=== PATIENT | female | born 1955 | race Caucasian/White ===

== ENCOUNTER 2020-09-22 14:51 | Inpatient (IN) | payer BC ==
[~2020-09-22] VITALS: Ht 162.6 cm; Wt 118.2 kg
[2020-09-22] MEDS ORDERED: LIPITOR (15:51)
[2020-09-22] MEDS ORDERED: OMEPRAZOLE (15:51)
[2020-09-22] MEDS ORDERED: LEVOTHYROXINE (15:51)
[2020-09-22] MEDS ORDERED: CELEBREX (15:51)
[2020-09-22] MEDS ORDERED: HYDROCHLOROTHIAZIDE (15:51)
[2020-09-22] MEDS ORDERED: LOTENSIN (15:51)
[2020-09-22] MEDS ORDERED: ZYLOPRIM (15:51)
[2020-09-22] MEDS ORDERED: TRAZODONE (15:51)
[2020-09-22 16:13] LABS: BASOPHILS % (AUTO) 0.3 % (0.0-2.0); HEMOGLOBIN 12.9 g/dL (10.9-14.3); LYMPHOCYTES # (AUTO) 0.4 K/uL (20.0-40.0); LYMPHOCYTES % (AUTO) 4.1 % (20.5-51.5); MEAN CORPUSCULAR HEMOGLOBIN 30.6 uug (24.7-32.8); MEAN CORPUSCULAR HGB CONC 34 g/dL (32.3-35.6); MEAN CORPUSCULAR VOLUME 90.5 fL (75.5-95.3); MONOCYTES # (AUTO) 0.4 K/uL (2.0-10.0); MONOCYTES % (AUTO) 3.8 % (0.0-11.0); NEUTROPHILS # (AUTO) 9.8 K/uL (1.8-8.9); NEUTROPHILS % (AUTO) 91.8 % (38.5-71.5); PLATELET COUNT (AUTO) 234 K/uL (179-408); WHITE BLOOD COUNT (AUTO) 10.7 K/uL (3.8-11.8)
[2020-09-22] MEDS ORDERED: AZITHROMYCIN IV 500 MG in IV DEXTROSE 5% 250 ML IV ONE (16:15)
[2020-09-22] MEDS ORDERED: DEXAMETHASONE SOD PHOSPHATE 4 MG INJ IV ONE (16:15)
[2020-09-22] MEDS ORDERED: CEFTRIAXONE 1 G in IV DEXTROSE 5% 50 ML IV ONE (16:15)
[2020-09-22] MEDS ORDERED: IV NS 1000 ML 1,000 ML IV ONE ×2 (16:15→18:45)
--- NOTE | 2020-09-22 16:22 | NUR ---
Dr Buchanan talked to patient's daughter in the ER waiting room.
[2020-09-22] MEDS ORDERED: DEXAMETHASONE SOD PHOSPHATE 10 MG INJ ONE (16:23)
[2020-09-22] MEDS ORDERED: CEFTRIAXONE /D5W 50ML IVPB **ER PYXIS IV ONE (16:23)
[2020-09-22] MEDS ORDERED: AZITHROMYCIN 500MG/ D5W 250ML IVPB **ER PYXIS ONLY IV ONE (16:23)
[2020-09-22 16:26] LABS: BILIRUBIN,DIRECT 0.1 mg/dL (0.0-0.2); BILIRUBIN,TOTAL 0.4 mg/dL (0.2-1.0); CREATININE 1.3 mg/dL (0.6-1.3); TOTAL PROTEIN, SERUM 7.9 g/dL (6.4-8.2)
[2020-09-22 16:31] LABS: FERRITIN 968 ng/mL (8-252); LACTATE DEHYDROGENASE 395 U/L (81-234)
[2020-09-22 16:40] LABS: POTASSIUM 3.7 mmol/L (3.5-5.1)
[2020-09-22] MEDS ORDERED: ENOXAPARIN SODIUM 30 MG/0.3 ML DISP.SYRIN SUBCUT ONE (17:30)
[2020-09-22] MEDS ORDERED: ENOXAPARIN SODIUM 40 MG/0.4 ML DISP.SYRIN SQ ONE (17:35)
--- NOTE | 2020-09-22 18:28 | NUR ---
Patient is resting comfortably on gurney with eyes closed, pending available ICU/CCU nurse & bed@this time. Patient is tolerating high flow oxygen (40 liters/min,FqF4=246%).
[2020-09-22] MEDS ORDERED: ONDANSETRON 4 MG/2 ML VIAL IV PRN (18:30)
[2020-09-22] MEDS ORDERED: INSULIN REGULAR, HUMAN 300 UNITS/3 ML VIAL SQ PRN (18:30)
[2020-09-22] MEDS ORDERED: INSULIN REGULAR, HUMAN 300 UNIT/3 ML VIAL SQ PRN (18:30)
[2020-09-22] MEDS ORDERED: ALBUTEROL SULFATE 8 GM HFA.AER.AD IH PRN (18:30)
[2020-09-22] MEDS ORDERED: DEXTROSE 50% 50 ML DISP.SYRIN IV PRN (18:30)
--- NOTE | 2020-09-22 19:06 | NUR ---
Hands off report given to NICOL Courtney : still for CCU/ICU admission, pending available bed & nurse, needs MRSA swab and a hospital bed (from [facility]) if patients stays longer in ER for more comfort.
--- NOTE | 2020-09-22 19:20 | NUR ---
Patient laying on gurny A/Ox3. On high flow O2 via N/C on 40 Liters of O2 at 100%. Patient denies SOB, CP, N/V at this time. Satting at 97%.
[2020-09-22] MEDS: BLOOD SUGAR DIAGNOSTIC 1 EACH STRIP VI SCH (20:22)
[2020-09-22] MEDS ORDERED: INSULIN REGULAR, HUMAN 300 UNIT/3 ML VIAL ONE (20:28)
[2020-09-22] MEDS ORDERED: NOREPINEPHRINE BITARTRATE 8 MG in IV NORMAL SALINE 242 ML IV PRN (21:30)
[2020-09-23] VITALS (8 sets, daily range): BP systolic 107–148; BP diastolic 60–78
--- NOTE | 2020-09-23 | NUR ---
Patient intermittenly sleeping with no distress noted. Patient tolerating high flow N/C with 40 Liters of O2 at 100%. Continue critical monitoring.
[2020-09-23 06:07] LABS: ABG HCO3 19.4 mmol/L; ABG PCO2 30.5 mmHg (35.0-45.0); ABG PH 7.421 (7.350-7.450); ABG PO2 56.8 mmHg (75.0-100.0); ABG SITE RIGHT RADIAL; ABG TOTAL HEMOGLOBIN 13.2 G/dL (12.0-16.0); MetHb 0.3 % (0.0-1.5); O2Hb 89.3 % (94.0-97.0); VENT MODE HF - Aquinox
[2020-09-23 07:27] LABS: BASOPHILS % (AUTO) 0.1 % (0.0-2.0); HEMOGLOBIN 12.9 g/dL (10.9-14.3); LYMPHOCYTES # (AUTO) 0.8 K/uL (20.0-40.0); LYMPHOCYTES % (AUTO) 7.9 % (20.5-51.5); MEAN CORPUSCULAR HEMOGLOBIN 31.1 uug (24.7-32.8); MEAN CORPUSCULAR HGB CONC 34 g/dL (32.3-35.6); MEAN CORPUSCULAR VOLUME 91.7 fL (75.5-95.3); MONOCYTES # (AUTO) 0.6 K/uL (2.0-10.0); MONOCYTES % (AUTO) 6.6 % (0.0-11.0); NEUTROPHILS # (AUTO) 8.4 K/uL (1.8-8.9); NEUTROPHILS % (AUTO) 85.4 % (38.5-71.5); PLATELET COUNT (AUTO) 235 K/uL (179-408); RED BLOOD CELL COUNT(AUTO) 4.15 MIL/uL (3.63-4.92); WHITE BLOOD COUNT (AUTO) 9.8 K/uL (3.8-11.8)
[2020-09-23] MEDS: BLOOD SUGAR DIAGNOSTIC 1 EACH STRIP VI SCH ×4 (07:35→21:00)
[2020-09-23 07:40] LABS: BILIRUBIN,TOTAL 0.5 mg/dL (0.2-1.0); CREATININE 1.1 mg/dL (0.6-1.3); MAGNESIUM 1.6 mg/dL (1.8-2.4); PHOSPHOROUS 2.6 mg/dL (2.5-4.9); POTASSIUM 4.1 mmol/L (3.5-5.1); TOTAL PROTEIN, SERUM 8.2 g/dL (6.4-8.2)
--- NOTE | 2020-09-23 08:21 | NUR ---
PT IS RESTING IN BED COMFORTABLY. CONTINUE TO MONITOR THE PT.
[2020-09-23] MEDS ORDERED: ENOXAPARIN SODIUM 40 MG/0.4 ML DISP.SYRIN SQ ONE (09:03)
[2020-09-23] MEDS ORDERED: DEXAMETHASONE SOD PHOSPHATE 10 MG INJ ONE (09:03)
[2020-09-23] MEDS ORDERED: ASPIRIN 81 MG TAB.CHEW ONE (09:03)
[2020-09-23] MEDS: DEXAMETHASONE SOD PHOSPHATE 4 MG INJ IV SCH (09:11)
[2020-09-23] MEDS: ENOXAPARIN SODIUM 40 MG/0.4 ML DISP.SYRIN SQ SCH (09:12)
[2020-09-23] MEDS: ASPIRIN EC 81 MG TABLET.DR PO SCH (09:12)
[2020-09-23] MEDS ORDERED: MAGNESIUM SULFATE/D5W 200 ML ONE (09:58)
[2020-09-23] MEDS: MAGNESIUM SULFATE/D5W 100 ML IV SCH ×2 (10:05→11:30)
[2020-09-23] MEDS ORDERED: DEXTROSE 50% 50 ML DISP.SYRIN IV PRN (10:30)
[2020-09-23] MEDS ORDERED: MAGNESIUM SULFATE/D5W 100 ML IV SCH (10:30)
[2020-09-23] MEDS ORDERED: HYDR25TA4 PO (10:52)
[2020-09-23] MEDS ORDERED: SITA100T PO (10:52)
[2020-09-23] MEDS ORDERED: OMEP20CA15 PO (10:52)
[2020-09-23] MEDS ORDERED: ALLO100T PO (10:52)
[2020-09-23] MEDS ORDERED: CELE200C PO (10:52)
[2020-09-23] MEDS ORDERED: INSU100V7 SQ (10:52)
[2020-09-23] MEDS ORDERED: TRAZ-257 PO (10:52)
[2020-09-23] MEDS ORDERED: GLIM1TAB18 PO (10:52)
[2020-09-23] MEDS ORDERED: METF-440 PO (10:52)
[2020-09-23] MEDS ORDERED: ATOR40TA PO (10:52)
[2020-09-23] MEDS ORDERED: CHOL10002 PO (10:52)
[2020-09-23] MEDS ORDERED: LEVO150T PO (10:52)
[2020-09-23] MEDS ORDERED: BENA40TA67 PO (10:52)
[2020-09-23] MEDS ORDERED: FERR325T28 PO (10:53)
[2020-09-23] MEDS ORDERED: AMLO10TA4 PO (10:54)
[2020-09-23] MEDS ORDERED: NPH,100V SQ ×2 (10:56)
[2020-09-23] MEDS ORDERED: INSU100V28 SQ (10:58)
[2020-09-23] MEDS: INSULIN REGULAR, HUMAN 300 UNITS/3 ML VIAL SQ PRN (11:55)
[2020-09-23 15:09] LABS: *BILIRUBIN,URIN NEGATIVE (NEGATIVE); *CLARITY,URINE CLEAR (CLEAR); *COLOR,URINE YELLOW (YELLOW); *CREATININE,URINE 89.7 mg/dL (30-125); *KETONES,URINE NEGATIVE (NEGATIVE); *URINE TOTAL PROTEIN RANDOM 89.7 mg/dL (<150/24HR); *UROBILINOGEN,URINE 0.2 E.U./dl (NORMAL); LEUKOCYTE ESTERASE ,URINE NEGATIVE (NEGATIVE); NITRITE, URINE NEGATIVE (NEGATIVE); UGLUCOSE 2+ (NEGATIVE)
[2020-09-23 15:13] LABS: *BLOOD, URINE TRACE LYSED (NEGATIVE)
--- NOTE | 2020-09-23 15:43 | NUR ---
DR TIJERINA EVALUATED THE PT.
--- NOTE | 2020-09-23 16:20 | NUR ---
REPORT WAS GIVEN TO CCU NICOL MEJIA PT WAS TRANSFERED TO ROOM CCU 4.
--- NOTE | 2020-09-23 16:52 | NUR ---
Patient in from E[facility] via [facility] transported by REFRIGERATION SPECIALISTEmilia Toney.. Patient AAOX4. vitals: hr 111, 133/78, saturation of 85% on High-flow 40L. patient desaturating to the mid-80's with minimal exacerbation. Iv line G20 to Right hand HL, patent. Over all skin c.d.i. Upon arrival pt. on the phone with family and period of desaturation sustained. Addendum: 09/23/20 at 1731 by JACKIE SHAIKH RN Temp of 100.8
[2020-09-23 17:05] LABS: RBC,URINE 0-3 /HPF (0-3); WBC,URINE 0-3 /HPF (0-3)
[2020-09-23 17:06] LABS: BACTERIA,URINE FEW /HPF (NONE SEEN); SQUAMOUS EPITHELIAL CELL,UR FEW /HPF (NONE SEEN)
[2020-09-23] MEDS: ACETAMINOPHEN 650 MG SUPP.RECT RC PRN (17:33)
[2020-09-23] MEDS: IV NS 1000 ML 1,000 ML IV PRN (17:35)
[2020-09-23] MEDS: AZITHROMYCIN IV 500 MG in IV DEXTROSE 5% 250 ML IV SCH (17:48)
[2020-09-23] MEDS: CEFTRIAXONE 1 G in IV DEXTROSE 5% 50 ML IV SCH (18:54)
--- NOTE | 2020-09-23 19:15 | NUR ---
received patient awake , oriented x 4 , able to follow command on high flow 100 % , saturating 90 % , hr 93 , bp of 143 /73 t of 99.0 iv ns at 75 ml , iv intact
[2020-09-23] MEDS ORDERED: REMDESIVIR (CHARGED) 200 MG in IV NORMAL SALINE 250 ML IV ONE (20:00)
--- NOTE | 2020-09-23 20:00 | NUR ---
talked to daughter , update given on the patient's condition , breathing and mental status
--- NOTE | 2020-09-23 22:00 | NUR ---
picc line is here to insert picc
--- NOTE | 2020-09-23 23:00 | NUR ---
cxr done , cody to use piccline
[2020-09-24] VITALS (23 sets, daily range): BP systolic 117–168; BP diastolic 35–91
--- NOTE | 2020-09-24 00:30 | NUR ---
patient was place on addtional 100 % nrb to a high flow on 100 % to keep saturation > 85% , due to patient oxygen saturation only low 80 's patient shows mild labored breating at rest
[2020-09-24] MEDS: INSULIN REGULAR, HUMAN 300 UNITS/3 ML VIAL SQ PRN ×2 (01:45→21:30)
[2020-09-24 05:08] LABS: BASOPHILS % (AUTO) 0.2 % (0.0-2.0); HEMATOCRIT 38.7 % (31.2-41.9); LYMPHOCYTES # (AUTO) 1.2 K/uL (20.0-40.0); LYMPHOCYTES % (AUTO) 10.6 % (20.5-51.5); MEAN CORPUSCULAR HEMOGLOBIN 30.9 uug (24.7-32.8); MEAN CORPUSCULAR HGB CONC 34 g/dL (32.3-35.6); MEAN CORPUSCULAR VOLUME 91.7 fL (75.5-95.3); MONOCYTES # (AUTO) 0.7 K/uL (2.0-10.0); MONOCYTES % (AUTO) 5.7 % (0.0-11.0); NEUTROPHILS # (AUTO) 9.7 K/uL (1.8-8.9); NEUTROPHILS % (AUTO) 83.5 % (38.5-71.5); PLATELET COUNT (AUTO) 306 K/uL (179-408); RED BLOOD CELL COUNT(AUTO) 4.22 MIL/uL (3.63-4.92); WHITE BLOOD COUNT (AUTO) 11.6 K/uL (3.8-11.8)
[2020-09-24 05:41] LABS: BILIRUBIN,DIRECT 0.2 mg/dL (0.0-0.2); BILIRUBIN,TOTAL 0.3 mg/dL (0.2-1.0); MAGNESIUM 2.1 mg/dL (1.8-2.4); PHOSPHOROUS 2.2 mg/dL (2.5-4.9); POTASSIUM 3.9 mmol/L (3.5-5.1); TOTAL PROTEIN, SERUM 8.1 g/dL (6.4-8.2)
[2020-09-24] MEDS: ACETAMINOPHEN 650 MG SUPP.RECT RC PRN (05:44)
[2020-09-24 05:48] LABS: THYROID STIMULATING HORMONE 0.963 mIU/mL (0.358-3.740)
--- NOTE | 2020-09-24 06:00 | NUR ---
instructed patient to either try to sleep on the side or prone positioning if can tolerate , verbalizes understanding , oxygen saturation only on high flow at100 % , on lateral positioning saturating 95% , hr 95 , bp of 161 / 73 rr 30 , bs of 267 , temp of 100 , 4 , tylenol pr given
[2020-09-24] MEDS: BLOOD SUGAR DIAGNOSTIC 1 EACH STRIP VI SCH ×4 (06:16→21:30)
[2020-09-24] MEDS: INSULIN REGULAR, HUMAN 300 UNIT/3 ML VIAL SQ PRN (06:18)
[2020-09-24] MEDS: ASPIRIN EC 81 MG TABLET.DR PO SCH (08:06)
[2020-09-24] MEDS: ENOXAPARIN SODIUM 40 MG/0.4 ML DISP.SYRIN SQ SCH (08:06)
[2020-09-24] MEDS: DEXAMETHASONE SOD PHOSPHATE 4 MG INJ IV SCH (08:06)
--- NOTE | 2020-09-24 11:00 | NUR ---
Attending physician Dr. Hoff, in the unit to see and examine pt. order to continue with care plan received. Addendum: 09/24/20 at 1815 by JACKIE SHAIKH RN user error entry intended for a different pt.
[2020-09-24] MEDS: IV NS 1000 ML 1,000 ML IV PRN (13:04)
--- NOTE | 2020-09-24 14:00 | NUR ---
Attending Emilee Medina in the unit to follow up on pt. orders to continue with care plan.
--- NOTE | 2020-09-24 14:00 | NUR ---
Pulmonary services, Dr. Lama in the unit to see and examine pt. report given orders received and implemented.
[2020-09-24 15:41] LABS: ABG BASE EXCESS -1.3 mmol/L; ABG HCO3 21.5 mmol/L; ABG PCO2 30.6 mmHg (35.0-45.0); ABG PH 7.464 (7.350-7.450); ABG PO2 46.9 mmHg (75.0-100.0); ABG SITE RIGHT RADIAL; ABG TOTAL HEMOGLOBIN 13.6 G/dL (12.0-16.0); COHb 1.1 % (0.5-1.5); MetHb 0.3 % (0.0-1.5); VENT MODE HIGH FLOW NASAL CANULA
--- NOTE | 2020-09-24 16:15 | NUR ---
PER DR LILLIANA MALDONADO PRN FOR SOB. PT CURRENTLY TOLERATING HIGH FLOW WITHOUT RESPIRATORY DISTRESS . WILL CONTINUE TO MONITOR
[2020-09-24] MEDS ORDERED: NEUTRA PHOS PACKET PO ONE (16:30)
[2020-09-24] MEDS ORDERED: GLIMEPIRIDE 2 MG TABLET PO SCH (17:00)
[2020-09-24] MEDS: JANUVIA 100 MG PO SCH (17:00)
[2020-09-24] MEDS: GLIMEPIRIDE 2 MG TABLET PO SCH (17:00)
[2020-09-24] MEDS: METFORMIN HCL 500 MG TABLET PO SCH (17:00)
[2020-09-24] MEDS: AZITHROMYCIN IV 500 MG in IV DEXTROSE 5% 250 ML IV SCH (17:07)
[2020-09-24] MEDS ORDERED: LABETALOL HCL 100 MG/20 ML VIAL IV PRN (17:15)
[2020-09-24] MEDS ORDERED: SODIUM PHOSPHATE MM 7.5 MMOL in IV NORMAL SALINE 100 ML IV ONE (18:00)
[2020-09-24] MEDS: CEFTRIAXONE 1 G in IV DEXTROSE 5% 50 ML IV SCH (18:21)
--- NOTE | 2020-09-24 19:10 | NUR ---
Received patient in bed in a left lateral position. Patient currently on Vapotherm High-glow nasal cannula @40L/min and a non-rebreather mask running 15L/min. Oxygen SAT 94%. Patient is a/o x4 and moves independently in bed. Patient is sinus tachy on the monitor. f/c present draining clear yellow urine. COVID-19 +
--- NOTE | 2020-09-24 19:20 | NUR ---
Patient in significant respiratory distress with desaturation into the mid 70s. Attempted to assistant football coach breathing along with repositioning with no success. Oxygen saturation sustained @80% with high flow NC and 15L/min nonrebreather mask. RT involved and will attempt BiPAP.
--- NOTE | 2020-09-24 19:50 | NUR ---
Patient currently in prone position now. Patient saturation increased to 85% and being maintained at that level. Advised RT to start BiPAP.
[2020-09-24] MEDS: REMDESIVIR (CHARGED) 100 MG in IV NORMAL SALINE 100 ML IV SCH (20:05)
--- NOTE | 2020-09-24 20:59 | NUR ---
Patient could not tolerate the BiPAP mask. Patient back on High flow NC plus 15L NRBM. Remains maintaining SAT of 85-86%. Patient remains in prone position.
[2020-09-24] MEDS ORDERED: ATORVASTATIN 40 MG TABLET PO SCH (21:00)
[2020-09-24] MEDS: INSULIN GLARGINE,HUM 300 UNITS/3 ML CARTRIDGE SQ SCH (21:16)
--- NOTE | 2020-09-24 21:50 | NUR ---
Myself and the RT spent a good amount of time working with this patient getting her into a comfortable positions and adjusting Spo2 sensors. Patient seems to prefer a right anterior oblique position(Fitch position), just short of full prone. Oxygen saturation maintained at 94-96% in this position and the patient is no longer in any distress. Patient provided with several additional pillows to maintain comfort and position. Instructed patient to try to maintain a comfortable position that she feels allows her to breath easiest.
--- NOTE | 2020-09-24 22:00 | NUR ---
Family called and informed them of the patients condition. I made every attempt to answer all questions to keep them well informed as to her plan of care. I also informed them to keep contact with the patient to a minimum to allow her to rest as any exertion can easily cause her to desaturate. Informed them that we can pass on any messages they wish to convey during this time, and as the patient's condition improves, they can begin personal calls again.
--- NOTE | 2020-09-24 23:55 | NUR ---
Patient appears to be doing much better. O2 SAT currently 100% and the patient is resting well, though does complain of some discomfort due to the positioning she is in.
[2020-09-25] VITALS (24 sets, daily range): BP systolic 104–169; BP diastolic 44–83
[2020-09-25] MEDS: IV NS 1000 ML 1,000 ML IV PRN (05:18)
[2020-09-25 05:30] LABS: BASOPHILS % (AUTO) 0.4 % (0.0-2.0); HEMATOCRIT 38.1 % (31.2-41.9); LYMPHOCYTES # (AUTO) 1.2 K/uL (20.0-40.0); LYMPHOCYTES % (AUTO) 9.9 % (20.5-51.5); MEAN CORPUSCULAR HEMOGLOBIN 31.2 uug (24.7-32.8); MEAN CORPUSCULAR HGB CONC 34 g/dL (32.3-35.6); MEAN CORPUSCULAR VOLUME 91.3 fL (75.5-95.3); MONOCYTES # (AUTO) 0.5 K/uL (2.0-10.0); MONOCYTES % (AUTO) 4.6 % (0.0-11.0); NEUTROPHILS # (AUTO) 9.9 K/uL (1.8-8.9); NEUTROPHILS % (AUTO) 85.1 % (38.5-71.5); PLATELET COUNT (AUTO) 339 K/uL (179-408); RED BLOOD CELL COUNT(AUTO) 4.17 MIL/uL (3.63-4.92); WHITE BLOOD COUNT (AUTO) 11.7 K/uL (3.8-11.8)
[2020-09-25 06:21] LABS: BILIRUBIN,DIRECT 0.2 mg/dL (0.0-0.2); BILIRUBIN,TOTAL 0.5 mg/dL (0.2-1.0); CREATININE 0.9 mg/dL (0.6-1.3); MAGNESIUM 1.6 mg/dL (1.8-2.4); PHOSPHOROUS 1.9 mg/dL (2.5-4.9); POTASSIUM 3.6 mmol/L (3.5-5.1); TOTAL PROTEIN, SERUM 7.6 g/dL (6.4-8.2)
[2020-09-25] MEDS ORDERED: LEVOTHYROXINE SODIUM 125 MCG TABLET PO SCH (07:00)
[2020-09-25] MEDS ORDERED: LEVOTHYROXINE SODIUM 100 MCG TABLET PO SCH (07:00)
[2020-09-25] MEDS: PANTOPRAZOLE SODIUM 40 MG TABLET.DR PO SCH (07:02)
[2020-09-25] MEDS: INSULIN REGULAR, HUMAN 300 UNIT/3 ML VIAL SQ PRN ×3 (07:22→17:11)
[2020-09-25] MEDS: BLOOD SUGAR DIAGNOSTIC 1 EACH STRIP VI SCH ×4 (07:23→21:16)
[2020-09-25] MEDS ORDERED: LEVOTHYROXINE SODIUM 150 MCG TABLET PO SCH (07:30)
[2020-09-25] MEDS: DEXAMETHASONE SOD PHOSPHATE 4 MG INJ IV SCH (08:16)
[2020-09-25] MEDS: ALLOPURINOL 100 MG TABLET PO SCH (08:19)
[2020-09-25] MEDS: GLIMEPIRIDE 2 MG TABLET PO SCH ×2 (08:20→16:52)
[2020-09-25] MEDS: CHOLECALCIFEROL 1,000 UNIT TABLET PO SCH (08:20)
[2020-09-25] MEDS: ASPIRIN EC 81 MG TABLET.DR PO SCH (08:20)
[2020-09-25] MEDS: FERROUS SULFATE 325 MG TABEC PO SCH (08:30)
[2020-09-25] MEDS: AMLODIPINE 10 MG TABLET PO SCH (08:31)
[2020-09-25] MEDS: BENAZEPRIL HCL 20 MG TABLET PO SCH (08:32)
[2020-09-25] MEDS: CELECOXIB 200 MG CAPSULE PO SCH (08:32)
[2020-09-25] MEDS: JANUVIA 100 MG PO SCH (08:34)
[2020-09-25] MEDS: ENOXAPARIN SODIUM 40 MG/0.4 ML DISP.SYRIN SQ SCH (08:35)
[2020-09-25] MEDS: MAGNESIUM SULFATE/D5W 100 ML IV SCH ×2 (08:43→10:16)
[2020-09-25] MEDS: METFORMIN HCL 500 MG TABLET PO SCH ×2 (08:43→16:56)
[2020-09-25] MEDS ORDERED: HYDROCHLOROTHIAZIDE 25 MG TABLET PO SCH (09:00)
[2020-09-25] MEDS ORDERED: Medication Not On Formulary EA (Omeprazole 20 MG) PO SCH (09:00)
[2020-09-25] MEDS ORDERED: SODIUM PHOSPHATE MM 15 MMOL in IV NORMAL SALINE 250 ML IV ONE (09:00)
[2020-09-25] MEDS: LEVOTHYROXINE SODIUM 100 MCG VIAL IV SCH (09:29)
[2020-09-25] MEDS: POTASSIUM CHLORIDE 50 ML IV SCH ×2 (12:12→13:36)
--- NOTE | 2020-09-25 14:39 | NUR ---
Dr. Lama here to see pt. Full report given. New orders received.
[2020-09-25] MEDS ORDERED: diphenhydrAMINE 50 MG/1 ML VIAL IV ONE (16:30)
[2020-09-25] MEDS ORDERED: ACETAMINOPHEN 650 MG/20.3 ML LIQUID UDC PO ONE (16:30)
[2020-09-25] MEDS ORDERED: TOCILIZUMAB 400 MG in IV NORMAL SALINE 80 ML IV ONE (17:00)
[2020-09-25] MEDS: AZITHROMYCIN IV 500 MG in IV DEXTROSE 5% 250 ML IV SCH (18:19)
--- NOTE | 2020-09-25 19:10 | NUR ---
Received patient in bed in a left lateral position. Patient currently on Vapotherm High-glow nasal cannula @40L/min and a non-rebreather mask running 15L/min. Oxygen SAT 996-99%. Patient is a/o x4 and moves independently in bed. Patient is sinus rhythm on the monitor. f/c present draining clear yellow urine. COVID-19 +. Patient appears to be doing better than the previous night, in better spirits and not as concerned as she was the previous night.
[2020-09-25] MEDS: CEFTRIAXONE 1 G in IV DEXTROSE 5% 50 ML IV SCH (20:06)
[2020-09-25] MEDS: REMDESIVIR (CHARGED) 100 MG in IV NORMAL SALINE 100 ML IV SCH (20:47)
[2020-09-25] MEDS: ATORVASTATIN 40 MG TABLET PO SCH (20:55)
[2020-09-25] MEDS: INSULIN GLARGINE,HUM 300 UNITS/3 ML CARTRIDGE SQ SCH (20:58)
[2020-09-25] MEDS: INSULIN REGULAR, HUMAN 300 UNITS/3 ML VIAL SQ PRN (21:16)
[2020-09-26] VITALS (24 sets, daily range): BP systolic 111–149; BP diastolic 49–82
[2020-09-26 05:27] LABS: ABG BASE EXCESS -0.8 mmol/L; ABG HCO3 23.6 mmol/L; ABG PCO2 38.6 mmHg (35.0-45.0); ABG PH 7.405 (7.350-7.450); ABG PO2 51.5 mmHg (75.0-100.0); ABG SITE RIGHT RADIAL; MetHb 0.3 % (0.0-1.5); O2Hb 85.8 % (94.0-97.0); VENT MODE HIGH FLOW
[2020-09-26 05:43] LABS: BASOPHILS % (AUTO) 0.5 % (0.0-2.0); EOSINOPHILS % (AUTO) 0.3 % (0.0-7.0); HEMOGLOBIN 12.9 g/dL (10.9-14.3); LYMPHOCYTES # (AUTO) 1.3 K/uL (20.0-40.0); LYMPHOCYTES % (AUTO) 15.4 % (20.5-51.5); MEAN CORPUSCULAR HEMOGLOBIN 31.2 uug (24.7-32.8); MEAN CORPUSCULAR HGB CONC 34 g/dL (32.3-35.6); MEAN CORPUSCULAR VOLUME 91.9 fL (75.5-95.3); MONOCYTES # (AUTO) 0.3 K/uL (2.0-10.0); MONOCYTES % (AUTO) 3.3 % (0.0-11.0); NEUTROPHILS # (AUTO) 6.7 K/uL (1.8-8.9); NEUTROPHILS % (AUTO) 80.5 % (38.5-71.5); PLATELET COUNT (AUTO) 309 K/uL (179-408); RED BLOOD CELL COUNT(AUTO) 4.13 MIL/uL (3.63-4.92); WHITE BLOOD COUNT (AUTO) 8.3 K/uL (3.8-11.8)
[2020-09-26 06:00] LABS: BILIRUBIN,DIRECT 0.2 mg/dL (0.0-0.2); BILIRUBIN,TOTAL 0.6 mg/dL (0.2-1.0); CREATININE 0.9 mg/dL (0.6-1.3); MAGNESIUM 2.2 mg/dL (1.8-2.4); PHOSPHOROUS 3.3 mg/dL (2.5-4.9); POTASSIUM 3.8 mmol/L (3.5-5.1); TOTAL PROTEIN, SERUM 7.1 g/dL (6.4-8.2)
[2020-09-26] MEDS: IV NS 1000 ML 1,000 ML IV PRN ×2 (06:01→22:44)
[2020-09-26] MEDS: PANTOPRAZOLE SODIUM 40 MG TABLET.DR PO SCH (06:53)
[2020-09-26] MEDS: BLOOD SUGAR DIAGNOSTIC 1 EACH STRIP VI SCH ×4 (07:06→20:44)
[2020-09-26] MEDS: INSULIN REGULAR, HUMAN 300 UNIT/3 ML VIAL SQ PRN ×2 (07:07→12:13)
[2020-09-26] MEDS: ASPIRIN EC 81 MG TABLET.DR PO SCH (08:03)
[2020-09-26] MEDS: DEXAMETHASONE SOD PHOSPHATE 4 MG INJ IV SCH (08:03)
[2020-09-26] MEDS: CHOLECALCIFEROL 1,000 UNIT TABLET PO SCH (08:05)
[2020-09-26] MEDS: ALLOPURINOL 100 MG TABLET PO SCH (08:05)
[2020-09-26] MEDS: BENAZEPRIL HCL 20 MG TABLET PO SCH (08:05)
[2020-09-26] MEDS: ENOXAPARIN SODIUM 40 MG/0.4 ML DISP.SYRIN SQ SCH (08:06)
[2020-09-26] MEDS: FERROUS SULFATE 325 MG TABEC PO SCH (08:06)
[2020-09-26] MEDS: JANUVIA 100 MG PO SCH (08:07)
[2020-09-26] MEDS: AMLODIPINE 10 MG TABLET PO SCH (08:07)
[2020-09-26] MEDS: CELECOXIB 200 MG CAPSULE PO SCH (08:07)
[2020-09-26] MEDS: METFORMIN HCL 500 MG TABLET PO SCH ×2 (08:07→18:00)
[2020-09-26] MEDS: GLIMEPIRIDE 2 MG TABLET PO SCH ×2 (08:19→18:00)
[2020-09-26] MEDS: LEVOTHYROXINE SODIUM 100 MCG VIAL IV SCH (08:19)
--- NOTE | 2020-09-26 11:01 | NUR ---
Attending N.P. in the unit to see and examine pt. report given and orders to continue with care plan received.
[2020-09-26 13:41] LABS: A/G RATIO 0.5 (0.7-1.7); ALBUMIN 2.5 g/dL (2.9-4.4); ALPHA-1-GLOBULIN 0.5 g/dL (0.0-0.4); ALPHA-2-GLOBULIN 1.6 g/dL (0.4-1.0); BETA GLOBULIN 1.3 g/dL (0.7-1.3); GAMMA GLOBULIN 1.2 g/dL (0.4-1.8); GLOBULIN, TOTAL 4.6 g/dL (2.2-3.9); M-SPIKE Not Observed g/dL (Not Observed)
[2020-09-26] MEDS: AZITHROMYCIN IV 500 MG in IV DEXTROSE 5% 250 ML IV SCH (17:53)
[2020-09-26] MEDS: CEFTRIAXONE 1 G in IV DEXTROSE 5% 50 ML IV SCH (18:55)
[2020-09-26] MEDS: REMDESIVIR (CHARGED) 100 MG in IV NORMAL SALINE 100 ML IV SCH (20:19)
[2020-09-26] MEDS: ATORVASTATIN 40 MG TABLET PO SCH (20:21)
[2020-09-26] MEDS: INSULIN GLARGINE,HUM 300 UNITS/3 ML CARTRIDGE SQ SCH (20:44)
[2020-09-26] MEDS: INSULIN REGULAR, HUMAN 300 UNITS/3 ML VIAL SQ PRN (20:45)
[2020-09-27] VITALS (23 sets, daily range): BP systolic 96–139; BP diastolic 33–81
[2020-09-27 05:22] LABS: BASOPHILS % (AUTO) 0.2 % (0.0-2.0); EOSINOPHILS # (AUTO) 0.2 K/uL (0.0-0.7); EOSINOPHILS % (AUTO) 1.1 % (0.0-7.0); HEMATOCRIT 40.8 % (31.2-41.9); HEMOGLOBIN 13.7 g/dL (10.9-14.3); LYMPHOCYTES % (AUTO) 6.7 % (20.5-51.5); MEAN CORPUSCULAR HGB CONC 34 g/dL (32.3-35.6); MEAN CORPUSCULAR VOLUME 91.9 fL (75.5-95.3); MONOCYTES # (AUTO) 0.3 K/uL (2.0-10.0); MONOCYTES % (AUTO) 1.9 % (0.0-11.0); NEUTROPHILS # (AUTO) 13.6 K/uL (1.8-8.9); NEUTROPHILS % (AUTO) 90.1 % (38.5-71.5); PLATELET COUNT (AUTO) 429 K/uL (179-408); RED BLOOD CELL COUNT(AUTO) 4.44 MIL/uL (3.63-4.92); WHITE BLOOD COUNT (AUTO) 15.1 K/uL (3.8-11.8)
[2020-09-27 06:03] LABS: BILIRUBIN,DIRECT 0.1 mg/dL (0.0-0.2); BILIRUBIN,TOTAL 0.5 mg/dL (0.2-1.0); CREATININE 0.8 mg/dL (0.6-1.3); MAGNESIUM 1.5 mg/dL (1.8-2.4); POTASSIUM 3.7 mmol/L (3.5-5.1); TOTAL PROTEIN, SERUM 7.3 g/dL (6.4-8.2)
[2020-09-27] MEDS ORDERED: LEVOTHYROXINE SODIUM 100 MCG VIAL IV SCH (07:30)
[2020-09-27] MEDS ORDERED: LEVOTHYROXINE SODIUM 100 MCG TABLET PO SCH (07:48)
[2020-09-27] MEDS: MAGNESIUM SULFATE/D5W 100 ML IV SCH ×3 (07:55→10:52)
[2020-09-27] MEDS: DEXAMETHASONE SOD PHOSPHATE 4 MG INJ IV SCH (08:05)
[2020-09-27] MEDS: ASPIRIN EC 81 MG TABLET.DR PO SCH (08:06)
[2020-09-27] MEDS: ALLOPURINOL 100 MG TABLET PO SCH (08:06)
[2020-09-27] MEDS: METFORMIN HCL 500 MG TABLET PO SCH ×2 (08:06→17:36)
[2020-09-27] MEDS: ENOXAPARIN SODIUM 40 MG/0.4 ML DISP.SYRIN SQ SCH (08:07)
[2020-09-27] MEDS: CHOLECALCIFEROL 1,000 UNIT TABLET PO SCH (08:07)
[2020-09-27] MEDS: AMLODIPINE 10 MG TABLET PO SCH (08:07)
[2020-09-27] MEDS: JANUVIA 100 MG PO SCH (08:08)
[2020-09-27] MEDS: BENAZEPRIL HCL 20 MG TABLET PO SCH (08:08)
[2020-09-27] MEDS: FERROUS SULFATE 325 MG TABEC PO SCH (08:08)
[2020-09-27] MEDS: CELECOXIB 200 MG CAPSULE PO SCH (08:09)
[2020-09-27] MEDS: GLIMEPIRIDE 2 MG TABLET PO SCH ×2 (08:20→17:36)
--- NOTE | 2020-09-27 08:30 | NUR ---
SHERIF Cline in the unit and examined patient
[2020-09-27 08:35] LABS: ABG BASE EXCESS -1.5 mmol/L; ABG HCO3 22.1 mmol/L; ABG SITE RIGHT RADIAL; ABG TOTAL HEMOGLOBIN 14.6 G/dL (12.0-16.0); COHb 1.2 % (0.5-1.5); MetHb 0.3 % (0.0-1.5); O2Hb 85.1 % (94.0-97.0)
[2020-09-27] MEDS: BLOOD SUGAR DIAGNOSTIC 1 EACH STRIP VI SCH ×4 (08:53→21:20)
[2020-09-27] MEDS: PANTOPRAZOLE SODIUM 40 MG TABLET.DR PO SCH (08:53)
--- NOTE | 2020-09-27 09:11 | NUR ---
PT RECEIVED AWAKE ALERT AND RESPONSIVE. PT ON VAPOTHERM 100% 40L. SPO2 WITHIN NORMAL LIMITS. WILL CONTINUE TO MONITOR AND TITRATE O2 ACCORDINGLY
--- NOTE | 2020-09-27 11:15 | NUR ---
SHERIF Celestin in the unit and examined patient.
[2020-09-27] MEDS: INSULIN REGULAR, HUMAN 300 UNIT/3 ML VIAL SQ PRN (12:39)
[2020-09-27] MEDS: AZITHROMYCIN IV 500 MG in IV DEXTROSE 5% 250 ML IV SCH (16:14)
[2020-09-27 16:53] LABS: BILIRUBIN,DIRECT 0.1 mg/dL (0.0-0.2); BILIRUBIN,TOTAL 0.4 mg/dL (0.2-1.0); TOTAL PROTEIN, SERUM 5.2 g/dL (6.4-8.2)
[2020-09-27] MEDS: CEFTRIAXONE 1 G in IV DEXTROSE 5% 50 ML IV SCH (17:35)
[2020-09-27] MEDS: IV NS 1000 ML 1,000 ML IV PRN (19:10)
--- NOTE | 2020-09-27 19:17 | NUR ---
Report given to dance professor RN. resident in stable condition.
[2020-09-27] MEDS: ATORVASTATIN 40 MG TABLET PO SCH (20:42)
[2020-09-27] MEDS: INSULIN GLARGINE,HUM 300 UNITS/3 ML CARTRIDGE SQ SCH (21:00)
[2020-09-27] MEDS: REMDESIVIR (CHARGED) 100 MG in IV NORMAL SALINE 100 ML IV SCH (21:28)
--- NOTE | 2020-09-27 21:34 | NUR ---
Spoke to Samir COMPLAINT MANAGER re: Lantus dose. Latest dbsdewour=541 at 2100. Dose held as per COMPLAINT MANAGER.
[2020-09-28] VITALS (87 sets, daily range): BP systolic 63–179; BP diastolic 40–122
--- NOTE | 2020-09-28 | NUR ---
Patient tachypneic, c/o SOB. "I can't breathe!". RT paged. Patient encouraged deep breathing; stayed with patient.
--- NOTE | 2020-09-28 00:05 | NUR ---
RT here; placed on BIPAP; patient very anxious. Advised appropriately.
[2020-09-28] MEDS ORDERED: PROPOFOL 100 ML IV PRN (00:30)
--- NOTE | 2020-09-28 00:30 | NUR ---
Patient still with increased work of breathing; saturations only in the 70's despite BIPAP 100% FIO2. Spoke to Dr. Marshall diversional therapist for Dr. Lama; order received for intubation. Spoke to patient's daughter Parul need for intubation explained. Dr. Marija LONG notified. 2nd RT Raul here.
--- NOTE | 2020-09-28 00:40 | NUR ---
Patient's son Prem called. Informed of intubation procedure. Asking lots of questions. Advised appropriately.
[2020-09-28] MEDS ORDERED: ETOMIDATE 20 MG/10 ML VIAL IV ONE (00:45)
[2020-09-28] MEDS ORDERED: SUCCINYLCHOLINE CHLORIDE 200 MG/10 ML VIAL IV ONE (00:45)
--- NOTE | 2020-09-28 00:45 | NUR ---
PT INITIALLY PLACED ON BIPAP DUE TO O2 DESATURATION AND INCREASED WOB. PT IS TACHYPNEIC AND TACHYCARDIC, PT IS ANXIOUS AND STATES THAT SHE CAN NOT BREATH. O2 SAT NOT IMPROVED. ER DRSamuel CALLED IN FOR INTUBATION. PT SUCCESSFULLY INTUBATED BY ER WITH A SIZE 8.0 ETT SECURED WITH ANCHOR-FAST APPROX. 24CM AT THE LIP. COLOR CHANGE ON END TIDAL, BILATERAL B/S OBSERVED. PT PLACED ON A CHENEY VENT ON SETTINGS OF A/C 20, VT 550, 100%, PEEP +10. PT CONTINUES TO BE TACHYPNEIC AND TACHYCARDIC, SPO2 69%. RT AND RN AT BEDSIDE. WILL CONTINUE TO MONITOR.
--- NOTE | 2020-09-28 00:45 | NUR ---
Successfully intubated by Dr. Dutton with ETT size 8, 24 lip line. Attached to mechanical ventilator settings: AC=20, GYM6=524%, PEEP=10 and WE=006 ml. Premedicated with Etomidate and Succinylcholine IV. PCXR done.
--- NOTE | 2020-09-28 01:02 | NUR ---
Diprivan drip started. Bilateral soft wrist restraints applied. Patient waking up and restless.
[2020-09-28] MEDS: MORPHINE SULFATE 2 MG/1 ML DISP.SYRIN IV PRN (01:04)
--- NOTE | 2020-09-28 01:20 | NUR ---
Spoke to Dr. Marshall again. Patient remains restless. Orders received. Ronnie valentino titrated for adequate sedation.
[2020-09-28] MEDS ORDERED: MIDAZOLAM HCL 50 MG in IV NORMAL SALINE 40 ML IV PRN (01:30)
--- NOTE | 2020-09-28 01:35 | NUR ---
Lesley Berrios research nutritionist for [facility] notified of patient's intubation and low BP. Order received.
[2020-09-28] MEDS ORDERED: NOREPINEPHRINE BITARTRATE 8 MG in IV NORMAL SALINE 242 ML IV PRN (01:45)
--- NOTE | 2020-09-28 01:45 | NUR ---
Patient's son Prem called; updated of patient's condition. Advised to speak to MD in the am.
[2020-09-28] MEDS: PROPOFOL 100 ML IV PRN ×8 (01:46→21:52)
[2020-09-28] MEDS ORDERED: NOREPINEPHRINE BITARTRATE 4 MG/4 ML VIAL IV ONE ×2 (01:54→01:56)
[2020-09-28] MEDS ORDERED: PHENYLEPHRINE 10 MG/1 ML VIAL ONE ×3 (01:57→05:04)
[2020-09-28] MEDS: PHENYLEPHRINE IV 50 MG in IV NORMAL SALINE 245 ML IV PRN ×2 (02:08→06:20)
[2020-09-28] MEDS: LORAZEPAM 2 MG/1 ML VIAL IV PRN ×2 (02:28→04:15)
[2020-09-28 04:02] LABS: ABG BASE EXCESS -8.6 mmol/L; ABG HCO3 16.9 mmol/L; ABG PCO2 35.3 mmHg (35.0-45.0); ABG PH 7.298 (7.350-7.450); ABG PO2 40.5 mmHg (75.0-100.0); ABG SITE RIGHT RADIAL; ABG TOTAL HEMOGLOBIN 14.4 G/dL (12.0-16.0); COHb 1.2 % (0.5-1.5); MetHb 0.1 % (0.0-1.5); O2Hb 69.4 % (94.0-97.0); VENT MODE VENT - A/C; VT, ABG 550 mL
[2020-09-28 05:19] LABS: BASOPHILS # (AUTO) 0.1 K/uL (0.0-8.0); BASOPHILS % (AUTO) 0.5 % (0.0-2.0); EOSINOPHILS # (AUTO) 0.1 K/uL (0.0-0.7); EOSINOPHILS % (AUTO) 0.2 % (0.0-7.0); HEMATOCRIT 43.3 % (31.2-41.9); HEMOGLOBIN 14.1 g/dL (10.9-14.3); LYMPHOCYTES # (AUTO) 0.9 K/uL (20.0-40.0); LYMPHOCYTES % (AUTO) 3.4 % (20.5-51.5); MEAN CORPUSCULAR HEMOGLOBIN 30.5 uug (24.7-32.8); MEAN CORPUSCULAR HGB CONC 33 g/dL (32.3-35.6); MEAN CORPUSCULAR VOLUME 93.4 fL (75.5-95.3); MONOCYTES # (AUTO) 0.5 K/uL (2.0-10.0); MONOCYTES % (AUTO) 1.9 % (0.0-11.0); NEUTROPHILS # (AUTO) 24.8 K/uL (1.8-8.9); PLATELET COUNT (AUTO) 390 K/uL (179-408); RED BLOOD CELL COUNT(AUTO) 4.64 MIL/uL (3.63-4.92); WHITE BLOOD COUNT (AUTO) 26.4 K/uL (3.8-11.8)
[2020-09-28 05:23] LABS: CREATININE 1.3 mg/dL (0.6-1.3); MAGNESIUM 1.9 mg/dL (1.8-2.4); PHOSPHOROUS 5.7 mg/dL (2.5-4.9); POTASSIUM 4.7 mmol/L (3.5-5.1)
[2020-09-28] MEDS: IV NS 1000 ML 1,000 ML IV PRN (06:00)
--- NOTE | 2020-09-28 06:30 | NUR ---
Reflex lactic acid results of 3.8 notified to Samir Meneses, orders received to bolus one 1L NS.
[2020-09-28] MEDS ORDERED: Z GUARD REMEDY PASTE 57 GM TUBE TOP PRN (06:45)
[2020-09-28] MEDS ORDERED: DEXTROSE 50% 50 ML DISP.SYRIN IV PRN (06:45)
[2020-09-28] MEDS: BLOOD SUGAR DIAGNOSTIC 1 EACH STRIP VI SCH ×3 (06:50→17:52)
[2020-09-28] MEDS: INSULIN REGULAR, HUMAN 300 UNIT/3 ML VIAL SQ PRN ×3 (07:28→17:54)
--- NOTE | 2020-09-28 07:34 | NUR ---
Remains on Diprivan drip at 80 mcg/kg/min and Neosynephrine drip at 1.8 mcg/kg/min via JANELLE PICC line. Still tachypneic; saturations in the 70's.
--- NOTE | 2020-09-28 08:08 | NUR ---
Requested NG tube from Samir Meneses and change oral meds to NG or IV.
[2020-09-28 08:20] LABS: ABG BASE EXCESS -6.8 mmol/L; ABG HCO3 20.8 mmol/L; ABG PCO2 49.2 mmHg (35.0-45.0); ABG PH 7.243 (7.350-7.450); ABG PO2 41.1 mmHg (75.0-100.0); ABG SITE RIGHT RADIAL; ABG TOTAL HEMOGLOBIN 14.7 G/dL (12.0-16.0); COHb 1.1 % (0.5-1.5); MetHb 0.1 % (0.0-1.5); O2Hb 69.6 % (94.0-97.0); VENT MODE VENT - A/C; VT, ABG 550 mL
[2020-09-28] MEDS ORDERED: SODIUM BICARBONATE 8.4% 50 MEQ/50 ML DISP.SYRIN IV STA (08:49)
--- NOTE | 2020-09-28 08:50 | NUR ---
PT RECEIVED ON VENT WITH SETTINGS AC20/VT 550/100% /+12 PEEP.ETT SECURED AND AIRWAY PATENT. ABG DONE. CRITICAL RESULTS ENDORSED TO DR TIJERINA. NO VENT CHANGES MADE AT THIS TIME. WILL CONTINUE TO MONITOR.
[2020-09-28] MEDS ORDERED: AMLODIPINE 10 MG TABLET PO SCH (09:00)
[2020-09-28] MEDS ORDERED: BENAZEPRIL HCL 20 MG TABLET PO SCH (09:00)
[2020-09-28] MEDS: CHOLECALCIFEROL 1,000 UNIT TABLET PO SCH (09:23)
[2020-09-28] MEDS: DEXAMETHASONE SOD PHOSPHATE 4 MG INJ IV SCH (09:23)
[2020-09-28] MEDS: ASPIRIN EC 81 MG TABLET.DR PO SCH (09:23)
[2020-09-28] MEDS: Z GUARD REMEDY PASTE 57 GM TUBE TOP SCH ×2 (09:26→21:14)
[2020-09-28] MEDS: ENOXAPARIN SODIUM 40 MG/0.4 ML DISP.SYRIN SQ SCH (09:26)
[2020-09-28] MEDS: PHENYLEPHRINE IV 100 MG in IV NORMAL SALINE 240 ML IV PRN ×2 (09:58→16:43)
[2020-09-28] MEDS: LEVOTHYROXINE SODIUM 100 MCG VIAL IV SCH (10:57)
[2020-09-28] MEDS: ACETAMINOPHEN 650 MG SUPP.RECT RC PRN (12:10)
--- NOTE | 2020-09-28 12:14 | NUR ---
Reported body temp of 100.8 to Samir Meneses received orders to do blood cultures and lactic acid levels.
[2020-09-28 13:12] LABS: CRYPTOCOCCUS AB, SERUM Negative (Negative)
[2020-09-28] MEDS ORDERED: IV NS 1000 ML 1,000 ML IV ONE ×2 (13:30→17:45)
[2020-09-28] MEDS ORDERED: MEROPENEM 1 G in IV NORMAL SALINE 100 ML IV ONE (14:00)
[2020-09-28] MEDS: VANCOMYCIN IV 750 MG in IV DEXTROSE 5% 250 ML IV SCH (14:21)
--- NOTE | 2020-09-28 14:46 | NUR ---
Reported lactic acid level of 3.8 to Samir Meneses and that the patients urine output is minimal to nonexistent and Dr. clancy at bedside who ordered 1L NS bolus IVF.
[2020-09-28 17:18] LABS: ABG HCO3 17.4 mmol/L; ABG PCO2 43.7 mmHg (35.0-45.0); ABG PH 7.219 (7.350-7.450); ABG PO2 65.3 mmHg (75.0-100.0); ABG SITE LEFT RADIAL; ABG TOTAL HEMOGLOBIN 14.1 G/dL (12.0-16.0); COHb 0.9 % (0.5-1.5); MetHb 0.1 % (0.0-1.5); O2Hb 89.2 % (94.0-97.0); VENT MODE VENT - A/C; VT, ABG 550 mL
--- NOTE | 2020-09-28 17:21 | NUR ---
Repeat ABG's called to Dr. Lama, received orders for 1amp Bicarb and notify Dr. Gonzalez to evaluate for Bicarb Drip.
--- NOTE | 2020-09-28 17:27 | NUR ---
[address] TIJERINA VENT SETTING CHANGE MADE. RATE SET TO 26.
[2020-09-28] MEDS ORDERED: SODIUM BICARBONATE 8.4% 50 MEQ/50 ML DISP.SYRIN IV ONE ×2 (17:45→22:01)
[2020-09-28] MEDS: ACETAMINOPHEN 650 MG/20.3 ML LIQUID UDC GT PRN (18:02)
--- NOTE | 2020-09-28 18:07 | NUR ---
Dr. Gonzalez acknowledged that he received my message about evaluation for possible Bicarb drip. No new orders at this time.
--- NOTE | 2020-09-28 20:00 | NUR ---
RECEIVED PT. ORALLY INTUBATED TO VENT W/ SETTINGS OF AC-24, TV-550, FIO2-100%, PEEP-+12 W/ O2 SAT OF 89%. ON DIPRIVAN DRIP @ 35MCQ/KG/MIN. VIA JANELLE PICC LINE. ON NEOSYNEPHRINE DRIP @ 2MCQ/KG/MIN. NS @ 75CC/HR. AFEBRILE.REPOSITIONED W/ HOB ELEVATED.
[2020-09-28] MEDS ORDERED: ENOXAPARIN SODIUM 120 MG/0.8 ML SYRINGE SQ SCH (21:00)
[2020-09-28] MEDS: INSULIN GLARGINE,HUM 300 UNITS/3 ML CARTRIDGE SQ SCH (21:11)
[2020-09-28] MEDS: MEROPENEM 1 G in IV NORMAL SALINE 100 ML IV SCH (21:39)
[2020-09-28] MEDS: SODIUM BICARBONATE 8.4% 150 MEQ in IV D5W 1000ML 1,000 ML IV PRN (22:09)
[2020-09-29] VITALS (58 sets, daily range): BP systolic 61–150; BP diastolic 21–101
[2020-09-29] MEDS: PHENYLEPHRINE IV 100 MG in IV NORMAL SALINE 240 ML IV PRN ×5 (00:07→23:52)
[2020-09-29] MEDS: BLOOD SUGAR DIAGNOSTIC 1 EACH STRIP VI SCH ×5 (00:32→23:45)
[2020-09-29] MEDS: VANCOMYCIN IV 750 MG in IV DEXTROSE 5% 250 ML IV SCH (01:30)
[2020-09-29] MEDS: PROPOFOL 100 ML IV PRN ×6 (02:09→23:07)
[2020-09-29] MEDS ORDERED: Z GUARD REMEDY PASTE 57 GM TUBE TOP PRN (03:45)
--- NOTE | 2020-09-29 05:00 | NUR ---
AM CARE DONE. Z-GUARD CREAM APPLIED TO SACRAL AREA. REPOSITIONED W/ HOB ELEVATED.
[2020-09-29] MEDS: MEROPENEM 1 G in IV NORMAL SALINE 100 ML IV SCH ×3 (05:15→21:43)
[2020-09-29 05:22] LABS: BASOPHILS # (AUTO) 0.1 K/uL (0.0-8.0); BASOPHILS % (AUTO) 0.2 % (0.0-2.0); EOSINOPHILS # (AUTO) 0.2 K/uL (0.0-0.7); EOSINOPHILS % (AUTO) 0.7 % (0.0-7.0); HEMATOCRIT 40.4 % (31.2-41.9); LYMPHOCYTES # (AUTO) 1.7 K/uL (20.0-40.0); LYMPHOCYTES % (AUTO) 6.6 % (20.5-51.5); MEAN CORPUSCULAR HGB CONC 32 g/dL (32.3-35.6); MEAN CORPUSCULAR VOLUME 93.3 fL (75.5-95.3); MONOCYTES # (AUTO) 0.5 K/uL (2.0-10.0); MONOCYTES % (AUTO) 2.1 % (0.0-11.0); NEUTROPHILS % (AUTO) 90.4 % (38.5-71.5); PLATELET COUNT (AUTO) 300 K/uL (179-408); RED BLOOD CELL COUNT(AUTO) 4.32 MIL/uL (3.63-4.92); WHITE BLOOD COUNT (AUTO) 25.5 K/uL (3.8-11.8)
[2020-09-29 05:38] LABS: BILIRUBIN,DIRECT 0.2 mg/dL (0.0-0.2); BILIRUBIN,TOTAL 0.4 mg/dL (0.2-1.0); CREATININE 3.6 mg/dL (0.6-1.3); PHOSPHOROUS 6.4 mg/dL (2.5-4.9); POTASSIUM 4.2 mmol/L (3.5-5.1); TOTAL PROTEIN, SERUM 5.9 g/dL (6.4-8.2)
[2020-09-29] MEDS: INSULIN REGULAR, HUMAN 300 UNIT/3 ML VIAL SQ PRN ×2 (05:45→23:46)
[2020-09-29] MEDS: DEXAMETHASONE SOD PHOSPHATE 4 MG INJ IV SCH (07:55)
[2020-09-29] MEDS: LEVOTHYROXINE SODIUM 100 MCG VIAL IV SCH (07:56)
[2020-09-29] MEDS: CHOLECALCIFEROL 1,000 UNIT TABLET PO SCH (07:57)
[2020-09-29] MEDS: Z GUARD REMEDY PASTE 57 GM TUBE TOP SCH ×4 (07:57→20:52)
[2020-09-29] MEDS: ASPIRIN EC 81 MG TABLET.DR PO SCH (07:57)
[2020-09-29] MEDS: SODIUM BICARBONATE 8.4% 150 MEQ in IV D5W 1000ML 1,000 ML IV PRN (08:12)
[2020-09-29 09:05] LABS: ABG BASE EXCESS -5.1 mmol/L; ABG HCO3 20.7 mmol/L; ABG PCO2 41.1 mmHg (35.0-45.0); ABG PH 7.319 (7.350-7.450); ABG PO2 59.5 mmHg (75.0-100.0); ABG SITE LEFT RADIAL; ABG TOTAL HEMOGLOBIN 13.2 G/dL (12.0-16.0); MetHb 0.3 % (0.0-1.5); O2Hb 88.6 % (94.0-97.0); VENT MODE VENT - A/C; VT, ABG 550 mL
--- NOTE | 2020-09-29 12:07 | NUR ---
Dr. Lama here to see pt. Full report given. New orders received.
--- NOTE | 2020-09-29 13:40 | NUR ---
Per roshan Zhou to give 500NS IV bolus after diureses challenge PRN for blood pressure support. Addendum: 09/29/20 at 1700 by DEEPTI LABOY RN IV 500NS bolus (ONE TIME) PRN for blood pressure support s/p diuresis challenge.
[2020-09-29] MEDS ORDERED: FUROSEMIDE 40 MG/4 ML VIAL IV ONE (13:45)
--- NOTE | 2020-09-29 19:21 | NUR ---
Full telephone SBAR report given to Dr. Gonzalez. New orders received. To call MD with ABG results.
[2020-09-29 19:44] LABS: ABG BASE EXCESS -4.3 mmol/L; ABG PCO2 34.6 mmHg (35.0-45.0); ABG PO2 60.9 mmHg (75.0-100.0); ABG SITE LEFT RADIAL; ABG TOTAL HEMOGLOBIN 13.1 G/dL (12.0-16.0); VENT MODE VENT - A/C; VT, ABG 550 mL
[2020-09-29] MEDS ORDERED: VASOPRESSIN 40 UNIT in IV NORMAL SALINE 40 ML IV PRN (20:00)
--- NOTE | 2020-09-29 20:00 | NUR ---
RECEIVED PT. ORALLY INTUBATED TO VENT W/ SETTINGS OFAC-24, TV-550, FIO2-100%, PEEP-+12 W/ O2 SAT OF 91%. ON DIPRIVAN DRIP @40MCQ/KG/MIN VIA PICC LINE ON JANELLE.ON NEOSYNEPHRINE DRIP @ 3MCQ/KG/MIN. ON LEVOPHED DRIP @ 0.2MCQ/KG /MIN. NGT ON L NARE INTACT & PATENT.TEMP-100.5, TYLENOL 650 LIQ GIVEN VIA NGT. COOLING MEASURES GIVEN. DR. GARCIA NOTIFIED OF ABG RESULTS W/O ORDER.
[2020-09-29 20:13] LABS: CREATININE 4.5 mg/dL (0.6-1.3); POTASSIUM 4.4 mmol/L (3.5-5.1)
[2020-09-29] MEDS: INSULIN GLARGINE,HUM 300 UNITS/3 ML CARTRIDGE SQ SCH (20:51)
[2020-09-29] MEDS ORDERED: ENOXAPARIN SODIUM 60 MG/0.6 ML DISP.SYRIN SQ SCH (21:00)
--- NOTE | 2020-09-29 21:00 | NUR ---
DR. BYRNES NOTIFIED OF ACCUCHECK BS-128, W/ ORDER TO HOLD LANTUS.
[2020-09-29] MEDS ORDERED: BUMETANIDE INJ 6 MG in IV DEXTROSE 5% 36 ML IV ONE (21:15)
[2020-09-29] MEDS: NOREPINEPHRINE BITARTRATE 32 MG in IV NORMAL SALINE 218 ML IV PRN (21:20)
[2020-09-29] MEDS ORDERED: BUMETANIDE 2.5 MG/10 ML VIAL ONE (22:02)
[2020-09-29] MEDS ORDERED: BUMETANIDE 1 MG/4 ML VIAL ONE (22:03)
[2020-09-30] VITALS (62 sets, daily range): BP systolic 61–166; BP diastolic 45–84
[2020-09-30] MEDS: NOREPINEPHRINE BITARTRATE 32 MG in IV NORMAL SALINE 218 ML IV PRN ×2 (00:17→10:20)
[2020-09-30] MEDS: PROPOFOL 100 ML IV PRN ×6 (02:32→23:05)
--- NOTE | 2020-09-30 04:00 | NUR ---
AM CARE DONE. ORAL CARE DONE. Z-GUARD CREAM APPLIED TO SACRUM & PERIANAL AREA. REPOSITIONED.
[2020-09-30] MEDS: PHENYLEPHRINE IV 100 MG in IV NORMAL SALINE 240 ML IV PRN (04:40)
[2020-09-30] MEDS: MEROPENEM 1 G in IV NORMAL SALINE 100 ML IV SCH ×3 (05:48→22:00)
[2020-09-30] MEDS: BLOOD SUGAR DIAGNOSTIC 1 EACH STRIP VI SCH ×3 (06:08→17:17)
[2020-09-30 06:16] LABS: EOSINOPHILS # (AUTO) 0.3 K/uL (0.0-0.7); HEMATOCRIT 40.1 % (31.2-41.9); HEMOGLOBIN 12.9 g/dL (10.9-14.3); LYMPHOCYTES # (AUTO) 1.8 K/uL (20.0-40.0); LYMPHOCYTES % (AUTO) 6.4 % (20.5-51.5); MEAN CORPUSCULAR HEMOGLOBIN 30.1 uug (24.7-32.8); MEAN CORPUSCULAR HGB CONC 32 g/dL (32.3-35.6); MEAN CORPUSCULAR VOLUME 93.5 fL (75.5-95.3); MONOCYTES # (AUTO) 1.1 K/uL (2.0-10.0); NEUTROPHILS # (AUTO) 25.5 K/uL (1.8-8.9); NEUTROPHILS % (AUTO) 88.6 % (38.5-71.5); PLATELET COUNT (AUTO) 305 K/uL (179-408); RED BLOOD CELL COUNT(AUTO) 4.29 MIL/uL (3.63-4.92); WHITE BLOOD COUNT (AUTO) 28.8 K/uL (3.8-11.8)
[2020-09-30 06:33] LABS: BILIRUBIN,TOTAL 0.6 mg/dL (0.2-1.0); CREATININE 4.7 mg/dL (0.6-1.3); MAGNESIUM 2.2 mg/dL (1.8-2.4); PHOSPHOROUS 7.1 mg/dL (2.5-4.9); POTASSIUM 4.5 mmol/L (3.5-5.1); TOTAL PROTEIN, SERUM 6.2 g/dL (6.4-8.2)
[2020-09-30 08:01] LABS: ABG BASE EXCESS -3.9 mmol/L; ABG HCO3 21.9 mmol/L; ABG PCO2 42.4 mmHg (35.0-45.0); ABG PH 7.331 (7.350-7.450); ABG PO2 80.6 mmHg (75.0-100.0); ABG SITE RIGHT RADIAL; ABG TOTAL HEMOGLOBIN 13.4 G/dL (12.0-16.0); COHb 0.9 % (0.5-1.5); MetHb 0.1 % (0.0-1.5); O2Hb 94.6 % (94.0-97.0); VENT MODE VENT - A/C; VT, ABG 550 mL
[2020-09-30] MEDS: DEXAMETHASONE SOD PHOSPHATE 4 MG INJ IV SCH (08:01)
[2020-09-30] MEDS: ASPIRIN EC 81 MG TABLET.DR PO SCH (08:02)
[2020-09-30] MEDS: Z GUARD REMEDY PASTE 57 GM TUBE TOP SCH ×3 (08:02→20:30)
[2020-09-30] MEDS: LEVOTHYROXINE SODIUM 100 MCG VIAL IV SCH (08:03)
[2020-09-30] MEDS: CHOLECALCIFEROL 1,000 UNIT TABLET PO SCH (08:04)
--- NOTE | 2020-09-30 10:20 | NUR ---
SHERIF Lucas and Dr. Mejia here to see pt. Full report given. New orders received. Okay to restart ng tube feeding.
--- NOTE | 2020-09-30 11:22 | NUR ---
Dr. Hare here to see pt. Full report given. New orders received.
[2020-09-30] MEDS: INSULIN REGULAR, HUMAN 300 UNIT/3 ML VIAL SQ PRN ×2 (11:42→17:26)
[2020-09-30] MEDS ORDERED: VANCOMYCIN IV 750 MG in IV DEXTROSE 5% 250 ML IV SCH (14:00)
[2020-09-30] MEDS: GLUCERNA 1.2 1000ML LIQUID GT PRN (14:15)
[2020-09-30 18:15] LABS: CREATININE 4.5 mg/dL (0.6-1.3); POTASSIUM 4.8 mmol/L (3.5-5.1)
--- NOTE | 2020-09-30 20:00 | NUR ---
RECEIVED PT ORALLY INTUBATED TO VENT W/ SETTINGS OF AC-24, TV-550, FIO2-1005, PEEP-+5 W/ O2 SAT OF 99%.ON DIPRIVAN DRIP @ 40MCQ/KG/MIN VIA PICC LINE ON JANELLE.ON NEOSYNEPHRINE DRIP @ 1MCQ /KG/ MIN. ON LEVOPHED DRIP @ 0.2MCQ/KG/MIN. NGT ON LEFT NARE INTACT CHECKED PLACEMENT & CHECKED RESIDUAL 10CC NOTED, ON TUBE OF GLUCERNA 1.2 @ 30CC/HR. KEPT HOB ELEVATED . Addendum: 10/01/20 at 0101 by CORRY AMARAL RN FIO2-100%.
[2020-09-30] MEDS: ACETAMINOPHEN 650 MG/20.3 ML LIQUID UDC GT PRN (23:38)
[2020-10-01] VITALS (57 sets, daily range): BP systolic 92–139; BP diastolic 47–84
--- NOTE | 2020-10-01 | NUR ---
TEMP-102.8, TYLENOL 650MG GIVEN VIA NGT. COOLING MEASURE APPLIED.
[2020-10-01] MEDS: BLOOD SUGAR DIAGNOSTIC 1 EACH STRIP VI SCH ×4 (00:05→17:45)
[2020-10-01] MEDS: INSULIN REGULAR, HUMAN 300 UNIT/3 ML VIAL SQ PRN ×4 (00:06→17:40)
--- NOTE | 2020-10-01 00:15 | NUR ---
Informed Misbah Berrios, DNP, EHS ENGINEER of new orders and patient's poor renal function. He informed me to let the pharmacy handle it as ordered.
--- NOTE | 2020-10-01 02:00 | NUR ---
AM CARE DONE. ORAL CARE DONE.
[2020-10-01] MEDS: PROPOFOL 100 ML IV PRN ×7 (02:31→22:14)
[2020-10-01] MEDS: PHENYLEPHRINE IV 100 MG in IV NORMAL SALINE 240 ML IV PRN (03:32)
[2020-10-01] MEDS: ACETAMINOPHEN 650 MG/20.3 ML LIQUID UDC GT PRN (03:53)
--- NOTE | 2020-10-01 04:00 | NUR ---
PT. TEMP -101 TYLENOL 650MG LIQ GIVEN VIA NGT. COOLING MEASURES GIVEN. Andrei ORTEGA NOTIFIED OF ELEAVATED TEMP NO BLOOD CULTURE ORDER.
[2020-10-01 05:16] LABS: BASOPHILS # (AUTO) 0.1 K/uL (0.0-8.0); BASOPHILS % (AUTO) 0.3 % (0.0-2.0); HEMATOCRIT 38.9 % (31.2-41.9); HEMOGLOBIN 12.4 g/dL (10.9-14.3); LYMPHOCYTES # (AUTO) 1.3 K/uL (20.0-40.0); MEAN CORPUSCULAR HEMOGLOBIN 29.7 uug (24.7-32.8); MEAN CORPUSCULAR HGB CONC 32 g/dL (32.3-35.6); MEAN CORPUSCULAR VOLUME 93.5 fL (75.5-95.3); MONOCYTES # (AUTO) 1.5 K/uL (2.0-10.0); MONOCYTES % (AUTO) 6.8 % (0.0-11.0); NEUTROPHILS # (AUTO) 19.2 K/uL (1.8-8.9); NEUTROPHILS % (AUTO) 86.9 % (38.5-71.5); PLATELET COUNT (AUTO) 284 K/uL (179-408); RED BLOOD CELL COUNT(AUTO) 4.16 MIL/uL (3.63-4.92); WHITE BLOOD COUNT (AUTO) 22.1 K/uL (3.8-11.8)
[2020-10-01 05:29] LABS: CREATININE 4.5 mg/dL (0.6-1.3); MAGNESIUM 2.2 mg/dL (1.8-2.4); PHOSPHOROUS 5.7 mg/dL (2.5-4.9); POTASSIUM 4.7 mmol/L (3.5-5.1)
[2020-10-01] MEDS: MEROPENEM 1 G in IV NORMAL SALINE 100 ML IV SCH ×3 (05:43→21:40)
--- NOTE | 2020-10-01 06:00 | NUR ---
TEMP-100.8. COOLING MEASURE CONT APPLIED.
[2020-10-01] MEDS: Z GUARD REMEDY PASTE 57 GM TUBE TOP SCH ×2 (07:47→20:16)
[2020-10-01] MEDS: LEVOTHYROXINE SODIUM 100 MCG VIAL IV SCH (07:47)
[2020-10-01] MEDS: ASPIRIN EC 81 MG TABLET.DR PO SCH (07:47)
[2020-10-01] MEDS: DEXAMETHASONE SOD PHOSPHATE 4 MG INJ IV SCH (07:47)
[2020-10-01] MEDS: NOREPINEPHRINE BITARTRATE 32 MG in IV NORMAL SALINE 218 ML IV PRN ×2 (07:48→18:56)
[2020-10-01] MEDS: CHOLECALCIFEROL 1,000 UNIT TABLET PO SCH (07:50)
[2020-10-01 08:01] LABS: ABG BASE EXCESS -4.2 mmol/L; ABG HCO3 21.8 mmol/L; ABG PH 7.322 (7.350-7.450); ABG PO2 82.7 mmHg (75.0-100.0); ABG SITE LEFT BRACHIAL; ABG TOTAL HEMOGLOBIN 14.3 G/dL (12.0-16.0); COHb 0.9 % (0.5-1.5); MetHb 0.1 % (0.0-1.5); O2Hb 94.2 % (94.0-97.0); VENT MODE VENT - A/C; VT, ABG 550 mL
--- NOTE | 2020-10-01 09:58 | NUR ---
DOOR TO DOOR FUNDRAISING COLLECTOR Lance here to see pt. Full report given. No new orders received at this time.
--- NOTE | 2020-10-01 10:10 | NUR ---
Dr. Mejia here to see pt. Full report given. New orders received.
[2020-10-01] MEDS ORDERED: IV NORMAL SALINE 500 ML IV ONE (10:15)
--- NOTE | 2020-10-01 10:30 | NUR ---
Dr. Hare here to see pt. Full report given. New orders received.
[2020-10-01] MEDS: IV NS 1000 ML 1,000 ML IV PRN (10:34)
--- NOTE | 2020-10-01 11:26 | NUR ---
PT RECEIVED ON VENT WITH 8 ETT SECURED AT 24CM LIP LINE. VENT SETTINGS AC26/550/100%/+12 PEEP. PT TOLERATING CURRENT VENT SETTINGS FINE WITH NO DISTRESS. WILL CONTINUE TO MONITOR
--- NOTE | 2020-10-01 15:36 | NUR ---
VENT SETTING CHANGES MADE. PEEP DECREASED TO 10 WITH SPO2 MAINTAINING AT 100%. WILL CONTINUE TO MONITOR
--- NOTE | 2020-10-01 17:45 | NUR ---
VENT SETTING CHANGES MADE. PEEP TITRATED DOWN TO 8 WITH SPO2 MAINTAINING AT 100%. WILL CONTINUE TO MONITOR.
--- NOTE | 2020-10-01 22:45 | NUR ---
Noticed the patient's heart rate increasing and blood pressure steadily increasing despite consistently lowering the Levophed. Assessed the patient and found her to be very hot to the touch. Axillary temperature showed 103.2. I immediately packed the patient with ice packs and administered Tylenol. I placed the patient on the liquid cooling blanket machine. This machine requires continuous rectal temperature monitoring, and the machine read a rectal temperature of 105.8.
--- NOTE | 2020-10-01 22:46 | NUR ---
2044 SBP in in the high 120s to low 130s. will begin to titrate down on the norepinephrine as tolerated. Current rate is 0.2mcg/kg/min. New rate 0.18mcg/kg/min.
[2020-10-02] VITALS (82 sets, daily range): BP systolic 79–163; BP diastolic 37–93
--- NOTE | 2020-10-02 | NUR ---
Spoke with Dr. Restrepo from infectious disease and gave report on the patient's condition. Informed him that the patient still has pending blood cultures from 09/28/2020. He ordered a new set of blood cultures x2, respiratory culture, urine culture, vancomycin pharmacy to dose, and micafungin pharmacy to dose.
[2020-10-02] MEDS ORDERED: VANCOMYCIN IV 2,000 MG in IV DEXTROSE 5% 500 ML IV ONE (00:15)
--- NOTE | 2020-10-02 00:15 | NUR ---
Informed Misbah Berrios, DNP, DOCUMENT CONTROL COORDINATOR of new orders and patient's poor renal function. He informed me to let the pharmacy handle it as ordered.
--- NOTE | 2020-10-02 00:30 | NUR ---
Spoke with the night pharmacy in regards to the patient's poor kidney function labs, and the pharmacist stated it is ok to give the loading dose as that is not affecting renal function, and the routine doses will be dosed according to the patients renal function.
[2020-10-02] MEDS: BLOOD SUGAR DIAGNOSTIC 1 EACH STRIP VI SCH ×4 (00:44→18:05)
[2020-10-02] MEDS: INSULIN REGULAR, HUMAN 300 UNIT/3 ML VIAL SQ PRN ×4 (00:45→18:05)
[2020-10-02 00:51] LABS: *BILIRUBIN,URIN NEGATIVE (NEGATIVE); *BLOOD, URINE 2+ (NEGATIVE); *CLARITY,URINE CLOUDY (CLEAR); *COLOR,URINE YELLOW (YELLOW); *KETONES,URINE NEGATIVE (NEGATIVE); *UROBILINOGEN,URINE 0.2 E.U./dl (NORMAL); LEUKOCYTE ESTERASE ,URINE TRACE (NEGATIVE); NITRITE, URINE NEGATIVE (NEGATIVE); PH,URINE 5.5 (5.0-8.0); UGLUCOSE NEGATIVE (NEGATIVE)
--- NOTE | 2020-10-02 01:11 | NUR ---
Noticed a change in the patient's heart rhythm. Patient suddenly developed an irregular rhythm. ECG ordered.
[2020-10-02] MEDS ORDERED: VANCOMYCIN 1000 MG VIAL ONE (01:27)
--- NOTE | 2020-10-02 01:48 | NUR ---
Patient spontaneously converted to a normal sinus rhythm. Was unable to obtain a 12 lead ECG by the time she converted. Abnormal rhythm strip printed and placed in chart should Category Consultant wish to assess the rhythm.
[2020-10-02] MEDS: PROPOFOL 100 ML IV PRN ×6 (02:21→21:52)
[2020-10-02] MEDS: MICAFUNGIN SODIUM 100 MG in IV NORMAL SALINE 100 ML IV SCH (02:30)
--- NOTE | 2020-10-02 03:30 | NUR ---
Stopped the liquid cooling machine as rectal temp showed 99.3. Placed the machine on continuous rectal temp monitoring.
[2020-10-02 05:29] LABS: BASOPHILS # (AUTO) 0.1 K/uL (0.0-8.0); BASOPHILS % (AUTO) 0.7 % (0.0-2.0); EOSINOPHILS % (AUTO) 0.1 % (0.0-7.0); HEMATOCRIT 39.3 % (31.2-41.9); HEMOGLOBIN 12.6 g/dL (10.9-14.3); LYMPHOCYTES % (AUTO) 9.3 % (20.5-51.5); MEAN CORPUSCULAR HEMOGLOBIN 30.1 uug (24.7-32.8); MEAN CORPUSCULAR HGB CONC 32 g/dL (32.3-35.6); MEAN CORPUSCULAR VOLUME 93.9 fL (75.5-95.3); MONOCYTES # (AUTO) 1.8 K/uL (2.0-10.0); MONOCYTES % (AUTO) 8.6 % (0.0-11.0); NEUTROPHILS # (AUTO) 17.3 K/uL (1.8-8.9); NEUTROPHILS % (AUTO) 81.3 % (38.5-71.5); PLATELET COUNT (AUTO) 251 K/uL (179-408); RED BLOOD CELL COUNT(AUTO) 4.18 MIL/uL (3.63-4.92); WHITE BLOOD COUNT (AUTO) 21.3 K/uL (3.8-11.8)
[2020-10-02] MEDS: IV NS 1000 ML 1,000 ML IV PRN ×2 (05:31→20:14)
[2020-10-02 05:50] LABS: BILIRUBIN,TOTAL 0.7 mg/dL (0.2-1.0); CREATININE 3.3 mg/dL (0.6-1.3); MAGNESIUM 2.2 mg/dL (1.8-2.4); POTASSIUM 4.7 mmol/L (3.5-5.1); TOTAL PROTEIN, SERUM 5.7 g/dL (6.4-8.2)
[2020-10-02] MEDS: MEROPENEM 1 G in IV NORMAL SALINE 100 ML IV SCH ×3 (06:47→21:41)
--- NOTE | 2020-10-02 07:12 | NUR ---
Received report from shift production supervisor nurse, patient in bed sedated on propofol on Shanda vent a/c24 TV 550 fio2 100% Peep 12, gallego intact, propofol running at 40mcg/kg/min, levophed @ 0.28mcg/kg/min, IVF NS 100cc/hr. Patient on Barimax bed, inflated and turning q15min. Patient is in rapid AFIB/Sinus rhythm. Afebrile at this time.
[2020-10-02 07:28] LABS: BACTERIA,URINE FEW /HPF (NONE SEEN); SQUAMOUS EPITHELIAL CELL,UR MODERATE /HPF (NONE SEEN); URINE AMORPHOUS URATE MODERATE /HPF; YEAST,URINE BUDDING YEAST /HPF (NONE SEEN)
[2020-10-02] MEDS ORDERED: ETOMIDATE 20 MG/10 ML VIAL MC ONE (07:44)
[2020-10-02] MEDS ORDERED: SUCCINYLCHOLINE CHLORIDE 200 MG/10 ML VIAL MC ONE (07:45)
[2020-10-02] MEDS: ASPIRIN EC 81 MG TABLET.DR PO SCH (08:08)
[2020-10-02] MEDS: DEXAMETHASONE SOD PHOSPHATE 4 MG INJ IV SCH (08:08)
[2020-10-02] MEDS: LEVOTHYROXINE SODIUM 100 MCG VIAL IV SCH (08:08)
[2020-10-02] MEDS: CHOLECALCIFEROL 1,000 UNIT TABLET PO SCH (08:09)
[2020-10-02] MEDS: Z GUARD REMEDY PASTE 57 GM TUBE TOP SCH ×2 (08:10→20:54)
[2020-10-02 08:11] LABS: ABG BASE EXCESS -5.1 mmol/L; ABG HCO3 21.6 mmol/L; ABG PCO2 46.2 mmHg (35.0-45.0); ABG PH 7.287 (7.350-7.450); ABG PO2 76.2 mmHg (75.0-100.0); ABG SITE LEFT RADIAL; ABG TOTAL HEMOGLOBIN 13.8 G/dL (12.0-16.0); COHb 1.2 % (0.5-1.5); MetHb 0.1 % (0.0-1.5); O2Hb 92.3 % (94.0-97.0); VENT MODE VENT - A/C; VT, ABG 550 mL
--- NOTE | 2020-10-02 09:20 | NUR ---
EKG sent to Dr. Lauren, orders to be started of amioderone per Cardio.
--- NOTE | 2020-10-02 10:10 | NUR ---
SHERIF Schaeffer in unit to evaluate labs, notified him of patient conditions and abnormal labs and lactic acid. No new orders at this time.
[2020-10-02] MEDS ORDERED: AMIODARONE HCL IV 150 MG in IV DEXTROSE 5% 100 ML IV ONE (10:45)
--- NOTE | 2020-10-02 11:45 | NUR ---
Leonidas in unit to evaluate condition, full report given.
[2020-10-02] MEDS: AMIODARONE HCL IV 450 MG in IV DEXTROSE 5% 250 ML IV PRN ×2 (11:48→18:29)
[2020-10-02] MEDS: ENOXAPARIN SODIUM 100 MG/ML DISP.SYRIN SQ SCH (11:50)
--- NOTE | 2020-10-02 12:40 | NUR ---
Dr. Lama in unit, full report given.
[2020-10-02] MEDS: ACETAMINOPHEN 650 MG/20.3 ML LIQUID UDC GT PRN ×2 (13:02→22:55)
[2020-10-02] MEDS: NOREPINEPHRINE BITARTRATE 32 MG in IV NORMAL SALINE 218 ML IV PRN (13:51)
--- NOTE | 2020-10-02 15:30 | NUR ---
Due to increased IV drips, new midline insertion ordered and placed in left upper arm.
--- NOTE | 2020-10-02 16:00 | NUR ---
Patient given cool bath, and placed on cooling blanket as other cooling measures not effective. Tylenol previously given and Ice packs to groin.
--- NOTE | 2020-10-02 18:55 | NUR ---
Patient continues to be on susana vent a/c 24 TV 550 peep 12 fio2 100%, sedated with propofol 40mcg/kg/min, levophed 0.24 mcg/kg/min, ivf NS 100ml/hr, amiodarone 0.5mg/hr, HR in afib 93 bpm, 100% oxygen saturation. Air mattress inflated, tube feeding running and gallego intact.
--- NOTE | 2020-10-02 19:10 | NUR ---
Received patient in bed sedated on propofol on Shanda vent a/c24 TV 550 fio2 100% Peep 12, gallego intact, propofol running at 40mcg/kg/min, levophed @ 0.24mcg/kg/min, IVF NS 100cc/hr. Patient on Barimax bed, inflated and turning q15min. Patient is in rapid AFIB currently on Amiodarone drip running 0.5mg/min. Afebrile with cooling blanket on at this time. .
[2020-10-03] VITALS (57 sets, daily range): BP systolic 87–162; BP diastolic 42–88
[2020-10-03] MEDS: BLOOD SUGAR DIAGNOSTIC 1 EACH STRIP VI SCH ×4 (00:36→17:24)
[2020-10-03] MEDS: INSULIN REGULAR, HUMAN 300 UNIT/3 ML VIAL SQ PRN ×4 (00:37→17:22)
[2020-10-03] MEDS: MICAFUNGIN SODIUM 100 MG in IV NORMAL SALINE 100 ML IV SCH (00:38)
[2020-10-03] MEDS: PROPOFOL 100 ML IV PRN ×8 (01:09→23:52)
[2020-10-03] MEDS: ACETAMINOPHEN 650 MG/20.3 ML LIQUID UDC GT PRN ×2 (02:54→17:45)
--- NOTE | 2020-10-03 04:17 | NUR ---
Patient converted to a normal sinus rhythm with a hr of 74 @0410. Apical pulse regular rhythm, carotid pulse regular rhythm, all peripheral pulses now have a regular rhythm. Patient will remain on amiodarone drip until completion of the protocol @1145 or until discontinued by retail merchandising specialist.
--- NOTE | 2020-10-03 04:22 | NUR ---
patient in bed sedated on propofol on Shanda vent a/c24 TV 550 fio2 100% Peep 12, gallego intact, propofol running at 40mcg/kg/min, levophed @ 0.28mcg/kg/min, IVF NS 100cc/hr. Patient on Barimax bed, inflated and turning q15min. Patient is in rapid AFIB currently on Amiodarone drip running 0.5mg/min. Afebrile at this time.
[2020-10-03 05:05] LABS: BASOPHILS # (AUTO) 0.1 K/uL (0.0-8.0); BASOPHILS % (AUTO) 0.2 % (0.0-2.0); EOSINOPHILS # (AUTO) 0.1 K/uL (0.0-0.7); EOSINOPHILS % (AUTO) 0.3 % (0.0-7.0); HEMATOCRIT 39.3 % (31.2-41.9); HEMOGLOBIN 12.6 g/dL (10.9-14.3); LYMPHOCYTES # (AUTO) 1.6 K/uL (20.0-40.0); LYMPHOCYTES % (AUTO) 5.8 % (20.5-51.5); MEAN CORPUSCULAR HEMOGLOBIN 30.2 uug (24.7-32.8); MEAN CORPUSCULAR HGB CONC 32 g/dL (32.3-35.6); MEAN CORPUSCULAR VOLUME 94.4 fL (75.5-95.3); MONOCYTES # (AUTO) 1.7 K/uL (2.0-10.0); MONOCYTES % (AUTO) 6.2 % (0.0-11.0); NEUTROPHILS # (AUTO) 24.7 K/uL (1.8-8.9); NEUTROPHILS % (AUTO) 87.5 % (38.5-71.5); PLATELET COUNT (AUTO) 232 K/uL (179-408); RED BLOOD CELL COUNT(AUTO) 4.16 MIL/uL (3.63-4.92); WHITE BLOOD COUNT (AUTO) 28.3 K/uL (3.8-11.8)
[2020-10-03 05:25] LABS: BILIRUBIN,TOTAL 0.5 mg/dL (0.2-1.0); CREATININE 2.2 mg/dL (0.6-1.3); MAGNESIUM 2.1 mg/dL (1.8-2.4); PHOSPHOROUS 6.1 mg/dL (2.5-4.9); POTASSIUM 5.1 mmol/L (3.5-5.1); TOTAL PROTEIN, SERUM 5.8 g/dL (6.4-8.2)
[2020-10-03] MEDS: IV NS 1000 ML 1,000 ML IV PRN ×2 (06:19→19:39)
[2020-10-03] MEDS: MEROPENEM 1 G in IV NORMAL SALINE 100 ML IV SCH ×3 (06:19→22:21)
[2020-10-03 08:06] LABS: COMPLEMENT, C3 SERUM 128 mg/dL (82-167); COMPLEMENT, C4 SERUM 30 mg/dL (12-38)
[2020-10-03 08:09] LABS: ABG BASE EXCESS -3.5 mmol/L; ABG HCO3 22.8 mmol/L; ABG PCO2 45.8 mmHg (35.0-45.0); ABG PH 7.315 (7.350-7.450); ABG PO2 91.9 mmHg (75.0-100.0); ABG SITE RIGHT RADIAL; ABG TOTAL HEMOGLOBIN 12.9 G/dL (12.0-16.0); O2Hb 95.4 % (94.0-97.0); VENT MODE VENT - A/C; VT, ABG 550 mL
[2020-10-03] MEDS: NOREPINEPHRINE BITARTRATE 32 MG in IV NORMAL SALINE 218 ML IV PRN (08:16)
[2020-10-03] MEDS: ASPIRIN EC 81 MG TABLET.DR PO SCH (08:20)
[2020-10-03] MEDS: PROTEIN SUPPLEMENT (PROSTAT) 30 ML LIQUID NG SCH ×3 (08:22→16:39)
[2020-10-03] MEDS: Z GUARD REMEDY PASTE 57 GM TUBE TOP SCH ×2 (08:22→20:10)
[2020-10-03] MEDS: LEVOTHYROXINE SODIUM 100 MCG VIAL IV SCH (08:22)
[2020-10-03] MEDS: CHOLECALCIFEROL 1,000 UNIT TABLET PO SCH (09:03)
[2020-10-03] MEDS: AMIODARONE HCL 200 MG TABLET PO SCH ×2 (11:00→20:09)
[2020-10-03] MEDS: ENOXAPARIN SODIUM 100 MG/ML DISP.SYRIN SQ SCH (11:02)
[2020-10-03 11:07] LABS: *ANTI-SCLERODERMA-70 AB <0.2 AI (0.0-0.9); *SJOGREN'S ANTI-SS-A >8.0 AI (0.0-0.9); *SJOGREN'S ANTI-SS-B 1.2 AI (0.0-0.9); *SMITH ANTIBODIES <0.2 AI (0.0-0.9); ANTI-DNA(DS) AB, QN 6 IU/mL (0-9); HEPATITIS B SURFACE AB Non Reactive (.); HEPATITIS B SURFACE AG Negative (Negative)
--- NOTE | 2020-10-03 13:31 | NUR ---
Dr. Lama here to see pt. Full report given. New orders received.
[2020-10-03] MEDS ORDERED: VANCOMYCIN IV 1,000 MG in IV DEXTROSE 5% 250 ML IV SCH (14:00)
--- NOTE | 2020-10-03 19:00 | NUR ---
Received patient from AM nurse. Safety measures in place. Will continue plan of care. Levophed running at 0.1mcg/kg/min -- Propofol running at 40mcg/kg/min --- NS 0.9 running at 100cc hr. Line patent and intact. Pertinent assessments underway. Peter in place and draining urine. Will monitor and assess.
--- NOTE | 2020-10-03 21:54 | NUR ---
Ice pack placed on groin -- Temperature 100.2 Will monitor and assess.
[2020-10-04] VITALS (79 sets, daily range): BP systolic 84–146; BP diastolic 39–68
[2020-10-04] MEDS: BLOOD SUGAR DIAGNOSTIC 1 EACH STRIP VI SCH ×4 (00:16→18:00)
[2020-10-04] MEDS: INSULIN REGULAR, HUMAN 300 UNIT/3 ML VIAL SQ PRN ×4 (01:28→18:01)
[2020-10-04] MEDS: MICAFUNGIN SODIUM 100 MG in IV NORMAL SALINE 100 ML IV SCH (01:34)
[2020-10-04] MEDS: PROPOFOL 100 ML IV PRN ×6 (02:29→21:06)
--- NOTE | 2020-10-04 03:23 | NUR ---
Patients Temperature has dropped to 99.3 after cooling measures -- Ice pack applied to groin 2-3 times to prevent any increase in temperature as has been the case with previous shifts. Will monitor and assess.
--- NOTE | 2020-10-04 03:30 | NUR ---
Patients Levophed Titrated down from 0.1mcg/kg/min to 0.05mcg/kg/min Will monitor and assess change.
[2020-10-04 05:27] LABS: BASOPHILS # (AUTO) 0.2 K/uL (0.0-8.0); EOSINOPHILS # (AUTO) 0.1 K/uL (0.0-0.7); EOSINOPHILS % (AUTO) 0.6 % (0.0-7.0); HEMATOCRIT 36.6 % (31.2-41.9); HEMOGLOBIN 11.4 g/dL (10.9-14.3); LYMPHOCYTES # (AUTO) 0.9 K/uL (20.0-40.0); LYMPHOCYTES % (AUTO) 4.6 % (20.5-51.5); MEAN CORPUSCULAR HEMOGLOBIN 29.7 uug (24.7-32.8); MEAN CORPUSCULAR HGB CONC 31 g/dL (32.3-35.6); MONOCYTES % (AUTO) 4.6 % (0.0-11.0); NEUTROPHILS # (AUTO) 18.5 K/uL (1.8-8.9); NEUTROPHILS % (AUTO) 89.2 % (38.5-71.5); PLATELET COUNT (AUTO) 195 K/uL (179-408); RED BLOOD CELL COUNT(AUTO) 3.85 MIL/uL (3.63-4.92); WHITE BLOOD COUNT (AUTO) 20.7 K/uL (3.8-11.8)
[2020-10-04] MEDS: MEROPENEM 1 G in IV NORMAL SALINE 100 ML IV SCH ×3 (06:08→21:06)
[2020-10-04 06:09] LABS: BILIRUBIN,DIRECT 0.3 mg/dL (0.0-0.2); BILIRUBIN,TOTAL 0.6 mg/dL (0.2-1.0); CREATININE 1.8 mg/dL (0.6-1.3); MAGNESIUM 2.3 mg/dL (1.8-2.4); POTASSIUM 4.6 mmol/L (3.5-5.1); TOTAL PROTEIN, SERUM 5.7 g/dL (6.4-8.2)
[2020-10-04] MEDS: IV NS 1000 ML 1,000 ML IV PRN (06:26)
[2020-10-04] MEDS: ACETAMINOPHEN 650 MG/20.3 ML LIQUID UDC GT PRN (06:45)
--- NOTE | 2020-10-04 06:54 | NUR ---
Will be handing off patient to AM nurse. Patient has 0.9NS running at 100cc/hr, Levophed at 0.05mcg/kg/min, Propofol at 40mcg/kg/min. VSS. No signs of distress. All lines intact and patent. Patient had temperature of 100.3 at beginning of shift -- it is now 99.3 -- cooling blanket + ice packs + PRN Tylenol. Cleaned, repositioned, and dressing changed routinely. 1300mL urine output. Will endorse to AM nurse.
--- NOTE | 2020-10-04 07:20 | NUR ---
Received report from conveyor installer nurse, patient in sinus rhythm on the monitor, ON levophed 0.05mcg/kg/min, IV fluids 100cc/hr NS, propofol at 40mcg/kg/min. Patient inubated with gallego intact, on bariroslyn bed. NG tube clamped, cooling blanket on top of patient. Patient has temp of 99.7.
[2020-10-04] MEDS: PROTEIN SUPPLEMENT (PROSTAT) 30 ML LIQUID NG SCH ×3 (08:00→17:18)
--- NOTE | 2020-10-04 09:00 | NUR ---
Notified Nephro that Sodium level is elevated, received orders for 1/2 ns fluids.
[2020-10-04] MEDS: LEVOTHYROXINE SODIUM 100 MCG VIAL IV SCH (09:07)
[2020-10-04] MEDS: ASPIRIN EC 81 MG TABLET.DR PO SCH (09:07)
[2020-10-04] MEDS: CHOLECALCIFEROL 1,000 UNIT TABLET PO SCH (09:07)
[2020-10-04] MEDS: Z GUARD REMEDY PASTE 57 GM TUBE TOP SCH ×2 (09:08→20:22)
[2020-10-04] MEDS: AMIODARONE HCL 200 MG TABLET PO SCH ×2 (09:08→21:00)
[2020-10-04 09:29] LABS: ABG BASE EXCESS -1.6 mmol/L; ABG HCO3 23.6 mmol/L; ABG PCO2 41.4 mmHg (35.0-45.0); ABG PH 7.373 (7.350-7.450); ABG PO2 74.6 mmHg (75.0-100.0); ABG SITE RIGHT RADIAL; ABG TOTAL HEMOGLOBIN 12.1 G/dL (12.0-16.0); COHb 0.8 % (0.5-1.5); MetHb 0.1 % (0.0-1.5); O2Hb 93.5 % (94.0-97.0); VENT MODE VENT - A/C; VT, ABG 550 mL
[2020-10-04] MEDS: GLUCERNA 1.2 1000ML LIQUID GT PRN (10:00)
[2020-10-04] MEDS: IV 1/2NS 1000 ML 1,000 ML IV PRN ×2 (11:00→21:20)
[2020-10-04] MEDS: NOREPINEPHRINE BITARTRATE 8 MG in IV NORMAL SALINE 242 ML IV PRN ×2 (11:03→11:31)
[2020-10-04] MEDS: ENOXAPARIN SODIUM 100 MG/ML DISP.SYRIN SQ SCH (12:17)
[2020-10-04] MEDS ORDERED: IV D5W 1000ML 1,000 ML IV ONE (14:00)
[2020-10-04] MEDS ORDERED: VANCOMYCIN IV 1,500 MG in IV DEXTROSE 5% 500 ML IV SCH (14:00)
--- NOTE | 2020-10-04 14:00 | NUR ---
Notified Elysia Snell that patient had been previously switched to 1/2ns, water flush orders received 200cc/hr.
--- NOTE | 2020-10-04 18:35 | NUR ---
Patient in bed sedated and intubated with ETT 8 ac 26 TV 550 Peep 8 50% fio2. Saturation 99%, Hemodynamically stable, tachycardic rate 107, temp 99F on cooling blanket underneath her. Peter intact with urine output of 1250cc for the shift, no BM, tube feeding running at 25cc/hr, water flushes initiated today by Elysia Snell. Patient on [facility] bed with continuous rotation.
--- NOTE | 2020-10-04 19:00 | NUR ---
Patient received from AM nurse. Vent settings at: #8 24 at [facility] - A/C 26, Fio2: 90% TV: 550, PEEP 8. Glucerna running at 25cc/hr. 0.45 NS running at 100cc/hr Sinus rhythm on the monitor. Temperature of 99.6. Lines intact and patent. Cooling blanket being used with patient. Will monitor and assess. Addendum: 10/04/20 at 2042 by KRISTOPHER CLAUDIO RN CORRECTION: PATIENT ON 50% Fio2
--- NOTE | 2020-10-04 23:18 | NUR ---
Patient repositioned, cleaned, suctioned, and oral care given. Patient comfortable in bed. Vital signs documented. Will monitor and assess.
[2020-10-05] VITALS (51 sets, daily range): BP systolic 84–151; BP diastolic 44–96
[2020-10-05] MEDS: INSULIN REGULAR, HUMAN 300 UNIT/3 ML VIAL SQ PRN ×4 (00:02→18:00)
[2020-10-05] MEDS: BLOOD SUGAR DIAGNOSTIC 1 EACH STRIP VI SCH ×4 (00:02→17:59)
[2020-10-05] MEDS: MICAFUNGIN SODIUM 100 MG in IV NORMAL SALINE 100 ML IV SCH (00:24)
[2020-10-05] MEDS: PROPOFOL 100 ML IV PRN ×6 (01:45→22:44)
--- NOTE | 2020-10-05 03:00 | NUR ---
Patient is afebrile (98.5).Cooling blanket set to monitor only.
--- NOTE | 2020-10-05 04:15 | NUR ---
Patient given full bed bath, cleaned, made comfortable. Oral care done. Applied new dressing and ointment to sacral wound. Patient tolerated well.
[2020-10-05 05:49] LABS: BASOPHILS % (AUTO) 0.1 % (0.0-2.0); EOSINOPHILS # (AUTO) 0.1 K/uL (0.0-0.7); EOSINOPHILS % (AUTO) 0.5 % (0.0-7.0); HEMATOCRIT 29.5 % (31.2-41.9); HEMOGLOBIN 9.7 g/dL (10.9-14.3); LYMPHOCYTES # (AUTO) 0.8 K/uL (20.0-40.0); LYMPHOCYTES % (AUTO) 4.8 % (20.5-51.5); MEAN CORPUSCULAR HEMOGLOBIN 31.8 uug (24.7-32.8); MEAN CORPUSCULAR HGB CONC 33 g/dL (32.3-35.6); MEAN CORPUSCULAR VOLUME 96.8 fL (75.5-95.3); MONOCYTES # (AUTO) 0.6 K/uL (2.0-10.0); MONOCYTES % (AUTO) 3.7 % (0.0-11.0); NEUTROPHILS # (AUTO) 14.3 K/uL (1.8-8.9); NEUTROPHILS % (AUTO) 90.9 % (38.5-71.5); PLATELET COUNT (AUTO) 156 K/uL (179-408); RED BLOOD CELL COUNT(AUTO) 3.05 MIL/uL (3.63-4.92); WHITE BLOOD COUNT (AUTO) 15.8 K/uL (3.8-11.8)
[2020-10-05 05:59] LABS: CREATININE 1.1 mg/dL (0.6-1.3); POTASSIUM 3.9 mmol/L (3.5-5.1)
[2020-10-05 06:05] LABS: MAGNESIUM 1.9 mg/dL (1.8-2.4); PHOSPHOROUS 2.7 mg/dL (2.5-4.9)
[2020-10-05] MEDS: MEROPENEM 1 G in IV NORMAL SALINE 100 ML IV SCH ×3 (06:10→22:34)
--- NOTE | 2020-10-05 07:11 | NUR ---
Report given to AM nurse. Vent #8 24 at the lip - A/C 26, Fio2: 90% TV: 550, PEEP 8. Glucerna off @ 0600. 0.45 NS running at 100cc/hr Sinus rhythm on the monitor. Temperature of 98.2, HR 86, BP: 108/57, Saturation @ 97%. Lines intact and patent. Patient hemodynamically stable. Will endorse to AM nurse.
[2020-10-05] MEDS: LEVOTHYROXINE SODIUM 100 MCG VIAL IV SCH (08:33)
[2020-10-05] MEDS: ASPIRIN EC 81 MG TABLET.DR PO SCH (08:33)
[2020-10-05] MEDS: PROTEIN SUPPLEMENT (PROSTAT) 30 ML LIQUID NG SCH ×3 (08:33→17:23)
[2020-10-05] MEDS: AMIODARONE HCL 200 MG TABLET PO SCH ×2 (08:33→21:56)
[2020-10-05] MEDS: CHOLECALCIFEROL 1,000 UNIT TABLET PO SCH (08:33)
[2020-10-05] MEDS: ENOXAPARIN SODIUM 100 MG/ML DISP.SYRIN SQ SCH ×2 (08:34→22:18)
[2020-10-05] MEDS: Z GUARD REMEDY PASTE 57 GM TUBE TOP SCH ×2 (08:35→21:58)
[2020-10-05 08:43] LABS: ABG BASE EXCESS -2.6 mmol/L; ABG HCO3 22.1 mmol/L; ABG PCO2 38.1 mmHg (35.0-45.0); ABG PH 7.382 (7.350-7.450); ABG PO2 71.1 mmHg (75.0-100.0); ABG SITE LEFT RADIAL; ABG TOTAL HEMOGLOBIN 9.7 G/dL (12.0-16.0); COHb 1.1 % (0.5-1.5); MetHb 0.2 % (0.0-1.5); O2Hb 92.9 % (94.0-97.0); VENT MODE VENT - PRVC; VT, ABG 550 mL
[2020-10-05] MEDS: IV 1/2NS 1000 ML 1,000 ML IV PRN ×2 (09:32→19:48)
[2020-10-05] MEDS: FAMOTIDINE. 20 MG/2 ML VIAL IV SCH ×2 (14:18→21:56)
[2020-10-05] MEDS: ACETAMINOPHEN 650 MG/20.3 ML LIQUID UDC GT PRN (16:33)
--- NOTE | 2020-10-05 19:05 | NUR ---
Received patient in bed orally intubated. ETT 8 to vent, AC 26, Vt 550, Fio2 50, PEEP 8. SAT 96-99%. JANELLE PICC clean and patent. CHELE midline clean and patent. Propofol running @40mcg/kg/min. No pressors. 1/2 NS @100mL/hr. NGT feed Glucerna running @25mL/hr with 5mL residual. Peter catheter clean and patent draining clear light yellow urine with great output. Flexi-seal ruptured with copious BM present. Patient remains on cooling mat with continuous rectal monitoring. current temperature 98.6.
--- NOTE | 2020-10-05 20:30 | NUR ---
Flexi-seal replaced due to damaged flush port. Patient cleaned, sacral wound cleaned and redressed, and all linens changed.
--- NOTE | 2020-10-05 21:00 | NUR ---
Spent some time adjusting the Barimax mattress. Was able to reduce the width of the mattress to 36" from 48" which was causing the sides of the mattress to bow upward creating a valley which the patient would be in, making it difficult to turn ad reposition her. With the new settings the barimax mattress is now functioning properly. The auto-turn function is now working properly, which will aid in healing the sacral wound.
[2020-10-06] VITALS (24 sets, daily range): BP systolic 94–152; BP diastolic 48–86
[2020-10-06] MEDS: BLOOD SUGAR DIAGNOSTIC 1 EACH STRIP VI SCH ×4 (00:52→18:01)
[2020-10-06] MEDS: INSULIN REGULAR, HUMAN 300 UNIT/3 ML VIAL SQ PRN ×4 (00:54→18:02)
[2020-10-06] MEDS: MICAFUNGIN SODIUM 100 MG in IV NORMAL SALINE 100 ML IV SCH (00:58)
[2020-10-06] MEDS: PROPOFOL 100 ML IV PRN ×6 (02:24→21:56)
[2020-10-06] MEDS ORDERED: PROPOFOL 100 ML ONE ×2 (03:58→06:33)
[2020-10-06] MEDS: MEROPENEM 1 G in IV NORMAL SALINE 100 ML IV SCH ×3 (06:36→21:55)
--- NOTE | 2020-10-06 07:15 | NUR ---
Received report from overnight caregiver nurse with ETT 8 to vent, AC 26, Vt 550, Fio2 50, PEEP 8. Right PICC clean and patent. Left upper arm midline intact. Propofol running @ 40mcg/kg/min. 1/2 NS @100mL/hr. NGTube in place, Peter draining. Flexi-seal in place. Patient remains on cooling mat with continuous rectal monitoring. current temperature 97.8F. Bed in low position, side rails up x2.
[2020-10-06] MEDS: PROTEIN SUPPLEMENT (PROSTAT) 30 ML LIQUID NG SCH ×3 (08:31→18:01)
[2020-10-06] MEDS: FAMOTIDINE. 20 MG/2 ML VIAL IV SCH ×2 (08:31→21:26)
[2020-10-06] MEDS: Z GUARD REMEDY PASTE 57 GM TUBE TOP SCH ×2 (08:32→21:27)
[2020-10-06] MEDS: AMIODARONE HCL 200 MG TABLET PO SCH ×2 (08:32→21:26)
[2020-10-06] MEDS: CHOLECALCIFEROL 1,000 UNIT TABLET PO SCH (08:32)
[2020-10-06] MEDS: ASPIRIN EC 81 MG TABLET.DR PO SCH (08:32)
[2020-10-06] MEDS: ENOXAPARIN SODIUM 100 MG/ML DISP.SYRIN SQ SCH ×2 (08:33→21:25)
[2020-10-06] MEDS: IV 1/2NS 1000 ML 1,000 ML IV PRN (08:57)
[2020-10-06] MEDS: LEVOTHYROXINE SODIUM 100 MCG VIAL IV SCH (09:02)
[2020-10-06 09:28] LABS: ABG BASE EXCESS -0.5 mmol/L; ABG HCO3 23.9 mmol/L; ABG PCO2 38.5 mmHg (35.0-45.0); ABG PH 7.411 (7.350-7.450); ABG PO2 69.2 mmHg (75.0-100.0); ABG SITE LEFT RADIAL; ABG TOTAL HEMOGLOBIN 10.5 G/dL (12.0-16.0); COHb 0.9 % (0.5-1.5); MetHb 0.1 % (0.0-1.5); O2Hb 92.7 % (94.0-97.0); VENT MODE VENT - A/C; VT, ABG 550 mL
[2020-10-06 09:41] LABS: MAGNESIUM 2.3 mg/dL (1.8-2.4)
[2020-10-06 09:47] LABS: BASOPHILS # (AUTO) 0.1 K/uL (0.0-8.0); BASOPHILS % (AUTO) 0.6 % (0.0-2.0); EOSINOPHILS # (AUTO) 0.1 K/uL (0.0-0.7); EOSINOPHILS % (AUTO) 0.6 % (0.0-7.0); HEMATOCRIT 32.7 % (31.2-41.9); HEMOGLOBIN 10.2 g/dL (10.9-14.3); LYMPHOCYTES # (AUTO) 0.8 K/uL (20.0-40.0); LYMPHOCYTES % (AUTO) 4.3 % (20.5-51.5); MEAN CORPUSCULAR HGB CONC 31 g/dL (32.3-35.6); MEAN CORPUSCULAR VOLUME 96.2 fL (75.5-95.3); MONOCYTES # (AUTO) 0.5 K/uL (2.0-10.0); MONOCYTES % (AUTO) 2.7 % (0.0-11.0); NEUTROPHILS % (AUTO) 91.8 % (38.5-71.5); PLATELET COUNT (AUTO) 191 K/uL (179-408); RED BLOOD CELL COUNT(AUTO) 3.41 MIL/uL (3.63-4.92); WHITE BLOOD COUNT (AUTO) 18.5 K/uL (3.8-11.8)
--- NOTE | 2020-10-06 19:48 | NUR ---
Patient continues to be on Shanda vent, intubated saturation 100% on 50% fio2, sinus rhythm on the monitor, new picc line inserted in left upper arm, right arm picc to be removed and tip cultured. Peter intact and draining appropriately, flexiseal in place, dressing changed on coccyx, Bed in low position, side rails upx2.
[2020-10-06] MEDS: INSULIN GLARGINE,HUM 300 UNITS/3 ML CARTRIDGE SQ SCH (21:40)
--- NOTE | 2020-10-06 23:00 | NUR ---
Removed right upper arm PICC; tip Cx sent. New IV tubings: to new left upper arm PICC.
[2020-10-07] VITALS (24 sets, daily range): BP systolic 82–159; BP diastolic 38–72
[2020-10-07] MEDS: INSULIN REGULAR, HUMAN 300 UNIT/3 ML VIAL SQ PRN ×4 (00:12→18:31)
[2020-10-07] MEDS: BLOOD SUGAR DIAGNOSTIC 1 EACH STRIP VI SCH ×4 (00:16→18:28)
[2020-10-07] MEDS: MICAFUNGIN SODIUM 100 MG in IV NORMAL SALINE 100 ML IV SCH (00:21)
[2020-10-07] MEDS: PROPOFOL 100 ML IV PRN ×7 (00:31→22:56)
[2020-10-07] MEDS: IV 1/2NS 1000 ML 1,000 ML IV PRN (04:17)
[2020-10-07 05:17] LABS: BASOPHILS # (AUTO) 0.1 K/uL (0.0-8.0); BASOPHILS % (AUTO) 0.6 % (0.0-2.0); EOSINOPHILS # (AUTO) 0.2 K/uL (0.0-0.7); EOSINOPHILS % (AUTO) 1.3 % (0.0-7.0); HEMATOCRIT 32.7 % (31.2-41.9); HEMOGLOBIN 10.2 g/dL (10.9-14.3); LYMPHOCYTES # (AUTO) 0.7 K/uL (20.0-40.0); LYMPHOCYTES % (AUTO) 5.1 % (20.5-51.5); MEAN CORPUSCULAR HEMOGLOBIN 29.8 uug (24.7-32.8); MEAN CORPUSCULAR HGB CONC 31 g/dL (32.3-35.6); MEAN CORPUSCULAR VOLUME 95.6 fL (75.5-95.3); MONOCYTES # (AUTO) 0.6 K/uL (2.0-10.0); MONOCYTES % (AUTO) 4.2 % (0.0-11.0); NEUTROPHILS # (AUTO) 11.7 K/uL (1.8-8.9); NEUTROPHILS % (AUTO) 88.8 % (38.5-71.5); PLATELET COUNT (AUTO) 192 K/uL (179-408); RED BLOOD CELL COUNT(AUTO) 3.42 MIL/uL (3.63-4.92); WHITE BLOOD COUNT (AUTO) 13.2 K/uL (3.8-11.8)
[2020-10-07 05:41] LABS: MAGNESIUM 1.8 mg/dL (1.8-2.4); PHOSPHOROUS 2.8 mg/dL (2.5-4.9); POTASSIUM 3.9 mmol/L (3.5-5.1)
[2020-10-07] MEDS ORDERED: LEVOTHYROXINE SODIUM 100 MCG TABLET NG SCH (06:00)
[2020-10-07] MEDS: MEROPENEM 1 G in IV NORMAL SALINE 100 ML IV SCH ×3 (06:24→21:42)
[2020-10-07] MEDS: LEVOTHYROXINE SODIUM 125 MCG TABLET NG SCH (06:27)
[2020-10-07] MEDS: FAMOTIDINE. 20 MG/2 ML VIAL IV SCH ×2 (08:35→20:43)
[2020-10-07] MEDS: PROTEIN SUPPLEMENT (PROSTAT) 30 ML LIQUID NG SCH ×3 (08:35→18:05)
[2020-10-07] MEDS: AMIODARONE HCL 200 MG TABLET PO SCH ×2 (08:36→20:43)
[2020-10-07] MEDS: ASPIRIN EC 81 MG TABLET.DR PO SCH (08:36)
[2020-10-07] MEDS: Z GUARD REMEDY PASTE 57 GM TUBE TOP SCH ×2 (08:37→20:44)
[2020-10-07] MEDS: ENOXAPARIN SODIUM 100 MG/ML DISP.SYRIN SQ SCH ×2 (08:38→20:39)
[2020-10-07] MEDS: CHOLECALCIFEROL 1,000 UNIT TABLET PO SCH (08:40)
[2020-10-07 09:01] LABS: ABG BASE EXCESS -0.9 mmol/L; ABG HCO3 23.4 mmol/L; ABG PCO2 37.2 mmHg (35.0-45.0); ABG PH 7.416 (7.350-7.450); ABG PO2 80.8 mmHg (75.0-100.0); ABG SITE LEFT RADIAL; ABG TOTAL HEMOGLOBIN 10.5 G/dL (12.0-16.0); COHb 0.8 % (0.5-1.5); MetHb 0.1 % (0.0-1.5); O2Hb 94.4 % (94.0-97.0); VENT MODE Press. Reg. Vol. Con; VT, ABG 550 mL
[2020-10-07] MEDS: GLUCERNA 1.2 1000ML LIQUID GT PRN (11:14)
--- NOTE | 2020-10-07 12:12 | NUR ---
PT RECEIVED ON VENT WITH 8 ETT SECURED AT 24 CM BY LIP LINE. VENT SETTINGS PRVC AC26/550/50%/+8 PEEP. PT APPEARS COMFORTABLE TOLERATING CURRENT VENT SETTINGS FINE WITH NO DISTRESS. WILL CONTINUE TO MONITOR.
--- NOTE | 2020-10-07 12:16 | NUR ---
PEEP LOWERED DOWN TO +5 WITH SPO2 MAINTAINING AT 100%
--- NOTE | 2020-10-07 18:21 | NUR ---
PT TOLERATED CURRENT VENT SETTINGS FINE WITHOUT ANY EPISODE OF RESPIRATORY DISTRESS. PT VENT SETTINGS IS NOW AC26/550/50%/+5 PEEP. PT HAD MODERATE AMOUNT OF SEMI THICK BLOOD TINGED SECRETIONS. ORAL CARE WAS DONE IN THE BEGINNING OF THE SHIFT. THE HEAD OF THE BED WAS MAINTAINED ABOVE 35 DEGREE ANGLE THROUGHOUT SHIFT.
[2020-10-07] MEDS: INSULIN GLARGINE,HUM 300 UNITS/3 ML CARTRIDGE SQ SCH (20:37)
[2020-10-08] VITALS (21 sets, daily range): BP systolic 80–157; BP diastolic 42–75
[2020-10-08] MEDS: BLOOD SUGAR DIAGNOSTIC 1 EACH STRIP VI SCH ×4 (00:13→17:26)
[2020-10-08] MEDS: INSULIN REGULAR, HUMAN 300 UNIT/3 ML VIAL SQ PRN ×4 (00:21→17:32)
[2020-10-08] MEDS: MICAFUNGIN SODIUM 100 MG in IV NORMAL SALINE 100 ML IV SCH (00:22)
[2020-10-08] MEDS: IV 1/2NS 1000 ML 1,000 ML IV PRN (00:49)
[2020-10-08] MEDS: PROPOFOL 100 ML IV PRN ×6 (02:39→21:01)
[2020-10-08] MEDS: MEROPENEM 1 G in IV NORMAL SALINE 100 ML IV SCH ×3 (06:14→21:44)
[2020-10-08 06:22] LABS: CREATININE 0.8 mg/dL (0.6-1.3); MAGNESIUM 1.8 mg/dL (1.8-2.4); POTASSIUM 3.7 mmol/L (3.5-5.1)
[2020-10-08] MEDS: LEVOTHYROXINE SODIUM 125 MCG TABLET NG SCH (06:23)
[2020-10-08 06:26] LABS: BASOPHILS # (AUTO) 0.1 K/uL (0.0-8.0); BASOPHILS % (AUTO) 0.7 % (0.0-2.0); EOSINOPHILS # (AUTO) 0.2 K/uL (0.0-0.7); EOSINOPHILS % (AUTO) 1.3 % (0.0-7.0); HEMATOCRIT 32.4 % (31.2-41.9); HEMOGLOBIN 10.1 g/dL (10.9-14.3); LYMPHOCYTES % (AUTO) 7.1 % (20.5-51.5); MEAN CORPUSCULAR HEMOGLOBIN 29.7 uug (24.7-32.8); MEAN CORPUSCULAR HGB CONC 31 g/dL (32.3-35.6); MEAN CORPUSCULAR VOLUME 95.4 fL (75.5-95.3); MONOCYTES # (AUTO) 0.7 K/uL (2.0-10.0); MONOCYTES % (AUTO) 5.1 % (0.0-11.0); NEUTROPHILS # (AUTO) 11.8 K/uL (1.8-8.9); NEUTROPHILS % (AUTO) 85.8 % (38.5-71.5); PLATELET COUNT (AUTO) 215 K/uL (179-408); WHITE BLOOD COUNT (AUTO) 13.8 K/uL (3.8-11.8)
[2020-10-08] MEDS: CHOLECALCIFEROL 1,000 UNIT TABLET PO SCH (08:14)
[2020-10-08] MEDS: FAMOTIDINE. 20 MG/2 ML VIAL IV SCH ×2 (08:15→20:54)
[2020-10-08] MEDS: AMIODARONE HCL 200 MG TABLET PO SCH ×2 (08:15→20:54)
[2020-10-08] MEDS: Z GUARD REMEDY PASTE 57 GM TUBE TOP SCH ×2 (08:16→20:56)
[2020-10-08] MEDS: PROTEIN SUPPLEMENT (PROSTAT) 30 ML LIQUID NG SCH ×3 (08:16→16:47)
[2020-10-08] MEDS: ASPIRIN EC 81 MG TABLET.DR PO SCH (08:16)
[2020-10-08] MEDS: ENOXAPARIN SODIUM 100 MG/ML DISP.SYRIN SQ SCH ×2 (08:19→21:15)
[2020-10-08 09:02] LABS: ABG BASE EXCESS -1.5 mmol/L; ABG HCO3 22.5 mmol/L; ABG PCO2 36.1 mmHg (35.0-45.0); ABG PH 7.413 (7.350-7.450); ABG PO2 65.4 mmHg (75.0-100.0); ABG SITE LEFT RADIAL; ABG TOTAL HEMOGLOBIN 15.1 G/dL (12.0-16.0); COHb 1.5 % (0.5-1.5); O2Hb 90.4 % (94.0-97.0); VENT MODE VENT - A/C; VT, ABG 550 mL
[2020-10-08] MEDS: GLUCERNA 1.2 1000ML LIQUID GT PRN (10:47)
[2020-10-08] MEDS: LOPERAMIDE HCL 2 MG CAPSULE NG PRN (15:00)
[2020-10-08] MEDS: ACETAMINOPHEN 650 MG/20.3 ML LIQUID UDC GT PRN (16:45)
--- NOTE | 2020-10-08 19:00 | NUR ---
Received patient in bed orally intubated. ETT to vent size 8 @24cm at the lip. Vent settings AC 26, Vt 550, Fio2 50%, PEEP 5. Patient is well sedated with propofol @40mcg/kg/min. ETT suctioned with minimal secretions, no signs of distress, however patient is overbreathing the ventilator at a rate of 30. Spo2 @100%. CHELE triple lumen PICC all lines patent and dressing clean. Peter present and well draining clear yellow urine. Flexiseal present well sealed draining liquid brown stools, flushed and patent. Patient remains on cooling blanket with continuous rectal temperature monitoring. Current temp 99.2. Patient on [place] bed. Mattress currently functioning properly and set to auto turn. NGT present running glucerna @25ml/hr, 5ml residual.
[2020-10-08] MEDS: INSULIN GLARGINE,HUM 300 UNITS/3 ML CARTRIDGE SQ SCH (21:15)
[2020-10-09] VITALS (24 sets, daily range): BP systolic 96–161; BP diastolic 52–74
[2020-10-09] MEDS: BLOOD SUGAR DIAGNOSTIC 1 EACH STRIP VI SCH ×5 (00:13→23:47)
[2020-10-09] MEDS: INSULIN REGULAR, HUMAN 300 UNIT/3 ML VIAL SQ PRN ×4 (00:14→23:48)
[2020-10-09] MEDS: MICAFUNGIN SODIUM 100 MG in IV NORMAL SALINE 100 ML IV SCH (00:23)
[2020-10-09] MEDS: PROPOFOL 100 ML IV PRN ×7 (00:43→21:38)
[2020-10-09] MEDS: IV 1/2NS 1000 ML 1,000 ML IV PRN (02:27)
[2020-10-09] MEDS: LOPERAMIDE HCL 2 MG CAPSULE NG PRN ×2 (05:13→21:18)
[2020-10-09 05:26] LABS: BASOPHILS % (AUTO) 0.1 % (0.0-2.0); EOSINOPHILS # (AUTO) 0.2 K/uL (0.0-0.7); EOSINOPHILS % (AUTO) 1.7 % (0.0-7.0); HEMATOCRIT 31.7 % (31.2-41.9); HEMOGLOBIN 10.3 g/dL (10.9-14.3); LYMPHOCYTES % (AUTO) 8.8 % (20.5-51.5); MEAN CORPUSCULAR HEMOGLOBIN 31.2 uug (24.7-32.8); MEAN CORPUSCULAR HGB CONC 32 g/dL (32.3-35.6); MEAN CORPUSCULAR VOLUME 96.5 fL (75.5-95.3); MONOCYTES # (AUTO) 0.7 K/uL (2.0-10.0); MONOCYTES % (AUTO) 5.8 % (0.0-11.0); NEUTROPHILS # (AUTO) 9.5 K/uL (1.8-8.9); NEUTROPHILS % (AUTO) 83.6 % (38.5-71.5); PLATELET COUNT (AUTO) 199 K/uL (179-408); RED BLOOD CELL COUNT(AUTO) 3.29 MIL/uL (3.63-4.92); WHITE BLOOD COUNT (AUTO) 11.3 K/uL (3.8-11.8)
[2020-10-09 05:38] LABS: CREATININE 0.9 mg/dL (0.6-1.3); MAGNESIUM 1.6 mg/dL (1.8-2.4); PHOSPHOROUS 3.3 mg/dL (2.5-4.9); POTASSIUM 3.6 mmol/L (3.5-5.1)
[2020-10-09] MEDS: MEROPENEM 1 G in IV NORMAL SALINE 100 ML IV SCH ×3 (05:58→22:20)
[2020-10-09] MEDS: LEVOTHYROXINE SODIUM 125 MCG TABLET NG SCH (05:58)
[2020-10-09] MEDS: PROTEIN SUPPLEMENT (PROSTAT) 30 ML LIQUID NG SCH ×3 (07:49→16:55)
[2020-10-09] MEDS: FAMOTIDINE. 20 MG/2 ML VIAL IV SCH (08:10)
[2020-10-09] MEDS: ASPIRIN EC 81 MG TABLET.DR PO SCH (08:11)
[2020-10-09] MEDS: CHOLECALCIFEROL 1,000 UNIT TABLET PO SCH (08:11)
[2020-10-09] MEDS: AMIODARONE HCL 200 MG TABLET PO SCH ×2 (08:12→20:13)
[2020-10-09] MEDS: ENOXAPARIN SODIUM 100 MG/ML DISP.SYRIN SQ SCH ×2 (08:12→20:14)
[2020-10-09] MEDS: Z GUARD REMEDY PASTE 57 GM TUBE TOP SCH ×2 (08:13→20:15)
[2020-10-09 09:20] LABS: ABG PCO2 35.9 mmHg (35.0-45.0); ABG PH 7.425 (7.350-7.450); ABG SITE RIGHT RADIAL; ABG TOTAL HEMOGLOBIN 10.3 G/dL (12.0-16.0); COHb 1.1 % (0.5-1.5); MetHb 0.1 % (0.0-1.5); O2Hb 90.8 % (94.0-97.0); VENT MODE VENT - A/C; VT, ABG 550 mL
[2020-10-09] MEDS: GLUCERNA 1.2 1000ML LIQUID GT PRN ×2 (09:24→18:21)
[2020-10-09] MEDS: MAGNESIUM SULFATE/D5W 100 ML IV SCH ×3 (09:43→10:48)
[2020-10-09] MEDS ORDERED: POTASSIUM CHLORIDE 20 MEQ POWDER PACKET NG ONE (10:30)
--- NOTE | 2020-10-09 10:33 | NUR ---
Patient seen by crm marketing manager Dr. Lauren orders to stop IV fluids and continue with care plan received.
[2020-10-09] MEDS: ACETAMINOPHEN 650 MG/20.3 ML LIQUID UDC GT PRN (11:14)
--- NOTE | 2020-10-09 12:17 | NUR ---
Attending Kimo Gonzalez in the unit to see and examine pt. full report given orders to continue with care plan received.
--- NOTE | 2020-10-09 14:30 | NUR ---
Pulmonary services Dr. Lama in the unit to see and examine pt. report given.
[2020-10-09] MEDS: FAMOTIDINE 20 MG TABLET GT SCH (20:13)
[2020-10-09] MEDS: INSULIN GLARGINE,HUM 300 UNITS/3 ML CARTRIDGE SQ SCH (20:14)
[2020-10-09] MEDS: ACIDOPHILUS/BULGARICUS CHEW TAB GT SCH (21:18)
[2020-10-10] VITALS (24 sets, daily range): BP systolic 108–149; BP diastolic 53–76
[2020-10-10] MEDS: MICAFUNGIN SODIUM 100 MG in IV NORMAL SALINE 100 ML IV SCH (00:21)
[2020-10-10] MEDS: PROPOFOL 100 ML IV PRN ×7 (01:13→22:25)
[2020-10-10] MEDS: GLUCERNA 1.2 1000ML LIQUID GT PRN (02:10)
[2020-10-10 05:33] LABS: BASOPHILS # (AUTO) 0.1 K/uL (0.0-8.0); BASOPHILS % (AUTO) 1.2 % (0.0-2.0); EOSINOPHILS # (AUTO) 0.2 K/uL (0.0-0.7); HEMOGLOBIN 10.6 g/dL (10.9-14.3); LYMPHOCYTES % (AUTO) 9.7 % (20.5-51.5); MEAN CORPUSCULAR HEMOGLOBIN 30.9 uug (24.7-32.8); MEAN CORPUSCULAR HGB CONC 32 g/dL (32.3-35.6); MEAN CORPUSCULAR VOLUME 95.9 fL (75.5-95.3); MONOCYTES # (AUTO) 0.7 K/uL (2.0-10.0); MONOCYTES % (AUTO) 6.1 % (0.0-11.0); NEUTROPHILS # (AUTO) 8.7 K/uL (1.8-8.9); PLATELET COUNT (AUTO) 217 K/uL (179-408); RED BLOOD CELL COUNT(AUTO) 3.44 MIL/uL (3.63-4.92); WHITE BLOOD COUNT (AUTO) 10.7 K/uL (3.8-11.8)
[2020-10-10 05:40] LABS: CREATININE 0.8 mg/dL (0.6-1.3); POTASSIUM 3.8 mmol/L (3.5-5.1)
[2020-10-10 05:49] LABS: MAGNESIUM 1.7 mg/dL (1.8-2.4)
[2020-10-10] MEDS: MEROPENEM 1 G in IV NORMAL SALINE 100 ML IV SCH ×3 (06:04→20:54)
[2020-10-10] MEDS: LEVOTHYROXINE SODIUM 125 MCG TABLET NG SCH (06:04)
[2020-10-10] MEDS: ACIDOPHILUS/BULGARICUS CHEW TAB GT SCH ×3 (06:04→20:53)
[2020-10-10] MEDS: BLOOD SUGAR DIAGNOSTIC 1 EACH STRIP VI SCH ×3 (06:05→18:09)
[2020-10-10] MEDS: INSULIN REGULAR, HUMAN 300 UNIT/3 ML VIAL SQ PRN ×3 (06:06→18:40)
[2020-10-10] MEDS: CHOLECALCIFEROL 1,000 UNIT TABLET PO SCH (08:37)
[2020-10-10] MEDS: AMIODARONE HCL 200 MG TABLET PO SCH ×2 (08:37→20:29)
[2020-10-10] MEDS: FAMOTIDINE 20 MG TABLET GT SCH ×2 (08:37→20:28)
[2020-10-10] MEDS: ASPIRIN EC 81 MG TABLET.DR PO SCH (08:37)
[2020-10-10] MEDS: ENOXAPARIN SODIUM 100 MG/ML DISP.SYRIN SQ SCH ×2 (08:38→20:35)
[2020-10-10] MEDS: Z GUARD REMEDY PASTE 57 GM TUBE TOP SCH ×2 (08:39→20:36)
[2020-10-10] MEDS: PROTEIN SUPPLEMENT (PROSTAT) 30 ML LIQUID NG SCH ×3 (08:40→17:19)
[2020-10-10 09:03] LABS: ABG BASE EXCESS -2.8 mmol/L; ABG HCO3 20.7 mmol/L; ABG PCO2 31.6 mmHg (35.0-45.0); ABG PH 7.434 (7.350-7.450); ABG PO2 72.5 mmHg (75.0-100.0); ABG SITE RIGHT RADIAL; ABG TOTAL HEMOGLOBIN 10.6 G/dL (12.0-16.0); COHb 1.1 % (0.5-1.5); MetHb 0.1 % (0.0-1.5); O2Hb 92.4 % (94.0-97.0); VENT MODE VENT - A/C; VT, ABG 550 mL
[2020-10-10] MEDS: MAGNESIUM SULFATE/D5W 100 ML IV SCH ×2 (14:07→15:08)
[2020-10-10] MEDS ORDERED: ALBUMIN HUMAN 25% 25 GM in PREMIXED 1 EACH IV SCH (15:00)
[2020-10-10] MEDS: ALBUMIN HUMAN 25% 25 GM in PREMIXED 1 EACH IV SCH ×2 (16:22→20:28)
[2020-10-10] MEDS ORDERED: FUROSEMIDE 40 MG/4 ML VIAL IV ONE (17:00)
[2020-10-10] MEDS: IV NORMAL SALINE 250 ML IV PRN (19:00)
[2020-10-10] MEDS ORDERED: ALBUMIN HUMAN 25% 100 ML ONE (20:28)
--- NOTE | 2020-10-10 20:30 | NUR ---
note to pharmacy: duplicate / plasmanate
[2020-10-10] MEDS: INSULIN GLARGINE,HUM 300 UNITS/3 ML CARTRIDGE SQ SCH (20:35)
[2020-10-11] VITALS (23 sets, daily range): BP systolic 84–151; BP diastolic 53–76
[2020-10-11] MEDS: BLOOD SUGAR DIAGNOSTIC 1 EACH STRIP VI SCH ×5 (00:05→23:55)
[2020-10-11] MEDS: INSULIN REGULAR, HUMAN 300 UNIT/3 ML VIAL SQ PRN ×4 (00:07→18:01)
[2020-10-11] MEDS: MICAFUNGIN SODIUM 100 MG in IV NORMAL SALINE 100 ML IV SCH (00:50)
[2020-10-11] MEDS: PROPOFOL 100 ML IV PRN ×6 (01:50→22:56)
[2020-10-11] MEDS: ALBUMIN HUMAN 25% 25 GM in PREMIXED 1 EACH IV SCH ×2 (03:02→08:21)
[2020-10-11] MEDS: IV NORMAL SALINE 250 ML IV PRN (03:05)
--- NOTE | 2020-10-11 05:00 | NUR ---
Episode possibly: torsades de pointes With Heart rate 174; spontaneously corrected. Contacted Lance Schaeffer NP Addendum: 10/14/20 at 2053 by SALBADOR SAGE RN Error wrong patient.
[2020-10-11] MEDS: MEROPENEM 1 G in IV NORMAL SALINE 100 ML IV SCH ×3 (05:09→21:47)
[2020-10-11] MEDS: LEVOTHYROXINE SODIUM 125 MCG TABLET NG SCH (05:10)
[2020-10-11] MEDS: ACIDOPHILUS/BULGARICUS CHEW TAB GT SCH ×3 (05:10→21:47)
[2020-10-11 05:22] LABS: BASOPHILS # (AUTO) 0.1 K/uL (0.0-8.0); BASOPHILS % (AUTO) 1.2 % (0.0-2.0); EOSINOPHILS # (AUTO) 0.2 K/uL (0.0-0.7); EOSINOPHILS % (AUTO) 3.1 % (0.0-7.0); HEMATOCRIT 28.7 % (31.2-41.9); HEMOGLOBIN 9.2 g/dL (10.9-14.3); LYMPHOCYTES # (AUTO) 0.9 K/uL (20.0-40.0); LYMPHOCYTES % (AUTO) 12.2 % (20.5-51.5); MEAN CORPUSCULAR HEMOGLOBIN 30.9 uug (24.7-32.8); MEAN CORPUSCULAR HGB CONC 32 g/dL (32.3-35.6); MEAN CORPUSCULAR VOLUME 96.5 fL (75.5-95.3); MONOCYTES # (AUTO) 0.5 K/uL (2.0-10.0); MONOCYTES % (AUTO) 6.2 % (0.0-11.0); NEUTROPHILS # (AUTO) 5.8 K/uL (1.8-8.9); NEUTROPHILS % (AUTO) 77.3 % (38.5-71.5); PLATELET COUNT (AUTO) 202 K/uL (179-408); RED BLOOD CELL COUNT(AUTO) 2.97 MIL/uL (3.63-4.92); WHITE BLOOD COUNT (AUTO) 7.6 K/uL (3.8-11.8)
[2020-10-11 05:38] LABS: CREATININE 0.8 mg/dL (0.6-1.3); MAGNESIUM 1.7 mg/dL (1.8-2.4); POTASSIUM 3.6 mmol/L (3.5-5.1)
--- NOTE | 2020-10-11 07:20 | NUR ---
Received report from maintenance mechanic 2nd shift nurse, patient in bed on susana vent, intubated with ETT, NG tube in place/clamped, gallego draining, rectal tube in place, barimax bed on continuous turning every 15 minutes. Sinus rhythm on the monitor, hemodynamically stable. Patient is on propofol 40mcg/kg/min. Bed in low position, side rails up x2.
[2020-10-11] MEDS: PROTEIN SUPPLEMENT (PROSTAT) 30 ML LIQUID PO SCH ×3 (08:00→17:50)
[2020-10-11] MEDS: AMIODARONE HCL 200 MG TABLET PO SCH ×2 (08:16→20:05)
[2020-10-11] MEDS: CHOLECALCIFEROL 1,000 UNIT TABLET PO SCH (08:16)
[2020-10-11] MEDS: FAMOTIDINE 20 MG TABLET GT SCH ×2 (08:16→20:05)
[2020-10-11] MEDS: ASPIRIN EC 81 MG TABLET.DR PO SCH (08:17)
[2020-10-11] MEDS: ENOXAPARIN SODIUM 100 MG/ML DISP.SYRIN SQ SCH ×2 (08:18→20:06)
[2020-10-11] MEDS: PROTEIN SUPPLEMENT (PROSTAT) 30 ML LIQUID NG SCH (08:18)
[2020-10-11] MEDS: Z GUARD REMEDY PASTE 57 GM TUBE TOP SCH ×2 (08:18→20:07)
[2020-10-11] MEDS ORDERED: POTASSIUM CHLORIDE 20 MEQ POWDER PACKET PO ONE (08:45)
[2020-10-11] MEDS ORDERED: FUROSEMIDE 40 MG/4 ML VIAL IV ONE (08:45)
[2020-10-11] MEDS: MAGNESIUM SULFATE/D5W 100 ML IV SCH ×3 (09:46→11:14)
[2020-10-11 09:52] LABS: ABG BASE EXCESS -0.2 mmol/L; ABG HCO3 23.6 mmol/L; ABG PCO2 35.4 mmHg (35.0-45.0); ABG PH 7.442 (7.350-7.450); ABG SITE RIGHT RADIAL; ABG TOTAL HEMOGLOBIN 9.6 G/dL (12.0-16.0); COHb 1.1 % (0.5-1.5); MetHb 0.2 % (0.0-1.5); O2Hb 90.1 % (94.0-97.0); VENT MODE VENT - A/C; VT, ABG 550 mL
--- NOTE | 2020-10-11 15:30 | NUR ---
Patient bathed and wound dressing changed. Bleeding noted at site, and slough. Wound consult will be requested.
--- NOTE | 2020-10-11 18:27 | NUR ---
Patient continues to be in bed on susana vent, intubated with ETT, NG tube in place with tube feeding 25ml/hr, gallego draining, rectal tube in place, barimax bed on continuous turning every 15 minutes. Sinus rhythm on the monitor, hemodynamically stable. Patient is on propofol 40mcg/kg/min. Bed in low position, side rails up x2. Notified Infectious disease that patient had positive cultures on catheter tip. No new orders at this time.
--- NOTE | 2020-10-11 19:00 | NUR ---
Received report from AM nurse, patient in bed on susana vent, intubated with ETT, NG tube in place, gallego draining, rectal tube in place, barimax bed on continuous turning [id number], lines patent. Sinus rhythm on the monitor & hemodynamically stable. Patient is on propofol 40mcg/kg/min. Bed in low position, side rails up x2, bed in locked position. Will monitor and assess.
[2020-10-11] MEDS: INSULIN GLARGINE,HUM 300 UNITS/3 ML CARTRIDGE SQ SCH (20:06)
[2020-10-11] MEDS: MORPHINE SULFATE 2 MG/1 ML DISP.SYRIN IV PRN (22:19)
--- NOTE | 2020-10-11 22:51 | NUR ---
Patient had brief episode of increased Tachypnea. Respirations maintained in the low 40s - RT called. Diprivan drip increased to 50mcg/kg/min. Saturations at 95% - TVs WNLs. Will monitor and assess.
[2020-10-11] MEDS: LORAZEPAM 2 MG/1 ML VIAL IV PRN (23:54)
[2020-10-12] VITALS (24 sets, daily range): BP systolic 82–129; BP diastolic 42–74
[2020-10-12] MEDS: MICAFUNGIN SODIUM 100 MG in IV NORMAL SALINE 100 ML IV SCH (00:21)
[2020-10-12] MEDS: PROPOFOL 100 ML IV PRN ×7 (00:45→19:59)
--- NOTE | 2020-10-12 02:07 | NUR ---
Patient calm. Possibly becoming tolerant to Diprivan -- Will endorse to AM shift to zane into possible switch to Levophed.
[2020-10-12] MEDS: ACIDOPHILUS/BULGARICUS CHEW TAB GT SCH ×3 (05:30→21:50)
[2020-10-12] MEDS: LEVOTHYROXINE SODIUM 125 MCG TABLET NG SCH (05:31)
[2020-10-12] MEDS: MEROPENEM 1 G in IV NORMAL SALINE 100 ML IV SCH ×3 (05:32→22:05)
[2020-10-12] MEDS: BLOOD SUGAR DIAGNOSTIC 1 EACH STRIP VI SCH ×3 (05:44→18:48)
[2020-10-12] MEDS: INSULIN REGULAR, HUMAN 300 UNIT/3 ML VIAL SQ PRN ×2 (05:59→18:49)
[2020-10-12 07:22] LABS: BASOPHILS % (AUTO) 0.3 % (0.0-2.0); EOSINOPHILS # (AUTO) 0.1 K/uL (0.0-0.7); EOSINOPHILS % (AUTO) 1.7 % (0.0-7.0); HEMATOCRIT 28.7 % (31.2-41.9); HEMOGLOBIN 9.6 g/dL (10.9-14.3); LYMPHOCYTES # (AUTO) 0.8 K/uL (20.0-40.0); LYMPHOCYTES % (AUTO) 10.2 % (20.5-51.5); MEAN CORPUSCULAR HEMOGLOBIN 32.2 uug (24.7-32.8); MEAN CORPUSCULAR HGB CONC 33 g/dL (32.3-35.6); MEAN CORPUSCULAR VOLUME 96.6 fL (75.5-95.3); MONOCYTES # (AUTO) 0.4 K/uL (2.0-10.0); MONOCYTES % (AUTO) 5.2 % (0.0-11.0); NEUTROPHILS # (AUTO) 6.8 K/uL (1.8-8.9); NEUTROPHILS % (AUTO) 82.6 % (38.5-71.5); PLATELET COUNT (AUTO) 189 K/uL (179-408); RED BLOOD CELL COUNT(AUTO) 2.97 MIL/uL (3.63-4.92); WHITE BLOOD COUNT (AUTO) 8.2 K/uL (3.8-11.8)
--- NOTE | 2020-10-12 07:23 | NUR ---
Patient handed off to AM nurse. Hemodynamically stable. Safety measures in place. Vent settings as documented by RT. Will endorse to AM nurse.
[2020-10-12 07:30] LABS: CREATININE 0.7 mg/dL (0.6-1.3); MAGNESIUM 1.8 mg/dL (1.8-2.4); PHOSPHOROUS 3.4 mg/dL (2.5-4.9); POTASSIUM 3.6 mmol/L (3.5-5.1)
[2020-10-12] MEDS: CHOLECALCIFEROL 1,000 UNIT TABLET PO SCH (08:57)
[2020-10-12] MEDS: FAMOTIDINE 20 MG TABLET GT SCH ×2 (08:57→20:05)
[2020-10-12] MEDS: ASPIRIN EC 81 MG TABLET.DR PO SCH (08:58)
[2020-10-12] MEDS: AMIODARONE HCL 200 MG TABLET PO SCH ×2 (08:58→20:05)
[2020-10-12] MEDS: PROTEIN SUPPLEMENT (PROSTAT) 30 ML LIQUID PO SCH ×3 (08:58→16:39)
[2020-10-12] MEDS: Z GUARD REMEDY PASTE 57 GM TUBE TOP SCH ×2 (08:59→20:08)
[2020-10-12] MEDS: ENOXAPARIN SODIUM 100 MG/ML DISP.SYRIN SQ SCH ×2 (13:07→20:07)
[2020-10-12] MEDS ORDERED: POTASSIUM CHLORIDE 20 MEQ POWDER PACKET NG ONE (15:30)
[2020-10-12] MEDS: MAGNESIUM SULFATE/D5W 100 ML IV SCH ×2 (15:46→16:39)
[2020-10-12] MEDS: INSULIN GLARGINE,HUM 300 UNITS/3 ML CARTRIDGE SQ SCH (20:07)
--- NOTE | 2020-10-12 20:58 | NUR ---
Received report from AM nurse, patient in bed on vent, intubated with ETT, NG tube in place, gallego draining, rectal tube in place, barimax bed on continuous turning [id number], lines patent. Sinus rhythm on the monitor. Patient is on propofol 40mcg/kg/min. Bed in low position, side rails up x2, bed in locked position. Safety measures in place - will continue plan of care. Will monitor and assess.
[2020-10-12] MEDS ORDERED: ENOXAPARIN SODIUM 100 MG/ML DISP.SYRIN SQ SCH (21:00)
[2020-10-13] VITALS (20 sets, daily range): BP systolic 90–164; BP diastolic 50–84
[2020-10-13] MEDS: INSULIN REGULAR, HUMAN 300 UNIT/3 ML VIAL SQ PRN ×3 (00:01→13:28)
[2020-10-13] MEDS: BLOOD SUGAR DIAGNOSTIC 1 EACH STRIP VI SCH ×3 (00:09→13:27)
[2020-10-13] MEDS: PROPOFOL 100 ML IV PRN ×7 (00:15→21:43)
[2020-10-13] MEDS: MICAFUNGIN SODIUM 100 MG in IV NORMAL SALINE 100 ML IV SCH (00:37)
--- NOTE | 2020-10-13 02:27 | NUR ---
Patient comfortable in bed. Afebrile. VSS -- Tachypneic. Safety measures in place. Plan of care in progress.
[2020-10-13 05:14] LABS: BASOPHILS # (AUTO) 0.3 K/uL (0.0-8.0); BASOPHILS % (AUTO) 3.4 % (0.0-2.0); EOSINOPHILS # (AUTO) 0.3 K/uL (0.0-0.7); EOSINOPHILS % (AUTO) 3.7 % (0.0-7.0); HEMATOCRIT 31.9 % (31.2-41.9); HEMOGLOBIN 10.6 g/dL (10.9-14.3); LYMPHOCYTES # (AUTO) 1.1 K/uL (20.0-40.0); LYMPHOCYTES % (AUTO) 13.7 % (20.5-51.5); MEAN CORPUSCULAR HEMOGLOBIN 31.7 uug (24.7-32.8); MEAN CORPUSCULAR HGB CONC 33 g/dL (32.3-35.6); MEAN CORPUSCULAR VOLUME 95.6 fL (75.5-95.3); MONOCYTES # (AUTO) 0.4 K/uL (2.0-10.0); MONOCYTES % (AUTO) 5.5 % (0.0-11.0); NEUTROPHILS # (AUTO) 5.8 K/uL (1.8-8.9); NEUTROPHILS % (AUTO) 73.7 % (38.5-71.5); PLATELET COUNT (AUTO) 242 K/uL (179-408); RED BLOOD CELL COUNT(AUTO) 3.33 MIL/uL (3.63-4.92); WHITE BLOOD COUNT (AUTO) 7.8 K/uL (3.8-11.8)
[2020-10-13] MEDS: LEVOTHYROXINE SODIUM 125 MCG TABLET NG SCH (05:26)
[2020-10-13] MEDS: MEROPENEM 1 G in IV NORMAL SALINE 100 ML IV SCH ×3 (05:26→21:42)
[2020-10-13] MEDS: ACIDOPHILUS/BULGARICUS CHEW TAB GT SCH ×3 (05:26→22:33)
[2020-10-13 05:28] LABS: CREATININE 0.6 mg/dL (0.6-1.3); MAGNESIUM 1.7 mg/dL (1.8-2.4); PHOSPHOROUS 2.7 mg/dL (2.5-4.9); POTASSIUM 3.7 mmol/L (3.5-5.1)
[2020-10-13] MEDS ORDERED: POTASSIUM CHLORIDE 20 MEQ POWDER PACKET NG ONE (06:45)
[2020-10-13] MEDS: PROTEIN SUPPLEMENT (PROSTAT) 30 ML LIQUID PO SCH ×3 (07:49→17:13)
[2020-10-13] MEDS: MAGNESIUM SULFATE/D5W 100 ML IV SCH ×2 (07:49→09:14)
[2020-10-13] MEDS: ASPIRIN EC 81 MG TABLET.DR PO SCH (08:00)
[2020-10-13] MEDS: CHOLECALCIFEROL 1,000 UNIT TABLET PO SCH (08:00)
[2020-10-13] MEDS: AMIODARONE HCL 200 MG TABLET PO SCH ×2 (08:01→21:42)
[2020-10-13] MEDS: FAMOTIDINE 20 MG TABLET GT SCH ×2 (08:01→20:45)
[2020-10-13] MEDS: ENOXAPARIN SODIUM 100 MG/ML DISP.SYRIN SQ SCH ×2 (08:02→20:44)
[2020-10-13] MEDS: Z GUARD REMEDY PASTE 57 GM TUBE TOP SCH ×2 (08:02→20:47)
[2020-10-13 10:46] LABS: ABG BASE EXCESS 1.8 mmol/L; ABG HCO3 27.6 mmol/L; ABG PH 7.369 (7.350-7.450); ABG PO2 80.2 mmHg (75.0-100.0); ABG SITE RIGHT RADIAL; ABG TOTAL HEMOGLOBIN 11.3 G/dL (12.0-16.0); MetHb 0.2 % (0.0-1.5); O2Hb 94.1 % (94.0-97.0); VENT MODE VENT - A/C; VT, ABG 550 mL
--- NOTE | 2020-10-13 11:34 | NUR ---
WOUND CARE CONSULT: REVIEWED CHART, NURSING DOCUMENTATION AND PHOTOS WHICH INDICATE DEEP TISSUE INJURY IN EVOLUTION TO SACRUM EXTENDING TO BUTTOCKS. PT HAD BEEN INCONTINENT OF LOOSE STOOL AND NOW HAS RECTAL TUBE. RECOMMEND SURGICAL CONSULT. RECOMMENDATIONS MADE FOR SKIN PROTECTION AND WOUND CARE. DISCUSSED WITH NURSING STAFF AND [facility] PT IS ON [facility] AIR BED. MD IN AGREEMENT WITH PLAN OF CARE. PT HAS MULTIPLE CO-MORBIDITIES INCLUDING COVID 19 INFECTION AND IS CURRENTLY INTUBATED.
--- NOTE | 2020-10-13 19:15 | NUR ---
MOUTH IS BLOODY WITH SMALL AMOUNT OF FRESH BLOOD , BITE HOLD IS IN PLACE
--- NOTE | 2020-10-13 19:15 | NUR ---
received patient sedated , only withdraws to pain , on propofol at 40 mcg , ngt at 25 ml , placement and residual checked vent settings ac 26 tv 550 p 5 50 % fio2
[2020-10-13] MEDS ORDERED: AMIODARONE HCL 200 MG TABLET ONE (21:21)
[2020-10-13] MEDS: INSULIN GLARGINE,HUM 300 UNITS/3 ML CARTRIDGE SQ SCH (22:30)
[2020-10-14] VITALS (24 sets, daily range): BP systolic 86–140; BP diastolic 49–75
--- NOTE | 2020-10-14 | NUR ---
ngt turned off for procedure , ngt clamped
[2020-10-14] MEDS: BLOOD SUGAR DIAGNOSTIC 1 EACH STRIP VI SCH ×4 (00:14→18:33)
[2020-10-14] MEDS: INSULIN REGULAR, HUMAN 300 UNIT/3 ML VIAL SQ PRN (00:18)
--- NOTE | 2020-10-14 00:30 | NUR ---
rectal bag change , rectal probe change . patient change and bath given
[2020-10-14] MEDS: MICAFUNGIN SODIUM 100 MG in IV NORMAL SALINE 100 ML IV SCH (00:31)
[2020-10-14] MEDS: PROPOFOL 100 ML IV PRN ×7 (00:42→23:06)
[2020-10-14] MEDS: LEVOTHYROXINE SODIUM 125 MCG TABLET NG SCH (05:19)
[2020-10-14] MEDS: MEROPENEM 1 G in IV NORMAL SALINE 100 ML IV SCH ×3 (05:19→21:32)
[2020-10-14] MEDS: ACIDOPHILUS/BULGARICUS CHEW TAB GT SCH ×3 (05:19→21:33)
--- NOTE | 2020-10-14 06:00 | NUR ---
bs 111 no insulin given + npo for procedure
--- NOTE | 2020-10-14 06:00 | NUR ---
vent setting the same , arousable to deep pain by withdrawal , diprivan at 40 mcg , ngt feeding clamped for procedure , no fever , rectal tube and gallego intact .
[2020-10-14 06:15] LABS: BILIRUBIN,TOTAL 0.4 mg/dL (0.2-1.0); CREATININE 0.6 mg/dL (0.6-1.3); POTASSIUM 4.1 mmol/L (3.5-5.1); TOTAL PROTEIN, SERUM 6.3 g/dL (6.4-8.2)
--- NOTE | 2020-10-14 07:10 | NUR ---
received patient sedated on propofol 40mcg/kg/min, only withdraws to pain , ngt at 25 ml and rectal tube in place for diarrhea. Patient on Shanda vent settings ac 26 tv 550 p 5 50 % fio2 intubated with ETT 8, 24cm at the lip line. Peter catheter draining. No distress noted at this time. Blood noted at corner of right lip and dried along bottom lip and tongue.
[2020-10-14] MEDS: PROTEIN SUPPLEMENT (PROSTAT) 30 ML LIQUID PO SCH ×3 (07:26→16:05)
[2020-10-14 08:00] LABS: BASOPHILS # (AUTO) 0.2 K/uL (0.0-8.0); BASOPHILS % (AUTO) 2.6 % (0.0-2.0); EOSINOPHILS # (AUTO) 0.2 K/uL (0.0-0.7); EOSINOPHILS % (AUTO) 3.3 % (0.0-7.0); HEMATOCRIT 32.3 % (31.2-41.9); HEMOGLOBIN 10.6 g/dL (10.9-14.3); LYMPHOCYTES # (AUTO) 1.2 K/uL (20.0-40.0); LYMPHOCYTES % (AUTO) 16.4 % (20.5-51.5); MEAN CORPUSCULAR HEMOGLOBIN 31.1 uug (24.7-32.8); MEAN CORPUSCULAR HGB CONC 33 g/dL (32.3-35.6); MEAN CORPUSCULAR VOLUME 94.9 fL (75.5-95.3); MONOCYTES # (AUTO) 0.5 K/uL (2.0-10.0); MONOCYTES % (AUTO) 7.1 % (0.0-11.0); NEUTROPHILS % (AUTO) 70.6 % (38.5-71.5); PLATELET COUNT (AUTO) 287 K/uL (179-408)
[2020-10-14] MEDS: FAMOTIDINE 20 MG TABLET GT SCH ×2 (08:01→21:33)
[2020-10-14] MEDS: CHOLECALCIFEROL 1,000 UNIT TABLET PO SCH (08:02)
[2020-10-14] MEDS: ASPIRIN EC 81 MG TABLET.DR PO SCH (08:02)
[2020-10-14] MEDS: ENOXAPARIN SODIUM 100 MG/ML DISP.SYRIN SQ SCH ×2 (08:03→21:32)
[2020-10-14] MEDS: Z GUARD REMEDY PASTE 57 GM TUBE TOP SCH ×2 (08:04→21:33)
[2020-10-14] MEDS: AMIODARONE HCL 200 MG TABLET PO SCH ×2 (08:05→21:34)
--- NOTE | 2020-10-14 09:00 | NUR ---
Dr Horton called and stated that he got called into emergent surgery and will not be here at noon to place tracheostomy.
[2020-10-14 09:24] LABS: ABG BASE EXCESS 3.5 mmol/L; ABG HCO3 28.5 mmol/L; ABG PCO2 45.3 mmHg (35.0-45.0); ABG PH 7.417 (7.350-7.450); ABG PO2 83.4 mmHg (75.0-100.0); ABG SITE RIGHT RADIAL; ABG TOTAL HEMOGLOBIN 10.9 G/dL (12.0-16.0); COHb 0.6 % (0.5-1.5); MetHb 0.1 % (0.0-1.5); O2Hb 95.5 % (94.0-97.0); VENT MODE VENT - A/C; VT, ABG 550 mL
--- NOTE | 2020-10-14 14:00 | NUR ---
OR team at bedside to begin PEG placement procedure.
--- NOTE | 2020-10-14 14:17 | NUR ---
Discussed peg placement with Dr. Yoo, tube feeding available to be used at 1815pm this evening for medications and water only. No tube feeding till tomorrow AM.
[2020-10-14] MEDS ORDERED: PROPOFOL 200 MG/20 ML BOTTLE IV ONE (14:23)
[2020-10-14] MEDS ORDERED: CEFAZOLIN 1 G VIAL IM ONE (14:23)
[2020-10-14] MEDS: NYSTATIN SUSPENSION 5 ML LIQUID UDC PO SCH (19:48)
[2020-10-14] MEDS: INSULIN GLARGINE,HUM 300 UNITS/3 ML CARTRIDGE SQ SCH (21:00)
[2020-10-15] VITALS (24 sets, daily range): BP systolic 82–146; BP diastolic 46–72
[2020-10-15] MEDS: BLOOD SUGAR DIAGNOSTIC 1 EACH STRIP VI SCH ×5 (00:16→23:37)
[2020-10-15] MEDS: NYSTATIN SUSPENSION 5 ML LIQUID UDC PO SCH ×5 (00:16→23:23)
[2020-10-15] MEDS: MICAFUNGIN SODIUM 100 MG in IV NORMAL SALINE 100 ML IV SCH ×2 (00:18→23:41)
[2020-10-15] MEDS: PROPOFOL 100 ML IV PRN ×6 (04:50→22:17)
[2020-10-15] MEDS: MEROPENEM 1 G in IV NORMAL SALINE 100 ML IV SCH ×3 (05:28→21:03)
[2020-10-15] MEDS: ACIDOPHILUS/BULGARICUS CHEW TAB GT SCH ×3 (05:28→20:27)
[2020-10-15] MEDS: LEVOTHYROXINE SODIUM 125 MCG TABLET NG SCH (05:29)
[2020-10-15 06:03] LABS: BASOPHILS # (AUTO) 0.1 K/uL (0.0-8.0); BASOPHILS % (AUTO) 0.9 % (0.0-2.0); EOSINOPHILS # (AUTO) 0.2 K/uL (0.0-0.7); EOSINOPHILS % (AUTO) 2.3 % (0.0-7.0); HEMATOCRIT 31.5 % (31.2-41.9); HEMOGLOBIN 10.4 g/dL (10.9-14.3); LYMPHOCYTES # (AUTO) 1.4 K/uL (20.0-40.0); LYMPHOCYTES % (AUTO) 14.7 % (20.5-51.5); MEAN CORPUSCULAR HEMOGLOBIN 31.5 uug (24.7-32.8); MEAN CORPUSCULAR HGB CONC 33 g/dL (32.3-35.6); MEAN CORPUSCULAR VOLUME 95.4 fL (75.5-95.3); MONOCYTES # (AUTO) 0.6 K/uL (2.0-10.0); MONOCYTES % (AUTO) 6.8 % (0.0-11.0); NEUTROPHILS % (AUTO) 75.3 % (38.5-71.5); PLATELET COUNT (AUTO) 318 K/uL (179-408); WHITE BLOOD COUNT (AUTO) 9.3 K/uL (3.8-11.8)
[2020-10-15 06:16] LABS: MAGNESIUM 1.6 mg/dL (1.8-2.4); PHOSPHOROUS 2.5 mg/dL (2.5-4.9)
[2020-10-15 06:28] LABS: CARBON DIOXIDE 30 mmol/L (21-32); CHLORIDE 104 mmol/L (98-107); CREATININE 0.4 mg/dL (0.6-1.3); GLUCOSE 146 mg/dL (74-106); POTASSIUM 5.2 mmol/L (3.5-5.1); UREA NITROGEN, BLOOD 19 mg/dL (7-18)
[2020-10-15 06:33] LABS: ABG BASE EXCESS 3.1 mmol/L; ABG HCO3 26.5 mmol/L; ABG PCO2 36.6 mmHg (35.0-45.0); ABG PH 7.477 (7.350-7.450); ABG PO2 62.4 mmHg (75.0-100.0); ABG SITE RIGHT RADIAL; COHb 1.4 % (0.5-1.5); MetHb 0.1 % (0.0-1.5); O2Hb 91.9 % (94.0-97.0); VENT MODE VENT - A/C; VT, ABG 550 mL
--- NOTE | 2020-10-15 07:36 | NUR ---
notified Misbah Berrios NP of abnormal chemistries potassium 5.2 and magnesium 1.6 awaiting results. Addendum: 10/15/20 at 0737 by SINDHU JEAN-BAPTISTE RN Waiting for new orders not results.
[2020-10-15] MEDS: PROTEIN SUPPLEMENT (PROSTAT) 30 ML LIQUID PO SCH ×3 (08:01→17:20)
[2020-10-15] MEDS: FAMOTIDINE 20 MG TABLET GT SCH ×2 (08:01→20:27)
[2020-10-15] MEDS: ASPIRIN EC 81 MG TABLET.DR PO SCH (08:02)
[2020-10-15] MEDS: AMIODARONE HCL 200 MG TABLET PO SCH ×2 (08:02→20:27)
[2020-10-15] MEDS: CHOLECALCIFEROL 1,000 UNIT TABLET PO SCH (08:02)
[2020-10-15] MEDS: ENOXAPARIN SODIUM 100 MG/ML DISP.SYRIN SQ SCH ×2 (08:02→20:24)
[2020-10-15] MEDS: Z GUARD REMEDY PASTE 57 GM TUBE TOP SCH ×2 (08:02→20:30)
[2020-10-15] MEDS ORDERED: MAGNESIUM SULFATE 1 GM in IV DEXTROSE 5% 100 ML IV ONE (09:00)
[2020-10-15] MEDS ORDERED: FUROSEMIDE 20 MG/2 ML VIAL IV ONE (09:15)
[2020-10-15] MEDS ORDERED: MAGNESIUM SULFATE/D5W 100 ML IV SCH (09:15)
[2020-10-15] MEDS: SODIUM POLYSTYRENE SULFONATE 15 G/60 ML LIQUID UDC GT ONE ×2 (09:38→09:41)
[2020-10-15] MEDS: INSULIN REGULAR, HUMAN 300 UNIT/3 ML VIAL SQ PRN ×3 (12:50→23:40)
[2020-10-15] MEDS: GLUCERNA 1.2 1000ML LIQUID GT PRN (18:29)
--- NOTE | 2020-10-15 18:29 | NUR ---
Patient continues to be on susana vent intubated ETT 8, 24 cm at the lip line, fio2 40%, TV 550, Peep 5. Peter catheter and rectal tube in tact and feeding restarted today and tolerated well. Patient has been sinus/faith throughout the day. Patient given a full bed bath with hair washing, wound care performed on sacrum and oral care frequently provided. Will endorse to oncoming shift.
[2020-10-15] MEDS: INSULIN GLARGINE,HUM 300 UNITS/3 ML CARTRIDGE SQ SCH (20:36)
--- NOTE | 2020-10-15 23:45 | NUR ---
Changed Peter #16 / prior order / tip sent / Cx.
[2020-10-16] VITALS (27 sets, daily range): BP systolic 109–155; BP diastolic 55–76
[2020-10-16] MEDS: PROPOFOL 100 ML IV PRN ×7 (01:47→23:07)
[2020-10-16] MEDS: INSULIN REGULAR, HUMAN 300 UNIT/3 ML VIAL SQ PRN ×3 (05:03→17:58)
[2020-10-16 05:08] LABS: BASOPHILS % (AUTO) 0.2 % (0.0-2.0); EOSINOPHILS # (AUTO) 0.2 K/uL (0.0-0.7); EOSINOPHILS % (AUTO) 2.9 % (0.0-7.0); HEMATOCRIT 31.5 % (31.2-41.9); HEMOGLOBIN 10.6 g/dL (10.9-14.3); LYMPHOCYTES # (AUTO) 1.5 K/uL (20.0-40.0); LYMPHOCYTES % (AUTO) 17.3 % (20.5-51.5); MEAN CORPUSCULAR HEMOGLOBIN 31.7 uug (24.7-32.8); MEAN CORPUSCULAR HGB CONC 34 g/dL (32.3-35.6); MEAN CORPUSCULAR VOLUME 94.2 fL (75.5-95.3); MONOCYTES # (AUTO) 0.6 K/uL (2.0-10.0); MONOCYTES % (AUTO) 7.1 % (0.0-11.0); NEUTROPHILS # (AUTO) 6.2 K/uL (1.8-8.9); NEUTROPHILS % (AUTO) 72.5 % (38.5-71.5); PLATELET COUNT (AUTO) 363 K/uL (179-408); RED BLOOD CELL COUNT(AUTO) 3.34 MIL/uL (3.63-4.92); WHITE BLOOD COUNT (AUTO) 8.5 K/uL (3.8-11.8)
[2020-10-16] MEDS: MEROPENEM 1 G in IV NORMAL SALINE 100 ML IV SCH ×3 (05:13→21:48)
[2020-10-16 05:16] LABS: CREATININE 0.7 mg/dL (0.6-1.3); MAGNESIUM 1.5 mg/dL (1.8-2.4); PHOSPHOROUS 2.3 mg/dL (2.5-4.9); POTASSIUM 3.8 mmol/L (3.5-5.1)
[2020-10-16] MEDS: BLOOD SUGAR DIAGNOSTIC 1 EACH STRIP VI SCH ×3 (05:18→17:37)
[2020-10-16] MEDS: NYSTATIN SUSPENSION 5 ML LIQUID UDC PO SCH ×3 (05:18→17:44)
[2020-10-16 05:24] LABS: ABG BASE EXCESS 4.1 mmol/L; ABG HCO3 26.9 mmol/L; ABG PCO2 33.9 mmHg (35.0-45.0); ABG PH 7.517 (7.350-7.450); ABG PO2 61.4 mmHg (75.0-100.0); ABG SITE LEFT RADIAL; ABG TOTAL HEMOGLOBIN 11.4 G/dL (12.0-16.0); COHb 0.8 % (0.5-1.5); MetHb 0.1 % (0.0-1.5); O2Hb 91.3 % (94.0-97.0); VENT MODE VENT - A/C; VT, ABG 550 mL
[2020-10-16] MEDS: LEVOTHYROXINE SODIUM 125 MCG TABLET NG SCH (05:44)
[2020-10-16] MEDS: ACIDOPHILUS/BULGARICUS CHEW TAB GT SCH ×3 (05:44→22:27)
[2020-10-16] MEDS: AMIODARONE HCL 200 MG TABLET PO SCH ×2 (08:09→20:30)
[2020-10-16] MEDS: ASPIRIN EC 81 MG TABLET.DR PO SCH (08:09)
[2020-10-16] MEDS: FAMOTIDINE 20 MG TABLET GT SCH ×2 (08:09→20:29)
[2020-10-16] MEDS: CHOLECALCIFEROL 1,000 UNIT TABLET PO SCH (08:09)
[2020-10-16] MEDS: ENOXAPARIN SODIUM 100 MG/ML DISP.SYRIN SQ SCH ×2 (08:10→20:34)
[2020-10-16] MEDS: Z GUARD REMEDY PASTE 57 GM TUBE TOP SCH ×2 (08:11→20:34)
[2020-10-16] MEDS: PROTEIN SUPPLEMENT (PROSTAT) 30 ML LIQUID PO SCH ×3 (08:11→17:36)
--- NOTE | 2020-10-16 09:20 | NUR ---
Pulmonary services Dr. Lama in the unit. Full report given to Dr. Lama. see order history for new orders. Dr. Lama at bedside assessing patient.
--- NOTE | 2020-10-16 09:30 | NUR ---
Attending Dr. Dr Bynum in the unit, full report given to Dr. Bynum. See order history for new orders.
[2020-10-16] MEDS ORDERED: NEUTRA PHOS PACKET PO ONE (10:00)
[2020-10-16] MEDS: MAGNESIUM SULFATE/D5W 100 ML IV SCH ×2 (10:21→12:04)
[2020-10-16] MEDS ORDERED: NEUTRA PHOS PACKET NG ONE (12:00)
--- NOTE | 2020-10-16 19:10 | NUR ---
Received patient in bed orally intubated. ETT to vent size 8 @24cm at the lip. Vent settings AC 24, Vt 550, Fio2 35%, PEEP 5. Patient is well sedated with propofol @40mcg/kg/min. ETT suctioned with moderate secretions, no signs of distress. Spo2 @96%. CHELE triple lumen PICC all lines patent and dressing clean. Peter present and well draining clear yellow urine. Flexiseal present well sealed draining liquid brown stools, flushed and patent. Current temp 98.6. Patient on [facility] bed. Mattress currently functioning properly and set to auto turn. PEG tube present running glucerna @25ml/hr, 5ml residual.
--- NOTE | 2020-10-16 20:00 | NUR ---
Oral care completed. Patient has extensive dried blood on the lips and inside the mouth. All dried blood removed, oral cavity cleansed, rinsed, and suctioned. The patient's lips have extensive sores on the lower lip. The entire lip and oral cavity was cleansed with hydrogen peroxide solution, then gently dried. Petroleum jelly applied to the lips. Lower lip ensured it is not in contact with the ET tube.
[2020-10-16] MEDS: INSULIN GLARGINE,HUM 300 UNITS/3 ML CARTRIDGE SQ SCH (20:34)
[2020-10-17] VITALS (23 sets, daily range): BP systolic 85–167; BP diastolic 52–94
[2020-10-17] MEDS: BLOOD SUGAR DIAGNOSTIC 1 EACH STRIP VI SCH ×4 (00:07→17:47)
[2020-10-17] MEDS: INSULIN REGULAR, HUMAN 300 UNIT/3 ML VIAL SQ PRN ×3 (00:08→20:54)
[2020-10-17] MEDS: MICAFUNGIN SODIUM 100 MG in IV NORMAL SALINE 100 ML IV SCH (00:09)
[2020-10-17] MEDS: NYSTATIN SUSPENSION 5 ML LIQUID UDC PO SCH ×5 (00:09→23:46)
[2020-10-17] MEDS: PROPOFOL 100 ML IV PRN ×7 (03:01→23:46)
[2020-10-17 05:17] LABS: BASOPHILS % (AUTO) 0.2 % (0.0-2.0); EOSINOPHILS # (AUTO) 0.3 K/uL (0.0-0.7); EOSINOPHILS % (AUTO) 3.1 % (0.0-7.0); HEMATOCRIT 31.6 % (31.2-41.9); HEMOGLOBIN 10.6 g/dL (10.9-14.3); LYMPHOCYTES % (AUTO) 12.4 % (20.5-51.5); MEAN CORPUSCULAR HEMOGLOBIN 31.9 uug (24.7-32.8); MEAN CORPUSCULAR HGB CONC 34 g/dL (32.3-35.6); MEAN CORPUSCULAR VOLUME 94.4 fL (75.5-95.3); MONOCYTES # (AUTO) 0.5 K/uL (2.0-10.0); MONOCYTES % (AUTO) 6.7 % (0.0-11.0); NEUTROPHILS # (AUTO) 6.4 K/uL (1.8-8.9); NEUTROPHILS % (AUTO) 77.6 % (38.5-71.5); PLATELET COUNT (AUTO) 307 K/uL (179-408); RED BLOOD CELL COUNT(AUTO) 3.34 MIL/uL (3.63-4.92); WHITE BLOOD COUNT (AUTO) 8.2 K/uL (3.8-11.8)
[2020-10-17 05:31] LABS: CREATININE 0.7 mg/dL (0.6-1.3); MAGNESIUM 1.9 mg/dL (1.8-2.4); PHOSPHOROUS 3.3 mg/dL (2.5-4.9); POTASSIUM 3.8 mmol/L (3.5-5.1)
[2020-10-17] MEDS: LEVOTHYROXINE SODIUM 125 MCG TABLET NG SCH (06:05)
[2020-10-17] MEDS: ACIDOPHILUS/BULGARICUS CHEW TAB GT SCH ×3 (06:05→21:04)
[2020-10-17] MEDS: MEROPENEM 1 G in IV NORMAL SALINE 100 ML IV SCH ×3 (06:05→21:04)
--- NOTE | 2020-10-17 07:15 | NUR ---
Received report from restaurant shift supervisor nurse, patient in bed sedated on 30mcg/kg/hr propofol, With ETT 8.0 24cm at the lip line, TV 550, fio2 35%, Peep 5. Sinus rhythm on the monitor, saturation 95%, Picc line intact on left upper arm. Peter draining, rectal tube in place draining appropriately. GTube intact and patent. No distress noted at this time. Bed in low position, side rails up x2.
[2020-10-17] MEDS: FAMOTIDINE 20 MG TABLET GT SCH ×2 (08:37→20:27)
[2020-10-17] MEDS: CHOLECALCIFEROL 1,000 UNIT TABLET PO SCH (08:37)
[2020-10-17] MEDS: ASPIRIN EC 81 MG TABLET.DR PO SCH (08:37)
[2020-10-17] MEDS: PROTEIN SUPPLEMENT (PROSTAT) 30 ML LIQUID PO SCH ×3 (08:37→16:16)
[2020-10-17] MEDS: AMIODARONE HCL 200 MG TABLET PO SCH ×2 (08:38→20:28)
[2020-10-17] MEDS: ENOXAPARIN SODIUM 100 MG/ML DISP.SYRIN SQ SCH ×2 (08:38→20:29)
[2020-10-17] MEDS: Z GUARD REMEDY PASTE 57 GM TUBE TOP SCH ×2 (08:38→20:31)
[2020-10-17 08:50] LABS: ABG BASE EXCESS 5.1 mmol/L; ABG HCO3 27.5 mmol/L; ABG PCO2 32.9 mmHg (35.0-45.0); ABG PO2 73.6 mmHg (75.0-100.0); ABG SITE LEFT RADIAL; ABG TOTAL HEMOGLOBIN 11.6 G/dL (12.0-16.0); COHb 1.1 % (0.5-1.5); O2Hb 93.8 % (94.0-97.0); VENT MODE VENT - A/C; VT, ABG 550 mL
[2020-10-17] MEDS: GLUCERNA 1.2 1000ML LIQUID GT PRN (12:50)
--- NOTE | 2020-10-17 18:55 | NUR ---
Patient in bed sedated on 50mcg/kg/hr propofol, With ETT 8.0 24cm at the lip line, TV 550, fio2 35%, Peep 5. Sinus rhythm on the monitor, saturation 95%, Picc line intact on left upper arm. Peter draining, rectal tube in place draining appropriately. GTube intact and patent. No distress noted at this time. Bed in low position, side rails up x2. Noted to have some mild bleeding around gtube site, cleansed and redressed with drain sponge.
[2020-10-17] MEDS: INSULIN GLARGINE,HUM 300 UNITS/3 ML CARTRIDGE SQ SCH (20:49)
--- NOTE | 2020-10-17 20:54 | NUR ---
fingerstick FS =164 given LANTUS 40 UNITS and REGULAR INSULIN 4 UNITS CO SIGNED WITH ANOTHER RN.
[2020-10-17] MEDS: SODIUM HYPOCHLORITE 0.125% (QUARTER STRENGTH) 473 ML BOTTLE TP SCH (21:45)
--- NOTE | 2020-10-17 23:44 | NUR ---
new order DAKINS solution wound treatment not given new order medication not here .
[2020-10-18] VITALS (24 sets, daily range): BP systolic 102–148; BP diastolic 53–89
[2020-10-18] MEDS: BLOOD SUGAR DIAGNOSTIC 1 EACH STRIP VI SCH ×5 (00:11→23:38)
[2020-10-18] MEDS: INSULIN REGULAR, HUMAN 300 UNIT/3 ML VIAL SQ PRN ×3 (00:12→23:40)
[2020-10-18] MEDS: PROPOFOL 100 ML IV PRN ×7 (02:29→23:23)
--- NOTE | 2020-10-18 03:30 | NUR ---
am care done changed soiled linens and gown .skin care done .photo taken on patient wound sacral area ,placed in chart photo day .oral care done ,f/c done.
[2020-10-18] MEDS: MEROPENEM 1 G in IV NORMAL SALINE 100 ML IV SCH ×3 (05:07→22:32)
[2020-10-18] MEDS: NYSTATIN SUSPENSION 5 ML LIQUID UDC PO SCH ×4 (05:08→23:25)
[2020-10-18] MEDS: LEVOTHYROXINE SODIUM 125 MCG TABLET NG SCH (05:08)
[2020-10-18] MEDS: ACIDOPHILUS/BULGARICUS CHEW TAB GT SCH ×3 (05:10→22:30)
[2020-10-18] MEDS: IV NORMAL SALINE 250 ML IV PRN (05:11)
[2020-10-18 05:20] LABS: BASOPHILS # (AUTO) 0.1 K/uL (0.0-8.0); EOSINOPHILS # (AUTO) 0.3 K/uL (0.0-0.7); EOSINOPHILS % (AUTO) 3.9 % (0.0-7.0); HEMATOCRIT 32.7 % (31.2-41.9); LYMPHOCYTES # (AUTO) 1.8 K/uL (20.0-40.0); LYMPHOCYTES % (AUTO) 21.2 % (20.5-51.5); MEAN CORPUSCULAR HEMOGLOBIN 31.4 uug (24.7-32.8); MEAN CORPUSCULAR HGB CONC 34 g/dL (32.3-35.6); MEAN CORPUSCULAR VOLUME 93.9 fL (75.5-95.3); MONOCYTES # (AUTO) 0.5 K/uL (2.0-10.0); MONOCYTES % (AUTO) 5.8 % (0.0-11.0); NEUTROPHILS # (AUTO) 5.8 K/uL (1.8-8.9); NEUTROPHILS % (AUTO) 68.1 % (38.5-71.5); PLATELET COUNT (AUTO) 424 K/uL (179-408); RED BLOOD CELL COUNT(AUTO) 3.49 MIL/uL (3.63-4.92); WHITE BLOOD COUNT (AUTO) 8.5 K/uL (3.8-11.8)
[2020-10-18 05:31] LABS: CREATININE 0.7 mg/dL (0.6-1.3); MAGNESIUM 1.7 mg/dL (1.8-2.4); PHOSPHOROUS 3.1 mg/dL (2.5-4.9); POTASSIUM 3.7 mmol/L (3.5-5.1)
--- NOTE | 2020-10-18 07:20 | NUR ---
Received report from field crop harvest contractor nurse, patient in bed sedated on 50mcg/kg/hr propofol, With ETT 8.0 24cm at the lip line, TV 550, fio2 35%, Peep 5. Sinus rhythm on the monitor, saturation 95%, Picc line intact on left upper arm. Peter draining, rectal tube in place draining appropriately. GTube intact and clamped at this time. No distress noted. Bed in low position, side rails up x2.
[2020-10-18] MEDS: PROTEIN SUPPLEMENT (PROSTAT) 30 ML LIQUID PO SCH ×3 (07:39→17:18)
[2020-10-18] MEDS: AMIODARONE HCL 200 MG TABLET PO SCH ×2 (08:02→20:06)
[2020-10-18] MEDS: FAMOTIDINE 20 MG TABLET GT SCH ×2 (08:02→20:05)
[2020-10-18] MEDS: ASPIRIN EC 81 MG TABLET.DR PO SCH (08:03)
[2020-10-18] MEDS: CHOLECALCIFEROL 1,000 UNIT TABLET PO SCH (08:03)
[2020-10-18] MEDS: ENOXAPARIN SODIUM 100 MG/ML DISP.SYRIN SQ SCH ×3 (08:04→20:08)
[2020-10-18] MEDS: Z GUARD REMEDY PASTE 57 GM TUBE TOP SCH ×2 (08:06→20:06)
--- NOTE | 2020-10-18 08:07 | NUR ---
received call from Dr. Whitley that he will be coming in to do a tracheostomy around 1-2 pm today and to make the patient npo.
[2020-10-18] MEDS: SODIUM HYPOCHLORITE 0.125% (QUARTER STRENGTH) 473 ML BOTTLE TP SCH (08:29)
[2020-10-18 08:33] LABS: ABG BASE EXCESS 2.8 mmol/L; ABG HCO3 25.8 mmol/L; ABG PCO2 34.3 mmHg (35.0-45.0); ABG PH 7.495 (7.350-7.450); ABG PO2 71.4 mmHg (75.0-100.0); ABG SITE LEFT RADIAL; ABG TOTAL HEMOGLOBIN 10.9 G/dL (12.0-16.0); COHb 0.9 % (0.5-1.5); MetHb 0.1 % (0.0-1.5); O2Hb 93.7 % (94.0-97.0); VENT MODE VENT - A/C; VT, ABG 550 mL
[2020-10-18] MEDS: MAGNESIUM SULFATE/D5W 100 ML IV SCH ×2 (09:36→11:19)
[2020-10-18 10:24] LABS: *BILIRUBIN,URIN 1+ (NEGATIVE); *BLOOD, URINE NEGATIVE (NEGATIVE); *CLARITY,URINE CLEAR (CLEAR); *COLOR,URINE YELLOW (YELLOW); *KETONES,URINE NEGATIVE (NEGATIVE); *UROBILINOGEN,URINE 0.2 E.U./dl (NORMAL); LEUKOCYTE ESTERASE ,URINE NEGATIVE (NEGATIVE); NITRITE, URINE NEGATIVE (NEGATIVE); UGLUCOSE NEGATIVE (NEGATIVE)
[2020-10-18] MEDS ORDERED: FUROSEMIDE 40 MG/4 ML VIAL IV ONE (11:45)
--- NOTE | 2020-10-18 13:03 | NUR ---
WOUND CARE CONSULT: REVIEWED CHART, NURSING DOCUMENTATION AND PHOTO WHICH INDICATES DEEP TISSUE INJURY IN EVOLUTION. CLARIFIED UPDATED WOUND ORDERS WITH [facility] DISCUSSED WITH NURSING STAFF. PT IS ON [facility] E[facility] AIR BED. ALL SKIN PROTECTION MEASURES IN PLACE. MD IN AGREEMENT WITH PLAN OF CARE.
[2020-10-18 14:20] LABS: RBC,URINE 0-3 /HPF (0-3); WBC,URINE 0-3 /HPF (0-3)
[2020-10-18 14:21] LABS: BACTERIA,URINE FEW /HPF (NONE SEEN); SQUAMOUS EPITHELIAL CELL,UR FEW /HPF (NONE SEEN)
--- NOTE | 2020-10-18 15:15 | NUR ---
Doctor Fe asked for vecuronium for trach procedure at bedside. drawn up 10mg of vecuronium for Dr. Miramontes. Patient running 50 mcg/kg of propofol running while intubated monitored blood pressure.
--- NOTE | 2020-10-18 15:50 | NUR ---
Bedside tracheostomy performed by Dr. Miramontes and Dr. Horton, RT Tk at bedside. Vecuronium 10mg used for procedure and patient on Propofol 50mcg/kg/min.
[2020-10-18] MEDS ORDERED: VECURONIUM BROMIDE 10 MG VIAL IV ONE (16:00)
[2020-10-18] MEDS: GLUCERNA 1.2 1000ML LIQUID GT PRN (17:20)
--- NOTE | 2020-10-18 19:30 | NUR ---
ROUNDS MADE PATIENT IN BED ,TRACH TO VENT ,TOLERATED VENT SETTINGS. SATURATION 95%,TRACH SITE CLEAN DRY AND INTACT NO S/S OF PAIN .TRACH CARE DONE SUCTION VIA TRACH AND VIA MOUTH .PROPOFOL FOR SEDATION TOLERATING.TF VIA PEG TOLERATING GLUCERNA AT 25 ML /HR . HOB UP ASPIRATION PRECAUTION OBSERVED .F/C TO BSD .PATIENT ON [facility] AIR BED .TURNED AND REPOSITION PATIENT . CONTINUE TO MONITOR V/S AND LEVELS OF COMFORT .
[2020-10-18] MEDS: INSULIN GLARGINE,HUM 300 UNITS/3 ML CARTRIDGE SQ SCH (20:33)
--- NOTE | 2020-10-18 20:45 | NUR ---
FINGERSTICK DONE AND FOLLOW INSULIN SLIDING SCALE .
--- NOTE | 2020-10-18 21:00 | NUR ---
PATIENT SON CALLED AND UPDATED WITH PATIENT STATUS AND CONDITION .
--- NOTE | 2020-10-18 21:30 | NUR ---
DUE MEDICATION SCAN AND ADMINISTERED. FINGERSTICK DONE AND FOLLOW INSULIN SCALE .
[2020-10-19] VITALS (24 sets, daily range): BP systolic 94–158; BP diastolic 49–79
[2020-10-19] MEDS: PROPOFOL 100 ML IV PRN ×5 (02:18→23:56)
[2020-10-19] MEDS: MEROPENEM 1 G in IV NORMAL SALINE 100 ML IV SCH ×3 (05:16→22:18)
[2020-10-19] MEDS: NYSTATIN SUSPENSION 5 ML LIQUID UDC PO SCH ×3 (05:17→18:08)
[2020-10-19] MEDS: ACIDOPHILUS/BULGARICUS CHEW TAB GT SCH ×3 (05:18→22:17)
[2020-10-19] MEDS: LEVOTHYROXINE SODIUM 125 MCG TABLET NG SCH (05:19)
--- NOTE | 2020-10-19 05:30 | NUR ---
am care done bath patient changed soiled linens and gown . trach care done and oral care done . changed sacral dressing and follow wound care tx.
[2020-10-19] MEDS: BLOOD SUGAR DIAGNOSTIC 1 EACH STRIP VI SCH ×3 (05:33→18:07)
[2020-10-19] MEDS: INSULIN REGULAR, HUMAN 300 UNIT/3 ML VIAL SQ PRN ×3 (05:35→18:09)
[2020-10-19] MEDS: IV NORMAL SALINE 250 ML IV PRN (06:03)
[2020-10-19 06:30] LABS: MONOCYTES % (MANUAL) 5 % (2-10); NEUTROPHILS % (MANUAL) 91 % (42-75)
[2020-10-19 08:01] LABS: NUCLEATED RED BLOOD CELLS 0.1 /100WBC
[2020-10-19] MEDS: ASPIRIN EC 81 MG TABLET.DR PO SCH (08:11)
[2020-10-19] MEDS: AMIODARONE HCL 200 MG TABLET PO SCH ×2 (08:11→21:49)
[2020-10-19] MEDS: FAMOTIDINE 20 MG TABLET GT SCH ×2 (08:11→21:49)
[2020-10-19] MEDS: CHOLECALCIFEROL 1,000 UNIT TABLET PO SCH (08:11)
[2020-10-19] MEDS: PROTEIN SUPPLEMENT (PROSTAT) 30 ML LIQUID PO SCH ×3 (08:11→18:08)
[2020-10-19] MEDS: SODIUM HYPOCHLORITE 0.125% (QUARTER STRENGTH) 473 ML BOTTLE TP SCH (08:12)
[2020-10-19] MEDS: ENOXAPARIN SODIUM 100 MG/ML DISP.SYRIN SQ SCH ×2 (08:12→21:51)
[2020-10-19] MEDS: Z GUARD REMEDY PASTE 57 GM TUBE TOP SCH ×2 (08:12→21:51)
[2020-10-19 08:26] LABS: CREATININE 0.8 mg/dL (0.6-1.3); MAGNESIUM 1.7 mg/dL (1.8-2.4); PHOSPHOROUS 3.2 mg/dL (2.5-4.9); POTASSIUM 3.8 mmol/L (3.5-5.1)
[2020-10-19 09:15] LABS: HEMATOCRIT 32.6 % (31.2-41.9); MEAN CORPUSCULAR VOLUME 93.5 fL (75.5-95.3); RED BLOOD CELL COUNT(AUTO) 3.48 MIL/uL (3.63-4.92); WHITE BLOOD COUNT (AUTO) 8.2 K/uL (3.8-11.8)
[2020-10-19 09:16] LABS: LYMPHOCYTES % (AUTO) 18.1 % (20.5-51.5); MEAN CORPUSCULAR HEMOGLOBIN 31.5 uug (24.7-32.8); MEAN CORPUSCULAR HGB CONC 34 g/dL (32.3-35.6); NEUTROPHILS % (AUTO) 69.2 % (38.5-71.5); PLATELET COUNT (AUTO) 421 K/uL (179-408)
[2020-10-19 09:17] LABS: BASOPHILS # (AUTO) 0.1 K/uL (0.0-8.0); BASOPHILS % (AUTO) 1.5 % (0.0-2.0); EOSINOPHILS # (AUTO) 0.3 K/uL (0.0-0.7); EOSINOPHILS % (AUTO) 3.6 % (0.0-7.0); LYMPHOCYTES # (AUTO) 1.5 K/uL (20.0-40.0); MONOCYTES # (AUTO) 0.6 K/uL (2.0-10.0); MONOCYTES % (AUTO) 7.6 % (0.0-11.0); NEUTROPHILS # (AUTO) 5.7 K/uL (1.8-8.9)
[2020-10-19 09:25] LABS: LYMPHOCYTES % (MANUAL) 4 % (20-40)
[2020-10-19 09:37] LABS: ABG BASE EXCESS 3.6 mmol/L; ABG HCO3 27.1 mmol/L; ABG PCO2 36.8 mmHg (35.0-45.0); ABG PH 7.485 (7.350-7.450); ABG PO2 73.9 mmHg (75.0-100.0); ABG SITE RIGHT RADIAL; ABG TOTAL HEMOGLOBIN 11.3 G/dL (12.0-16.0); MetHb 0.4 % (0.0-1.5); VENT MODE VENT - A/C; VT, ABG 550 mL
[2020-10-19] MEDS: MAGNESIUM SULFATE/D5W 100 ML IV SCH ×2 (10:31→11:18)
--- NOTE | 2020-10-19 19:16 | NUR ---
Report given to shift lab technician nurse, patient in no distress at this time, patient is in sinus rhythm, hemodynamically stable, afebrile. Patient has trach shiley 8, on susana vent ac 26 fio2 35%, patient is tolerating minimal sedation propofol 10mcg/kg/min. tube fedding continues, rectal tube in place, agllego intact with 850cc urine output.
[2020-10-19] MEDS: INSULIN GLARGINE,HUM 300 UNITS/3 ML CARTRIDGE SQ SCH (21:50)
[2020-10-20] VITALS (11 sets, daily range): BP systolic 106–163; BP diastolic 56–78
[2020-10-20] MEDS: NYSTATIN SUSPENSION 5 ML LIQUID UDC PO SCH ×5 (00:14→23:54)
[2020-10-20] MEDS: BLOOD SUGAR DIAGNOSTIC 1 EACH STRIP VI SCH ×5 (00:58→23:52)
[2020-10-20] MEDS: INSULIN REGULAR, HUMAN 300 UNIT/3 ML VIAL SQ PRN ×4 (00:59→23:53)
[2020-10-20] MEDS: MORPHINE SULFATE 2 MG/1 ML DISP.SYRIN IV PRN ×2 (01:07→07:58)
[2020-10-20 05:51] LABS: CREATININE 0.8 mg/dL (0.6-1.3); MAGNESIUM 1.7 mg/dL (1.8-2.4); POTASSIUM 3.9 mmol/L (3.5-5.1)
[2020-10-20] MEDS: ACIDOPHILUS/BULGARICUS CHEW TAB GT SCH ×3 (06:44→21:28)
[2020-10-20] MEDS: LEVOTHYROXINE SODIUM 125 MCG TABLET NG SCH (06:44)
[2020-10-20] MEDS: MEROPENEM 1 G in IV NORMAL SALINE 100 ML IV SCH ×3 (06:46→21:31)
[2020-10-20] MEDS: ASPIRIN EC 81 MG TABLET.DR PO SCH (07:54)
[2020-10-20] MEDS: FAMOTIDINE 20 MG TABLET GT SCH ×2 (07:54→20:35)
[2020-10-20] MEDS: CHOLECALCIFEROL 1,000 UNIT TABLET PO SCH (07:54)
[2020-10-20] MEDS: AMIODARONE HCL 200 MG TABLET PO SCH ×2 (07:54→20:51)
[2020-10-20] MEDS: ENOXAPARIN SODIUM 100 MG/ML DISP.SYRIN SQ SCH ×2 (07:57→20:36)
[2020-10-20] MEDS: SODIUM HYPOCHLORITE 0.125% (QUARTER STRENGTH) 473 ML BOTTLE TP SCH (08:00)
[2020-10-20] MEDS: Z GUARD REMEDY PASTE 57 GM TUBE TOP SCH ×2 (08:00→20:52)
[2020-10-20] MEDS: MAGNESIUM SULFATE/D5W 100 ML IV SCH ×2 (12:53→14:31)
[2020-10-20] MEDS: PROTEIN SUPPLEMENT (PROSTAT) 30 ML LIQUID PO SCH ×2 (12:54→18:12)
[2020-10-20] MEDS: INSULIN GLARGINE,HUM 300 UNITS/3 ML CARTRIDGE SQ SCH (20:49)
[2020-10-20] MEDS: LORAZEPAM 2 MG/1 ML VIAL IV PRN (21:05)
[2020-10-21] VITALS (17 sets, daily range): BP systolic 116–163; BP diastolic 56–79
[2020-10-21] MEDS: MORPHINE SULFATE 2 MG/1 ML DISP.SYRIN IV PRN ×2 (04:18→21:46)
[2020-10-21] MEDS: LEVOTHYROXINE SODIUM 125 MCG TABLET NG SCH (05:27)
[2020-10-21] MEDS: ACIDOPHILUS/BULGARICUS CHEW TAB GT SCH ×3 (05:27→21:08)
[2020-10-21] MEDS: MEROPENEM 1 G in IV NORMAL SALINE 100 ML IV SCH ×3 (05:27→21:09)
[2020-10-21] MEDS: NYSTATIN SUSPENSION 5 ML LIQUID UDC PO SCH ×4 (05:28→23:07)
[2020-10-21 05:30] LABS: BASOPHILS # (AUTO) 0.2 K/uL (0.0-8.0); BASOPHILS % (AUTO) 2.4 % (0.0-2.0); EOSINOPHILS # (AUTO) 0.4 K/uL (0.0-0.7); EOSINOPHILS % (AUTO) 5.4 % (0.0-7.0); HEMATOCRIT 30.3 % (31.2-41.9); HEMOGLOBIN 10.2 g/dL (10.9-14.3); LYMPHOCYTES # (AUTO) 1.4 K/uL (20.0-40.0); LYMPHOCYTES % (AUTO) 20.6 % (20.5-51.5); MEAN CORPUSCULAR HEMOGLOBIN 31.9 uug (24.7-32.8); MEAN CORPUSCULAR HGB CONC 34 g/dL (32.3-35.6); MEAN CORPUSCULAR VOLUME 94.9 fL (75.5-95.3); MONOCYTES # (AUTO) 0.5 K/uL (2.0-10.0); MONOCYTES % (AUTO) 7.6 % (0.0-11.0); NEUTROPHILS # (AUTO) 4.4 K/uL (1.8-8.9); PLATELET COUNT (AUTO) 339 K/uL (179-408); RED BLOOD CELL COUNT(AUTO) 3.19 MIL/uL (3.63-4.92); WHITE BLOOD COUNT (AUTO) 6.9 K/uL (3.8-11.8)
[2020-10-21 05:37] LABS: CREATININE 0.6 mg/dL (0.6-1.3); MAGNESIUM 1.9 mg/dL (1.8-2.4); PHOSPHOROUS 2.1 mg/dL (2.5-4.9)
[2020-10-21] MEDS: BLOOD SUGAR DIAGNOSTIC 1 EACH STRIP VI SCH ×4 (05:57→23:42)
[2020-10-21] MEDS: INSULIN REGULAR, HUMAN 300 UNIT/3 ML VIAL SQ PRN ×4 (05:58→23:43)
--- NOTE | 2020-10-21 06:54 | NUR ---
END OF SHIFT REPORT Patient rested well in between care; ativan given last night for comfort; had morphine this AM after AM care; repositioned q2h; trache and oral care done; needs attended; patient more awake; vital signs stable and is afebrile Addendum: 10/21/20 at 0657 by GINGER CONTRERAS RN wound dressing done to sacrum; adjusted flexi seal;
[2020-10-21] MEDS: ASPIRIN EC 81 MG TABLET.DR PO SCH (08:03)
[2020-10-21] MEDS: CHOLECALCIFEROL 1,000 UNIT TABLET PO SCH (08:04)
[2020-10-21] MEDS: FAMOTIDINE 20 MG TABLET GT SCH ×2 (08:04→21:08)
[2020-10-21] MEDS: AMIODARONE HCL 200 MG TABLET PO SCH ×2 (08:04→21:08)
[2020-10-21] MEDS: Z GUARD REMEDY PASTE 57 GM TUBE TOP SCH ×2 (08:06→21:08)
[2020-10-21] MEDS: ENOXAPARIN SODIUM 100 MG/ML DISP.SYRIN SQ SCH ×2 (08:06→21:10)
[2020-10-21] MEDS: SODIUM HYPOCHLORITE 0.125% (QUARTER STRENGTH) 473 ML BOTTLE TP SCH (08:07)
[2020-10-21] MEDS: LORAZEPAM 2 MG/1 ML VIAL IV PRN ×3 (08:32→23:52)
[2020-10-21] MEDS: PROTEIN SUPPLEMENT (PROSTAT) 30 ML LIQUID PO SCH ×3 (08:33→18:44)
[2020-10-21 09:56] LABS: ABG BASE EXCESS 1.4 mmol/L; ABG HCO3 23.9 mmol/L; ABG PCO2 30.8 mmHg (35.0-45.0); ABG PH 7.508 (7.350-7.450); ABG PO2 71.7 mmHg (75.0-100.0); ABG SITE RIGHT RADIAL; ABG TOTAL HEMOGLOBIN 11.3 G/dL (12.0-16.0); COHb 1.1 % (0.5-1.5); MetHb 0.3 % (0.0-1.5); O2Hb 93.1 % (94.0-97.0); VENT MODE VENT - A/C; VT, ABG 550 mL
[2020-10-21] MEDS ORDERED: NEUTRA PHOS PACKET GT ONE (12:45)
[2020-10-21] MEDS ORDERED: VECURONIUM BROMIDE 10 MG VIAL IV ONE (14:36)
--- NOTE | 2020-10-21 19:30 | NUR ---
PATIENT TRACH TO VENT ,OPEN EYES TO NAME BUT DOESN'T FOLLOW COMMANDS . ABLE TO MOVED HEAD FORM SIDE TO SIDE .SUCTION PATIENT VIA MOUTH AND VIA TRACH ,ORAL DONE, OFF PROPOFOL . CONTINUE TO MONITOR V/S AND LEVELS OF PAIN .
[2020-10-21] MEDS: INSULIN GLARGINE,HUM 300 UNITS/3 ML CARTRIDGE SQ SCH (21:22)
--- NOTE | 2020-10-21 21:30 | NUR ---
DUE MEDICATION GIVEN AND SCAN MEDS AND LANTUS GIVEN .
[2020-10-21] MEDS: IV NORMAL SALINE 250 ML IV PRN (21:44)
--- NOTE | 2020-10-21 21:57 | NUR ---
GIVEN MORPHINE PRN PATIENT RESTLESS MOVING HEAD FORM SIDE TO SIDE FACIAL GRIMACE NOTED . VENT BEEPING RR IS 24 ,27.CONTINUE TO MONITOR V/S AND LEVELS OF COMFORT .
[2020-10-22] VITALS (12 sets, daily range): BP systolic 104–149; BP diastolic 57–80
--- NOTE | 2020-10-22 04:30 | NUR ---
am care done .bath patient irrigated rectal tube with liquid stool brownish in color . changed soiled linens and gown.sacral wound dressing done as per wound care recommendation with dakins solution cover with Mepilex. z guard applied to sacral and bilateral groin . trach care done and suction via trach and oral care done ,nystatin applied to lips and mouth area . tf in progress via the peg tolerating flushed peg patent .
[2020-10-22 05:43] LABS: BASOPHILS # (AUTO) 0.1 K/uL (0.0-8.0); BASOPHILS % (AUTO) 1.3 % (0.0-2.0); EOSINOPHILS # (AUTO) 0.4 K/uL (0.0-0.7); EOSINOPHILS % (AUTO) 4.9 % (0.0-7.0); HEMATOCRIT 30.2 % (31.2-41.9); HEMOGLOBIN 9.9 g/dL (10.9-14.3); LYMPHOCYTES # (AUTO) 1.6 K/uL (20.0-40.0); MEAN CORPUSCULAR HEMOGLOBIN 31.2 uug (24.7-32.8); MEAN CORPUSCULAR HGB CONC 33 g/dL (32.3-35.6); MEAN CORPUSCULAR VOLUME 94.8 fL (75.5-95.3); MONOCYTES # (AUTO) 0.8 K/uL (2.0-10.0); MONOCYTES % (AUTO) 9.5 % (0.0-11.0); NEUTROPHILS # (AUTO) 5.2 K/uL (1.8-8.9); NEUTROPHILS % (AUTO) 64.3 % (38.5-71.5); PLATELET COUNT (AUTO) 383 K/uL (179-408); RED BLOOD CELL COUNT(AUTO) 3.18 MIL/uL (3.63-4.92); WHITE BLOOD COUNT (AUTO) 8.1 K/uL (3.8-11.8)
[2020-10-22] MEDS: MEROPENEM 1 G in IV NORMAL SALINE 100 ML IV SCH (05:48)
[2020-10-22] MEDS: NYSTATIN SUSPENSION 5 ML LIQUID UDC PO SCH ×3 (05:50→18:00)
[2020-10-22] MEDS: ACIDOPHILUS/BULGARICUS CHEW TAB GT SCH ×3 (05:52→21:04)
[2020-10-22] MEDS: LEVOTHYROXINE SODIUM 125 MCG TABLET NG SCH (05:52)
[2020-10-22 05:55] LABS: CREATININE 0.6 mg/dL (0.6-1.3); MAGNESIUM 1.8 mg/dL (1.8-2.4); PHOSPHOROUS 2.4 mg/dL (2.5-4.9); POTASSIUM 4.4 mmol/L (3.5-5.1)
[2020-10-22] MEDS: MORPHINE SULFATE 2 MG/1 ML DISP.SYRIN IV PRN ×2 (05:59→22:08)
--- NOTE | 2020-10-22 06:46 | NUR ---
prn morphine given and Ativan given prn see emar.
[2020-10-22] MEDS: BLOOD SUGAR DIAGNOSTIC 1 EACH STRIP VI SCH ×3 (07:03→18:00)
[2020-10-22] MEDS: INSULIN REGULAR, HUMAN 300 UNIT/3 ML VIAL SQ PRN ×3 (07:05→17:54)
[2020-10-22] MEDS: PROTEIN SUPPLEMENT (PROSTAT) 30 ML LIQUID PO SCH ×3 (08:33→17:51)
[2020-10-22] MEDS: ASPIRIN EC 81 MG TABLET.DR PO SCH (08:34)
[2020-10-22] MEDS: AMIODARONE HCL 200 MG TABLET PO SCH ×2 (08:34→21:05)
[2020-10-22] MEDS: FAMOTIDINE 20 MG TABLET GT SCH ×2 (08:34→21:05)
[2020-10-22] MEDS: CHOLECALCIFEROL 1,000 UNIT TABLET PO SCH (08:35)
[2020-10-22] MEDS: ENOXAPARIN SODIUM 100 MG/ML DISP.SYRIN SQ SCH (08:38)
[2020-10-22] MEDS: SODIUM HYPOCHLORITE 0.125% (QUARTER STRENGTH) 473 ML BOTTLE TP SCH (08:39)
[2020-10-22] MEDS: Z GUARD REMEDY PASTE 57 GM TUBE TOP SCH ×2 (08:39→21:05)
[2020-10-22] MEDS ORDERED: NEUTRA PHOS PACKET PO ONE (10:00)
[2020-10-22] MEDS ORDERED: FUROSEMIDE 20 MG/2 ML VIAL IV ONE (13:15)
[2020-10-22] MEDS ORDERED: ACID1TAB4 GT (14:11)
[2020-10-22] MEDS ORDERED: FAMO20TA8 GT (14:11)
[2020-10-22] MEDS ORDERED: CHOL10002 GT (14:11)
[2020-10-22] MEDS ORDERED: Insulin Glargine,Hum SQ (14:11)
[2020-10-22] MEDS ORDERED: LEVO125T8 GT (14:11)
[2020-10-22] MEDS ORDERED: ACET650S26 GT (14:11)
[2020-10-22] MEDS ORDERED: ASPI-618 GT (14:11)
[2020-10-22] MEDS ORDERED: PROT30LI GT (14:11)
[2020-10-22] MEDS ORDERED: APIX2.5T GT (14:11)
[2020-10-22] MEDS ORDERED: AMIO200T6 GT (14:11)
--- NOTE | 2020-10-22 16:30 | NUR ---
PATIENT REASSIGNMENT PATIENT WAS MOVED FROM THE CCU TO ROOM 206 TELE STATUS AT THIS TIME SHE IS AWAKE NON VERBAL ON VENT SEE SETTINGS HAS A TRACH NO SOB AT THIS TIME GENERALISED EDEMA NOTED LEFT UPPER ARM WITH PICC LINE 3 LUMEN INTACT SHE HAS A RECTAL TUBE WITH LOOSE STOOL BURNETT CATH IS INTACT WITH NO HEMATURIA AT THIS TIME ON FIRST STEP MARAL REPOSITIONED Q2H GT PATENT CONTINUED ON TUBE FEEDINGS JEVITY 1.2 AT 25 ML/HR AND TOLERATING DRESSING SACRAL IS INTACT MADE COMFORTABLE WILL CONTINUE TO OBSERVE.
[2020-10-22] MEDS ORDERED: SILVER NITRATE APPLICATOR STICK EACH TP ONE (18:45)
[2020-10-22] MEDS ORDERED: LIDOCAINE 1%-EPI 1:100,000 20 ML VIAL IJ ONE (18:45)
--- NOTE | 2020-10-22 18:47 | NUR ---
BLOOD SUGAR IS 283 INSULIN PER SLIDING SCALE GIVEN. NO S/S OF HYPER/HYPERGLYCEMIC REACTIONS AT THIS TIME.WILL CONTINUE TO OBSERVE AND PROVIDE COMFORT.
--- NOTE | 2020-10-22 19:30 | NUR ---
Pt received in bed, alert to self. Opens eyes to name and is able to turn head. Does not respond. Is trached on vent. Does not appear to be in distress. GT patent and running Glucerna at 25cc/hr. Peter in place and patient, no hematuria noted. Sacral wound debridement scheduled for tomorrow. Will attempt to call son Prem and obtain consent for procedure. No other issues or concerns at this time.
--- NOTE | 2020-10-22 19:49 | NUR ---
NOTED ORDER FOR SACRAL DEBRIDEMENT ENDORSED FOR PATIENTS SON TO BE CALL FOR CONSCENT.
[2020-10-22] MEDS: APIXABAN 2.5 MG TABLET GT SCH (21:55)
[2020-10-22] MEDS: INSULIN GLARGINE,HUM 300 UNITS/3 ML CARTRIDGE SQ SCH (21:56)
[2020-10-22] MEDS: LORAZEPAM 2 MG/1 ML VIAL IV PRN (22:32)
--- NOTE | 2020-10-22 22:40 | NUR ---
Pt appeared to be restless, turning head back and forth. Vent beeping indicating resistance to vent. Given morphine 2mg at 2208H. Still appeared to be restless, given ativan 2mg at 2232H. Now appears to be in less distress and more calm. No other issues or concerns at this time.
--- NOTE | 2020-10-23 00:25 | NUR ---
One attempt to call son Prem regarding wound debridement was made with no success. Will try again in the morning.
[2020-10-23] MEDS: NYSTATIN SUSPENSION 5 ML LIQUID UDC PO SCH ×4 (00:40→17:27)
[2020-10-23] MEDS: BLOOD SUGAR DIAGNOSTIC 1 EACH STRIP VI SCH ×4 (00:47→17:25)
[2020-10-23] MEDS: INSULIN REGULAR, HUMAN 300 UNIT/3 ML VIAL SQ PRN ×5 (00:49→17:26)
[2020-10-23 00:56] VITALS: BP 114/62
[2020-10-23] MEDS: LORAZEPAM 2 MG/1 ML VIAL IV PRN ×2 (02:18→04:53)
[2020-10-23 04:38] VITALS: BP 130/69
[2020-10-23] MEDS: LEVOTHYROXINE SODIUM 125 MCG TABLET NG SCH (05:24)
[2020-10-23] MEDS: ACIDOPHILUS/BULGARICUS CHEW TAB GT SCH ×3 (05:24→21:05)
--- NOTE | 2020-10-23 06:46 | NUR ---
Pt does not appear to be in distress, no pain or SOB noted. Pt on ventilator and tolerating well sating at 93%. Sinus tachy on monitor at 105. Rectal tube and gallego in place. CHELE PICC is patent. GT running at 35cc, pt tolerating well, no residual. Pt given Ativan 2mg periodically for restlessness, tolerated well. Scheduled for sacral debridement today, consent from son Prem obtained. Bed is locked and in lowest position. No other issues or concerns at this time, will endorse to day shift.
[2020-10-23 07:30] LABS: CREATININE 0.6 mg/dL (0.6-1.3); PHOSPHOROUS 2.3 mg/dL (2.5-4.9); POTASSIUM 4.4 mmol/L (3.5-5.1)
[2020-10-23] MEDS: APIXABAN 2.5 MG TABLET GT SCH (08:27)
[2020-10-23] MEDS: CHOLECALCIFEROL 1,000 UNIT TABLET PO SCH (08:27)
[2020-10-23] MEDS: ASPIRIN EC 81 MG TABLET.DR PO SCH (08:27)
[2020-10-23] MEDS: FAMOTIDINE 20 MG TABLET GT SCH ×2 (08:28→20:19)
[2020-10-23] MEDS: Z GUARD REMEDY PASTE 57 GM TUBE TOP SCH ×2 (08:31→20:43)
[2020-10-23] MEDS: AMIODARONE HCL 200 MG TABLET PO SCH (08:31)
[2020-10-23] MEDS: SODIUM HYPOCHLORITE 0.125% (QUARTER STRENGTH) 473 ML BOTTLE TP SCH (08:31)
[2020-10-23] MEDS: PROTEIN SUPPLEMENT (PROSTAT) 30 ML LIQUID PO SCH ×3 (11:16→15:44)
[2020-10-23 11:30] VITALS: BP 109/58
[2020-10-23] MEDS: ACETAMINOPHEN 650 MG SUPP.RECT RC PRN (11:45)
--- NOTE | 2020-10-23 12:00 | NUR ---
Temp 101. Dr tuttle notified. New order received and tylenol given. cooling measure implemented.
[2020-10-23] MEDS ORDERED: PIPERACILLIN SODIUM/TAZOBACTAM 3.375 G in IV DEXTROSE 5% 50 ML IV ONE (12:30)
[2020-10-23] MEDS: DOXYCYCLINE HYCLATE 100 MG TABLET GT SCH ×2 (12:58→20:19)
[2020-10-23] MEDS ORDERED: NEUTRA PHOS PACKET PO ONE (15:30)
[2020-10-23 16:00] VITALS: BP 105/62
--- NOTE | 2020-10-23 17:00 | NUR ---
Ambulance with RTfor quill picking machine operator at 1000pm to night so pt can get iv abx 2nd dose zosyn per casemanagement. temp 99.3 cooling measure continued and gave second dose per marry. will continue to monitor. oral care done. Prem son aware of discharge plan for tonight.
[2020-10-23 20:00] VITALS: BP 140/70
[2020-10-23] MEDS: ACETAMINOPHEN 650 MG/20.3 ML LIQUID UDC GT PRN (20:19)
[2020-10-23 20:23] VITALS: BP 140/70
[2020-10-23] MEDS: INSULIN GLARGINE,HUM 300 UNITS/3 ML CARTRIDGE SQ SCH (20:42)
[2020-10-23] MEDS ORDERED: METOPROLOL TARTRATE 25 MG TABLET GT SCH (21:00)
[2020-10-23] MEDS ORDERED: APIXABAN 2.5 MG TABLET GT SCH (21:00)
--- NOTE | 2020-10-23 21:30 | NUR ---
Telephone call to [facility], spoke to ISAC Guadalupe, report given regarding patient current condition and states understanding.
[2020-10-23] MEDS ORDERED: PIPERACILLIN SODIUM/TAZOBACTAM 3.37 G in IV DEXTROSE 5% 100 ML IV SCH (22:00)
--- NOTE | 2020-10-23 22:39 | NUR ---
Patient pecan picker by ambulance via gurney accompanied by 3 paramedics. Pt AAOx1-2, able to nod head when ask simple question and able to track. In no acute distress. Afebrile at time of pecan picker. VS WNL. All belongings and meds with patient.
[2020-10-24] MEDS ORDERED: AMIODARONE HCL 200 MG TABLET GT SCH (09:00)
[2020-11-06 20:16] LABS: HISTOPLASMA AB 0
== END 2020-10-23 23:01 | DRG 3 ==
LOC: ER 14:51 → EDSEX 14:51 → TRANSITION 18:25 → CCU 09-23 16:30 → MED 10-22 16:40 → TELE 10-22 17:17 → TELE-TD 10-23 07:00
PROVIDERS: ADMIT Registered Nurse; ATTEND Internal Medicine
PROC: XW033E5 Introduction of Remdesivir Anti-infective into Peripheral Vein, Percutaneous Approach, New Technology Group 5 (ICD-10-PCS; principal; 2020-09-23)
PROC: 02HV33Z Insertion of Infusion Device into Superior Vena Cava, Percutaneous Approach (ICD-10-PCS; 2020-09-23)
PROC: B548ZZA Ultrasonography of Superior Vena Cava, Guidance (ICD-10-PCS; 2020-09-23)
PROC: XW033H5 Introduction of Tocilizumab into Peripheral Vein, Percutaneous Approach, New Technology Group 5 (ICD-10-PCS; 2020-09-25)
PROC: 5A1955Z Respiratory Ventilation, Greater than 96 Consecutive Hours (ICD-10-PCS; 2020-09-28)
PROC: 0BH17EZ Insertion of Endotracheal Airway into Trachea, Via Natural or Artificial Opening (ICD-10-PCS; 2020-09-28)
PROC: XW14325 Transfusion of Convalescent Plasma (Nonautologous) into Central Vein, Percutaneous Approach, New Technology Group 5 (ICD-10-PCS; 2020-09-29)
PROC: 05HY33Z Insertion of Infusion Device into Upper Vein, Percutaneous Approach (ICD-10-PCS; 2020-10-02)
PROC: 0DH63UZ Insertion of Feeding Device into Stomach, Percutaneous Approach (ICD-10-PCS; 2020-10-14)
PROC: 0B113F4 Bypass Trachea to Cutaneous with Tracheostomy Device, Percutaneous Approach (ICD-10-PCS; 2020-10-18)
PROC: 0BJ08ZZ Inspection of Tracheobronchial Tree, Via Natural or Artificial Opening Endoscopic (ICD-10-PCS; 2020-10-18)
PROC: 0KBP0ZZ Excision of Left Hip Muscle, Open Approach (ICD-10-PCS; 2020-10-23)
PROC: 0KBN0ZZ Excision of Right Hip Muscle, Open Approach (ICD-10-PCS; 2020-10-23)
DX: A41.89 Other specified sepsis (principal); U07.1 COVID-19; J96.01 Acute respiratory failure with hypoxia; I21.A1 Myocardial infarction type 2; E43 Unspecified severe protein-calorie malnutrition; G92 Toxic encephalopathy; J12.82 Pneumonia due to coronavirus disease 2019; J69.0 Pneumonitis due to inhalation of food and vomit; J96.02 Acute respiratory failure with hypercapnia; J16.8 Pneumonia due to other specified infectious organisms; N17.0 Acute kidney failure with tubular necrosis; L89.154 Pressure ulcer of sacral region, stage 4; L89.324 Pressure ulcer of left buttock, stage 4; L89.314 Pressure ulcer of right buttock, stage 4; J15.9 Unspecified bacterial pneumonia; R65.21 Severe sepsis with septic shock; K72.00 Acute and subacute hepatic failure without coma; I50.23 Acute on chronic systolic (congestive) heart failure; D68.69 Other thrombophilia; E87.2 Acidosis; Z68.41 Body mass index [BMI] 40.0-44.9, adult; E22.2 Syndrome of inappropriate secretion of antidiuretic hormone; B37.49 Other urogenital candidiasis; E87.4 Mixed disorder of acid-base balance; I48.91 Unspecified atrial fibrillation; E66.01 Morbid (severe) obesity due to excess calories; R65.20 Severe sepsis without septic shock; E78.5 Hyperlipidemia, unspecified; E83.39 Other disorders of phosphorus metabolism; E83.42 Hypomagnesemia; E86.0 Dehydration; E86.1 Hypovolemia; K21.9 Gastro-esophageal reflux disease without esophagitis; E03.9 Hypothyroidism, unspecified; E88.09 Other disorders of plasma-protein metabolism, not elsewhere classified; Z71.3 Dietary counseling and surveillance; R74.01 Elevation of levels of liver transaminase levels; E11.65 Type 2 diabetes mellitus with hyperglycemia; Z79.84 Long term (current) use of oral hypoglycemic drugs; I11.0 Hypertensive heart disease with heart failure; D64.9 Anemia, unspecified
CPT/HCPCS: 36415; 36600; 43761; 70030-TC; 71045; 76770; 83605; 83615; 83735; 83970; 84100; 84155; 84156; 84165; 84300; 84443; 84478; 84550; 85025; 85610; 85651; 85730; 86038; 86140; 86160; 86480; 86706; 86803; 86850; 86900; 86901; 87040; 87070; 87077; 87086; 87328; 87340; 87806; 93005; 93307; 94002; 94003; 94660; A4217; A4663; G0378; J0282; J0330; J0456; J0690; J0696; J1100; J1200; J1650; J1815; J1940; J2060; J2185; J2248; J2250; J2270; J2370; J2543; J3262; J3370; J3475; J3480; J3490; J3535; J7030; J7040; J7050; J7060; J7070; J8499; P9016-BL; P9017-BL; P9047; U0003